=== PATIENT | male | born 1950 | race Caucasian/White ===

== ENCOUNTER → 2017-05-30 | Outpatient (CLI) | payer MEDICARE, BC ==
--- NOTE | 2017-05-30 16:09 | CT ---
EXAMINATION TYPE: High resolution CT chest DATE OF EXAM: 05/30/2017 COMPARISON: Radiograph 05/23/2017 HISTORY: 66-year-old male with emphysema and years of exposure to silica dust. TECHNIQUE: Contiguous axial scanning of the chest without IV contrast. HRCT technique was utilized wi th 1 mm slice thickness and 1 cm gap. Both supine and prone imaging was utilized. CT DLP: 268.00 mGycm Automated exposure control for dose reduction was used. FINDINGS: The heart is normal size without pericardial effusion. Coronary vessel calcifications are present in the ring marker for coronary artery disease. Aorta is normal caliber with mild prostatic calcifications and conventional arch vessel branching scott lilliam. Large caliber to the main right and left pulmonary arteries are 3.0 cm each, suggesting underlying pu lmonary arterial hypertension. Some calcified mediastinal lymph nodes are present particularly in the right paratracheal region jair uring up to 1.1 cm. Subcarinal lymph node shows punctate calcification and measures up to 1.2 cm. Evaluation of the lungs shows centrilobular and saphenous edema but additionally moderate bronchial w all thickening and mid lung predominate finding the median reticular densities. No areas of consolidation are seen. There is associated patchy groundglass in these areas as well whi ch extends superiorly to the mid and lower lung. No scarlet honeycombing though fine subpleural microcy stic changes noted. Visualized upper abdomen shows no gross abnormality. Bones: Partially visualized large lipoma deep to the left latissimus dorsi along the left posterior m id back. This measures up to 9.3 cm and can be followed clinically. Endplate spondylosis throughout. IMPRESSION: 1. INTERSTITIAL LUNG DISEASE WITH INTERSTITIAL FIBROSIS AND PATCHY AREAS OF GROUNDGLASS. THIS IS SUPE RIMPOSED ON EMPHYSEMA AND HAS A MID TO LOWER LUNG PREDOMINANCE. WHILE FINDINGS COULD RELATE TO SILICO SIS, THE LACK OF UPPER LUNG PREDOMINANCE MAKES THIS AN ATYPICAL CASE . CORRELATE FOR THE POSSIBILITY OF FIBROTIC NSIP. NO SCARLET HONEYCOMBING. 2. SOME CALCIFIED MEDIASTINAL LYMPH NODES COULD REFLECT PRIOR GRANULOMATOUS DISEASE OR A SEQUELA OF S ILICA INHALATION. 3. CAD AND PULMONARY ARTERIAL HYPERTENSION. 4. LARGE 9.3 CM LIPOMA DEEP TO THE LEFT LATISSIMUS DORSI ALONG THE MID BACK. THIS CAN BE FOLLOWED CLI NICALLY. IF ANY ENLARGEMENT IS NOTED, DEDICATED IMAGING CAN BE PERFORMED.
== END | disposition home or self-care (01) ==
LOC: RADCTMAIN 15:04
PROVIDERS: ATTEND Internal Medicine Critical Care Medicine
DX: J84.9 Interstitial pulmonary disease, unspecified (principal); J43.9 Emphysema, unspecified; I25.10 Atherosclerotic heart disease of native coronary artery without angina pectoris; I27.21 Secondary pulmonary arterial hypertension; D17.1 Benign lipomatous neoplasm of skin and subcutaneous tissue of trunk
CPT/HCPCS: 71250

== ENCOUNTER → 2017-08-24 | Outpatient (CLI) | payer MEDICARE, BC ==
[2017-08-24 13:12] LABS: HGB 15.4 gm/dL (13.0-17.5); Hypochromasia Marked; MCH 26.5 pg (25.0-35.0); MCHC 29.7 g/dL (31.0-37.0); MCV 89.2 fL (80.0-100.0); Mean Platelet Volume 7.6; Platelet Count 291 k/uL (150-450); RBC 5.84 m/uL (4.30-5.90); RDW 14.4 % (11.5-15.5); WBC 9.6 k/uL (3.8-10.6)
[2017-08-24 13:24] LABS: Anion Gap 14 mmol/L; Blood Urea Nitrogen 15 mg/dL (9-20); Carbon Dioxide 30 mmol/L (22-30); Chloride 99 mmol/L (98-107); Potassium 5.7 mmol/L (3.5-5.1); Sodium 143 mmol/L (137-145)
== END | disposition home or self-care (01) ==
LOC: LABPAT 12:27
PROVIDERS: ATTEND Internal Medicine Interventional Cardiology
DX: Z01.812 Encounter for preprocedural laboratory examination (principal); I73.9 Peripheral vascular disease, unspecified
CPT/HCPCS: 36415; 80051; 82565; 84520; 85027

== ENCOUNTER 2017-08-29 06:22 | Day surgery (SDC) | payer MEDICARE, BC ==
[2017-08-18 16:03] VITALS: BMI 35.7
[~2017-08-29 06:22] MED LIST: ALPRAZolam 0.25 MG TAB PO PRN; ASPIRIN 325 MG TAB PO STA; SODIUM CHLORIDE 0.9% 1,000 ML in EMPTY BAG 1 BAG IV ONE
[2017-08-29 07:12] VITALS: TEMP 98
[2017-08-29] MEDS ORDERED: SODIUM CHLORIDE 0.9% 1,000 ML IV ONE (07:31)
[2017-08-29] MEDS ORDERED: MIDAZOLAM 2 MG/2 ML VIAL IV ONE (08:11)
[2017-08-29] MEDS: LIDOCAINE 2% INJ 20 MG/ML SQ ONE ×2 (08:15→08:33)
[2017-08-29] MEDS ORDERED: METOPROLOL TARTRATE 5 MG/5 ML VIAL IVP ONE (08:23)
[2017-08-29] MEDS ORDERED: hydrALAZINE HCL 20 MG/ML 1 ML VIAL IV ONE (08:23)
[2017-08-29] MEDS: VERAPAMIL SYRINGE (5 MG/10 ML) INTRAARTER ONE ×2 (08:34→08:54)
[2017-08-29] MEDS ORDERED: HEPARIN SODIUM 1,000 UN/ML (10ML VL) IV ONE (08:37)
[2017-08-29] MEDS ORDERED: IODIXANOL 320 MG/ML 100 ML INTRAARTER ONE (08:54)
[2017-08-29] MEDS ORDERED: SODIUM CHLORIDE 0.9% 1,000 ML IV SCH (09:15)
--- NOTE | 2017-08-29 10:25 | AN ---
ANGIOGRAPHY REPORT PERIPHERAL ANGIOGRAM DATE OF SERVICE: 08/29/2017 PERFORMING PHYSICIAN: Gagandeep Montoya MD, fresh work wrapper layer. PROCEDURE PERFORMED: 1. An abdominal aortogram. 2. Bilateral lower extremities runoff. 3. Selective left common femoral artery angiogram. INDICATION: This is a pleasant 66-year-old gentleman who sees Dr. Ibanez in the office as an outpatient who is known to have peripheral arterial disease, who was experiencing bilateral lower extremity intermittent claudication. He was brought today to undergo an abdominal aortogram and bilateral lower extremity runoff. APPROACH: Right radial artery. COMPLICATION: None. LEVEL OF SEDATION: Moderate with sedation length of 44 minutes. PROCEDURE DESCRIPTION: After obtaining an informed consent, the patient was brought to the cardiac medical laboratory scientist. Initially I attempted accessing the left common femoral artery, but I was unable. At that point, the right radial artery was cannulated using micropuncture technique and the micropuncture wire passed easily then I placed a 5-Turkmen sheath in the right radial artery. After that, I did give the patient 2 mg of verapamil IA and 10,000 units of heparin IV. After that, I did an abdominal aortogram and bilateral lower extremities runoff using 5-Turkmen pigtail catheter, which was initially placed at the level of the renal arteries then it was pulled into above the bifurcation of the aorta into right and left common iliac arteries. After that I did select the left external iliac artery to do selective left common femoral artery angiogram. The procedure was completed without any complication. SELECTIVE PERIPHERAL ANGIOGRAM: 1. The abdominal aorta is calcified with mild to moderate disease only. 2. Common iliac arteries: The right common iliac artery is angiographically normal. The left common iliac artery has a lesion appeared to be in the range of 70% to 80%. 3. Internal iliac arteries: The right and left internal iliac arteries are patent. 4. External iliac arteries: The right and left external iliac arteries are patent. 5. The common femoral arteries: The right and left common femoral arteries appear to have mild disease only. 6. Profunda: The right and left profunda are patent. 7. The SFA: Both SFAs are occluded on a long segment extends from the ostium all the way to the popliteal. The right SFA has a stump. The SFA has possible stump seen. 8. Popliteal: The right and left popliteal are occluded at the P1 segment. 9. Below the knee: There are one-vessel runoff below the knee on the right side with AT and 2 vessel runoff below the knee on the left side with AT and peroneal. CONCLUSION: 1. Severe disease involving the left common iliac artery. 2. Occluded bilateral SFA as described above. 3. One vessel runoff below the knee on the right side and two-vessel runoff below the knee on the left side. POSTPROCEDURE MANAGEMENT: The patient was scheduled to undergo a POST HOLE DIGGER of the left common iliac artery as well as POST HOLE DIGGER of the bilateral SFA. MMODL / IJN: [id number] /
[2017-08-29 12:52] VITALS: RESP 18
[2017-08-29 13:41] VITALS: BP 165/79; PULSE 78
--- NOTE | 2017-09-04 14:30 | IR ---
EXAMINATION TYPE: IR angio abdominal w runoff DATE OF EXAM: 08/29/2017 COMPARISON: NONE HISTORY: Peripheral vascular occlusive disease. Fluoroscopy was provided to the referring clinician. See dictated report from cardiology. 7.4 minut es of fluoroscopy provided.
== END 2017-08-29 13:51 | disposition home or self-care (01) ==
LOC: CATHCVL 06:22
PROVIDERS: ATTEND Internal Medicine Interventional Cardiology
DX: I70.213 Atherosclerosis of native arteries of extremities with intermittent claudication, bilateral legs (principal); I70.0 Atherosclerosis of aorta; I25.10 Atherosclerotic heart disease of native coronary artery without angina pectoris; I10 Essential (primary) hypertension; Z86.73 Personal history of transient ischemic attack (TIA), and cerebral infarction without residual deficits; I25.2 Old myocardial infarction; Z95.5 Presence of coronary angioplasty implant and graft; E78.2 Mixed hyperlipidemia; I25.5 Ischemic cardiomyopathy; Z79.02 Long term (current) use of antithrombotics/antiplatelets; Z79.899 Other long term (current) drug therapy
CPT/HCPCS: 36246; 75625; 75716; 84132; C1894 ×2; C1769 ×3; J2001; J2250; J0360; Q9967; J1644

== ENCOUNTER → 2017-09-20 | Outpatient (CLI) | payer MEDICARE, BC ==
[2017-09-20 13:53] LABS: HGB 14.9 gm/dL (13.0-17.5); Hypochromasia Slight; MCH 26.4 pg (25.0-35.0); MCHC 30.4 g/dL (31.0-37.0); MCV 86.8 fL (80.0-100.0); Mean Platelet Volume 7.7; Platelet Count 253 k/uL (150-450); RBC 5.64 m/uL (4.30-5.90); RDW 14.8 % (11.5-15.5); WBC 10.3 k/uL (3.8-10.6)
[2017-09-20 14:11] LABS: Anion Gap 11 mmol/L; Blood Urea Nitrogen 15 mg/dL (9-20); Carbon Dioxide 28 mmol/L (22-30); Chloride 99 mmol/L (98-107); Potassium 4.9 mmol/L (3.5-5.1); Sodium 138 mmol/L (137-145)
== END | disposition home or self-care (01) ==
LOC: LABPAT 13:22
PROVIDERS: ATTEND Internal Medicine Interventional Cardiology
DX: Z01.812 Encounter for preprocedural laboratory examination (principal); I73.9 Peripheral vascular disease, unspecified
CPT/HCPCS: 36415; 80051; 82565; 84520; 85027

== ENCOUNTER 2017-09-27 10:04 | Day surgery (SDC) | payer MEDICARE, BC ==
[2017-09-27] MEDS ORDERED: ISOSORBIDE MONONITRATE ER 30 MG TAB.ER.24H PO STA (10:21)
[2017-09-27] MEDS ORDERED: LISINOPRIL 5 MG TAB PO STA (10:21)
[2017-09-27] MEDS ORDERED: ATENOLOL 25 MG TAB PO STA (10:21)
[2017-09-27] MEDS ORDERED: SODIUM CHLORIDE 0.9% 1,000 ML IV ONE ×2 (11:00→18:06)
[2017-09-27] MEDS ORDERED: MIDAZOLAM 2 MG/2 ML VIAL IVP ONE (13:05)
[2017-09-27] MEDS ORDERED: LIDOCAINE 2% INJ 20 MG/ML SQ ONE (13:11)
[2017-09-27] MEDS: fentaNYL (PF) 50 MCG/ML 2 ML AMP IVP ONE ×3 (13:18→14:13)
[2017-09-27] MEDS: HEPARIN SODIUM 1,000 UN/ML (10ML VL) IV ONE ×2 (13:21→15:00)
[2017-09-27] MEDS: MORPHINE SULFATE 4 MG/ML SYRINGE IVP ONE ×4 (14:28→18:08)
[2017-09-27] MEDS: MIDAZOLAM 2 MG/2 ML VIAL IVP ONE ×4 (14:34→15:56)
[2017-09-27] MEDS ORDERED: SODIUM CHLORIDE 0.9% 500 ML with niCARdipine 6.25 MG, NITROGLYCERIN-D5W PMX 0.05 MG, HE... IV ONE ×4 (15:01)
[2017-09-27] MEDS ORDERED: KETAMINE 10 MG/ML 20 ML VIAL ONE (16:40)
[2017-09-27] MEDS ORDERED: ePHEDrine SULFATE/0.9% NACL/PF 50 MG/5 ML SYRINGE IV ONE (16:40)
[2017-09-27] MEDS ORDERED: PROPOFOL 10 MG/ML 20 ML VIAL IV ONE (16:40)
[2017-09-27] MEDS ORDERED: HYDROmorphone (PF) 1 MG/ML ONE (16:40)
[2017-09-27] MEDS ORDERED: NITROGLYCERIN 1000MCG/10ML SYRINGE INTRAARTER ONE (17:38)
[2017-09-27] MEDS: niCARdipine Syringe (1,000 mcg/10 mL) INTRAARTER ONE ×2 (17:39→17:58)
[2017-09-27] MEDS ORDERED: IODIXANOL 320 MG/ML 100 ML INTRAARTER ONE (18:05)
[2017-09-27] MEDS ORDERED: CLOPIDOGREL 75 MG TAB PO ONE (18:24)
[2017-09-27] MEDS ORDERED: NITROGLYCERIN SL TABS 0.4 MG TAB SUBLINGUAL PRN (18:34)
[2017-09-27] MEDS ORDERED: ALBUTEROL NEBULIZED 2.5 MG/3 ML INHALATION PRN (18:34)
[2017-09-27] MEDS ORDERED: SODIUM CHLORIDE 0.9% 1,000 ML IV SCH (18:45)
[2017-09-27] MEDS ORDERED: ATROPINE SULFATE 0.1 MG/ML 10ML SYRINGE ONE (21:07)
[2017-09-27] MEDS: SYMBICORT 160-4.5 MCG INHALER INHALATION SCH (21:43)
[2017-09-27] MEDS ORDERED: MORPHINE SULFATE 4 MG/ML SYRINGE IVP PRN (22:06)
[2017-09-27 22:35] VITALS: BMI 36.1
--- NOTE | 2017-09-27 22:56 | AN ---
ANGIOGRAPHY REPORT . DATE OF SERVICE: September 27, 2017 PERFORMING PHYSICIAN: Gagandeep Montoya MD, dairy hand. PROCEDURE PERFORMED: 1. Selective right superficial femoral artery angiogram. 2. Selective right evtzz-bnj-gytn angiogram. 3. Selective left common femoral artery angiogram. 4. Successful stenting of the distal, mid, and proximal right superficial femoral artery using self expandable stents as it will be described later in this report with good angiographic results. INDICATION: This is a pleasant 66-year-old gentleman who was experiencing bilateral lower extremities intermittent claudication and underwent a peripheral angiogram a few weeks ago and that revealed occluded bilateral superficial femoral artery. He was brought today to undergo a DIRECTOR OF TRANSPORTATION of the right SFA. APPROACH: 1. Left common femoral artery. 2. Right anterior tibial artery. COMPLICATION: None. LEVEL OF SEDATION: Moderate with sedation length of 67 minutes. PROCEDURE DESCRIPTION: After obtaining an informed consent, the patient was brought to the cardiac prosthetic lab technician. The left common femoral artery was cannulated using micropuncture technique under ultrasound guidance, the micropuncture wire passed easily, then I placed a 6-Danish sheath in the left common femoral artery. It was 11 cm 6-Danish sheath. Subsequently I did select the right profunda using an 035 advantage wire with a 5-Danish rim catheter. After that, I did exchange my 11 cm 6-Danish sheath into 70 cm 6-Danish sheath using 035 advantage wire. The tip of the sheath was positioned in the right common femoral artery. At that point, anticoagulation was initiated using heparin and the patient was given a weight-based heparin with continuous ACT monitoring throughout the procedure. I did try crossing the chronic total occlusion of the right superficial femoral artery, but I was unable in antegrade technique, where the wire was just going behind 2 previous stents in the right SFA. The wire was going behind the stent struts. After I attempted crossing using an 014 wire, 018 as well as 035 wire. After that, I decided to go ahead and access the right anterior tibial artery and cross the ASSISTANT MANAGER QUALITY MANAGEMENT using retrograde technique. I did access the right anterior tibial artery using micropuncture technique with ultrasound guidance and I placed 4-Danish sheath over the right anterior tibial artery. After that, I was able to cross the chronic total occlusion of the right SFA using an 035 stiff Glidewire with the backup support of 035 CXI catheter. After that, I was able to snare the wire in the right common femoral artery to the sheath in the left common femoral artery. Then I did exchange my 035 Glidewire into 035 stiff wire using 035 CXI catheter. Subsequently I did multiple balloon angioplasty of the right SFA using initially 4.0 balloon then 5.0 balloon. After that, I did deploy distally 7.0 x 120 and Zilver PTX drug coated stent. In the midportion, I deployed 7 0 x 120 another Zilver PTX drug coated stent as well. In the very proximal portion, I deployed 70 x 150 another self expandable stent. There was overlap about 2 mm between the 3 stents. After that, I did post dilate everything using 6 mm balloon. The following angiogram showed haziness in the very proximal right SFA and seems to be there was a flow- limiting dissection which I decided to cover, so I did deploy 7 0 x 60 mm another Zilver PTX drug coated stent. The final angiogram showed good angiographic results without perforation and without dissection with good flow. The procedure was completed without any complication. After that I did exchange my 70 cm 6-Danish sheath into 11 cm 6-Danish sheath using a 035 Glidewire and the procedure was completed without any complication. POSTPROCEDURE MANAGEMENT: 1. Dual anti-platelet therapy. 2. Risk factors modifications. 3. DIRECTOR OF TRANSPORTATION of the left common iliac artery down the line. MMODL / IJN: [id number] /
[2017-09-28 06:30] LABS: Basophils % (A) 0 %; Eosinophils # (A) 0.2 k/uL (0-0.7); Eosinophils % (A) 2 %; HCT 41.9 % (39.0-53.0); HGB 12.9 gm/dL (13.0-17.5); Hypochromasia Moderate; Lymphocytes # (A) 1.4 k/uL (1.0-4.8); Lymphocytes % (A) 13 %; MCH 27.2 pg (25.0-35.0); MCHC 30.8 g/dL (31.0-37.0); MCV 88.5 fL (80.0-100.0); Mean Platelet Volume 7.3; Monocytes # (A) 0.4 k/uL (0-1.0); Monocytes % (A) 4 %; Neutrophils # (A) 8.5 k/uL (1.3-7.7); Neutrophils % (A) 80 %; Platelet Count 223 k/uL (150-450); RBC 4.73 m/uL (4.30-5.90); RDW 14.4 % (11.5-15.5); WBC 10.6 k/uL (3.8-10.6)
[2017-09-28 06:44] LABS: Anion Gap 11 mmol/L; Blood Urea Nitrogen 13 mg/dL (9-20); Calcium 8.9 mg/dL (8.4-10.2); Carbon Dioxide 29 mmol/L (22-30); Chloride 100 mmol/L (98-107); Glucose 122 mg/dL (74-99); Potassium 4.3 mmol/L (3.5-5.1); Sodium 140 mmol/L (137-145)
[2017-09-28] MEDS: SYMBICORT 160-4.5 MCG INHALER INHALATION SCH (08:25)
[2017-09-28] MEDS ORDERED: SPIRONOLACTONE 25 MG TAB PO SCH (09:00)
[2017-09-28] MEDS ORDERED: ATORVASTATIN 40 MG TAB PO SCH (09:00)
[2017-09-28] MEDS ORDERED: CLOPIDOGREL 75 MG TAB PO SCH (09:00)
[2017-09-28] MEDS ORDERED: predniSONE 10 MG TAB PO SCH (09:00)
[2017-09-28] MEDS ORDERED: ASPIRIN 325 MG TAB PO SCH (09:00)
[2017-09-28] MEDS ORDERED: ATENOLOL 25 MG TAB PO SCH (09:00)
[2017-09-28] MEDS ORDERED: FUROSEMIDE 40 MG TAB PO SCH (09:00)
[2017-09-28] MEDS ORDERED: ISOSORBIDE MONONITRATE ER 30 MG TAB.ER.24H PO SCH (09:00)
[2017-09-28 09:35] VITALS: BP 142/89; PULSE 82; RESP 18; TEMP 97.9
--- NOTE | 2017-09-28 09:38 | IR ---
EXAMINATION TYPE: IR waitstaff captain femoral popliteal DATE OF EXAM: 09/27/2017 COMPARISON: NONE HISTORY: Peripheral vascular occlusive disease. Fluoroscopy was provided to the referring clinician. See dictated report from cardiology.
--- NOTE | 2017-09-28 09:45 | DS ---
DISCHARGE SUMMARY BRIEF HISTORY: This is a pleasant 66-year-old gentleman who was admitted to the hospital yesterday and underwent successful percutaneous peripheral intervention of the right SFA with good angiographic results and without any complication. On followup with him today, he does have soft and nontender left groin. He is going to be discharged home on dual anti-platelet therapy and I will follow up with the patient in a week in the office. MMNELDA / JUAN CN: [id number] /
--- NOTE | 2017-09-28 09:46 | US ---
EXAMINATION TYPE: US guide vascular access DATE OF EXAM: 09/27/2017 COMPARISON: NONE HISTORY: Peripheral vascular occlusive disease. Ultrasound guidance was provided to the referring clinician. See dictated report from cardiology.
== END 2017-09-28 09:11 | disposition home or self-care (01) ==
LOC: CATHCVL 10:04 → 6SEL 19:28 → CATHCVL 09-28 09:11
PROVIDERS: ATTEND Internal Medicine Interventional Cardiology
DX: I70.211 Atherosclerosis of native arteries of extremities with intermittent claudication, right leg (principal); I10 Essential (primary) hypertension; I25.10 Atherosclerotic heart disease of native coronary artery without angina pectoris; E78.2 Mixed hyperlipidemia; I25.5 Ischemic cardiomyopathy; I71.9 Aortic aneurysm of unspecified site, without rupture; J44.9 Chronic obstructive pulmonary disease, unspecified; G47.33 Obstructive sleep apnea (adult) (pediatric); J18.9 Pneumonia, unspecified organism; N20.0 Calculus of kidney; Z99.89 Dependence on other enabling machines and devices; Z95.5 Presence of coronary angioplasty implant and graft; I25.2 Old myocardial infarction; Z86.73 Personal history of transient ischemic attack (TIA), and cerebral infarction without residual deficits; F17.210 Nicotine dependence, cigarettes, uncomplicated; Z79.899 Other long term (current) drug therapy; Z79.51 Long term (current) use of inhaled steroids; Z79.52 Long term (current) use of systemic steroids
CPT/HCPCS: 94640; 37226; 85347; 80048; 85025; 76937; C1894 ×3; C1773; C1769 ×9; C1725 ×2; C1887; C1876; C1874 ×2; J2001; J2250; J2270 ×2; J1644 ×3; Q9967; J3010; J7512

== ENCOUNTER → 2017-10-23 | Outpatient (CLI) | payer MEDICARE, BC ==
[2017-10-23 14:17] LABS: Anion Gap 12 mmol/L; Blood Urea Nitrogen 15 mg/dL (9-20); Carbon Dioxide 28 mmol/L (22-30); Chloride 100 mmol/L (98-107); Sodium 140 mmol/L (137-145)
[2017-10-23 14:25] LABS: HCT 42.4 % (39.0-53.0); HGB 12.8 gm/dL (13.0-17.5); Hypochromasia Marked; MCH 26.6 pg (25.0-35.0); MCHC 30.3 g/dL (31.0-37.0); MCV 87.8 fL (80.0-100.0); Mean Platelet Volume 7.4; Platelet Count 356 k/uL (150-450); RBC 4.82 m/uL (4.30-5.90); RDW 14.7 % (11.5-15.5); WBC 11.5 k/uL (3.8-10.6)
== END | disposition home or self-care (01) ==
LOC: LABPAT 13:18
PROVIDERS: ATTEND Internal Medicine Interventional Cardiology
DX: Z01.812 Encounter for preprocedural laboratory examination (principal); I73.9 Peripheral vascular disease, unspecified
CPT/HCPCS: 36415; 80051; 82565; 84520; 85027

== ENCOUNTER 2017-11-01 07:27 | Inpatient (IN) | payer MEDICARE, BC ==
[2017-10-26 17:37] VITALS: BMI 34.9
[2017-11-01] MEDS ORDERED: ISOSORBIDE MONONITRATE ER 30 MG TAB.ER.24H PO STA (08:06)
[2017-11-01] MEDS ORDERED: LISINOPRIL 5 MG TAB PO STA (08:06)
[2017-11-01] MEDS ORDERED: ATENOLOL 25 MG TAB PO STA (08:06)
[2017-11-01 08:08] LABS: Basophils % (A) 0 %; Eosinophils # (A) 0.2 k/uL (0-0.7); Eosinophils % (A) 2 %; HCT 40.9 % (39.0-53.0); HGB 12.7 gm/dL (13.0-17.5); Hypochromasia Moderate; Lymphocytes # (A) 1.9 k/uL (1.0-4.8); Lymphocytes % (A) 18 %; MCH 26.7 pg (25.0-35.0); Mean Platelet Volume 7.2; Monocytes # (A) 0.5 k/uL (0-1.0); Monocytes % (A) 5 %; Neutrophils # (A) 7.8 k/uL (1.3-7.7); Neutrophils % (A) 74 %; Platelet Count 318 k/uL (150-450); RBC 4.76 m/uL (4.30-5.90); RDW 15.2 % (11.5-15.5); WBC 10.6 k/uL (3.8-10.6)
[2017-11-01] MEDS ORDERED: PHENYLEPHRINE-0.9% NACL SYG 1 MG/10 ML SYRINGE ONE (09:20)
[2017-11-01] MEDS ORDERED: fentaNYL (PF) 50 MCG/ML 2 ML AMP ONE (09:20)
[2017-11-01] MEDS ORDERED: PROPOFOL 10 MG/ML 20 ML VIAL IV ONE (09:20)
[2017-11-01] MEDS ORDERED: ePHEDrine SULFATE/0.9% NACL/PF 50 MG/5 ML SYRINGE IV ONE (09:20)
[2017-11-01] MEDS ORDERED: MIDAZOLAM 2 MG/2 ML VIAL ONE (09:20)
[2017-11-01] MEDS ORDERED: HEPARIN SODIUM,PORCINE 10,000 UNIT/ML 1 ML VIAL ONE (09:20)
[2017-11-01] MEDS ORDERED: LIDOCAINE 2% INJ 20 MG/ML SQ ONE (09:47)
[2017-11-01] MEDS ORDERED: IV FLUID CONTINUATION 1,000 ML IV ONE (11:30)
[2017-11-01] MEDS ORDERED: IODIXANOL 320 MG/ML 100 ML INTRAARTER ONE ×3 (12:25→13:01)
[2017-11-01] MEDS ORDERED: NITROGLYCERIN 1000MCG/10ML SYRINGE INTRAARTER ONE ×2 (12:58→13:00)
[2017-11-01] MEDS ORDERED: niCARdipine Syringe (1,000 mcg/10 mL) INTRAARTER ONE (12:58)
[2017-11-01] MEDS ORDERED: niCARdipine Syringe (1,000 mcg/10 mL) INTRACORON ONE (12:58)
[2017-11-01] MEDS: fentaNYL (PF) 50 MCG/ML 2 ML AMP IV ONE ×3 (13:00→16:55)
[2017-11-01] MEDS ORDERED: MIDAZOLAM 2 MG/2 ML VIAL IV ONE (13:00)
[2017-11-01] MEDS ORDERED: IODIXANOL 270 MG/ML 50 ML ML INTRAARTER ONE (13:01)
[2017-11-01] MEDS ORDERED: SYMBICORT 160-4.5 MCG INHALER INHALATION PRN (14:21)
[2017-11-01] MEDS ORDERED: NITROGLYCERIN SL TABS 0.4 MG TAB SUBLINGUAL PRN (14:21)
[2017-11-01] MEDS ORDERED: SODIUM CHLORIDE 0.9% 1,000 ML IV SCH (14:30)
[2017-11-01] MEDS: ePHEDrine 50 MG/ML 1 ML AMP IVP ONE ×4 (14:40→15:41)
--- NOTE | 2017-11-01 15:00 | IR ---
Fluoroscopy HISTORY: Peripheral vascular occlusive disease 82 minutes fluoroscopy time supplied to the referring clinician. 1040 intraoperative C-arm images do cument the procedure. See dictated report from cardiology.
--- NOTE | 2017-11-01 15:27 | PTCA ---
PERCUTANEOUSTRANS CORORONARY ANGIOGRAPHY PERCUTANEOUS PERIPHERAL INTERVENTION: DATE OF SERVICE: 11/01/2017. PERFORMING PHYSICIAN: Gagandeep Montoya MD, Steel Box Toe Inserter. PROCEDURE PERFORMED: 1. Selective left cgdjp-qoq-gppn angiogram. 2. Selective left SFA angiogram. 3. Selective left common femoral artery angiogram. 4. Selective left common iliac artery angiogram. 5. Successful crossing chronic total occlusion of the left SFA on the long segment. 6. An atherectomy of the left SFA using the TurboHawk device. 7. Balloon angioplasty of the left SFA. 8. Intravascular ultrasound IVUS of the left popliteal and left SFA. 9. Intravascular ultrasound IVUS of the left SFA and left common iliac artery. 10.Successful stenting of the left SFA. 11.Successful stenting of the left popliteal. 12.Successful stenting of the left common iliac artery. INDICATION: This is a pleasant 67-year-old gentleman who was experiencing bilateral lower extremities intermittent claudication and he underwent a peripheral angiogram a few weeks ago and that showed the occlusion of bilateral SFA. He underwent successful percutaneous coronary intervention of the right SFA and was brought today to undergo percutaneous peripheral intervention of the left SFA. APPROACH: Right common femoral artery. COMPLICATION: None. LEVEL OF SEDATION: Deep sedation was performed with the anesthesiologist in the room. The procedure was performed under general anesthesia and the patient was intubated. None. PROCEDURE DESCRIPTION: After obtaining an informed consent, the patient was brought to the Cardiac Final Inspector Balance Wheel. The right common femoral artery was cannulated using micropuncture technique. The micropuncture wire passed easily, then I placed a 6-Liberian sheath 11 cm in the right common femoral artery. At that point, anticoagulation was initiated using heparin and the patient was given a weight-based heparin. I gave the patient 10,000 units of heparin IV and I did monitor the ACT throughout the procedure. After that, I did select the left profunda using 5-Liberian Rim catheter, after that I did select left profunda using a 5-Liberian Rim catheter with 0.35 advantage wire. After that, I did exchange my 11 cm sheath into 55 cm 6-Liberian Raabe sheath using an 0,35 advantage wire. The tip of the sheath was positioned in the left common femoral artery. Subsequently, I was able to find the stump of the left SFA and cross the chronic total occlusion of the left SFA using a 0.18 paredes Glidewire and subsequently, a 0.35 stiff Glidewire. After that, I did that with the backup support of 0.35 CXI catheter. After that, I did advance the CXI catheter, which was 0.18 CXI catheter into the left popliteal to prove that I was in the true lumen. Because of the difficulties advancing the CXI catheter, I did not attempted doing atherectomy right away, but I did balloon angioplasty using initially 3 mm coronary balloon and after that 4 mm peripheral balloon. After that, I did intravascular ultrasound IVUS of the left SFA which showed that I was in subintimal space in the mid and distal SFA and in the true lumen in the proximal left SFA. Because of that, I did atherectomy using the TurboHawk device only on the proximal part of the left SFA. Subsequently, I did balloon angioplasty using 6 mm balloon by 250 mm balloon. After that, I reassessed the angiogram of the left SFA and I decided to do a drug-coated balloon on the proximal and distal portion including the popliteal and stenting of the midportion. For the midportion, I did deploy 7.0 x 140 mm Zilver PTX drug-coated stent where the stent was positioned under fluoroscopy guidance and deployed under fluoroscopy guidance as well. I did post dilate the stent using 6 mm balloon. For the proximal SFA and for the distal left SFA, I did balloon angioplasty using a drug-coated balloon. Distally, I did use coated balloon and proximally I did use in back to drug-coated balloon. Both balloons were 6 mm balloon. The following angiogram showed haziness in the left SFA with sluggish flow. I decided to stent that area, so I did deploy the Supera stent, which was the Supera was 6 x 150 mm stent where again the stent was positioned under fluoroscopy guidance and deployed under fluoroscopy guidance. I did overlap between the 2 stents between the Supera as well as Zilver PTX in the mid SFA. For the proximal left SFA, I did deploy another Zilver PTX which was 7 x 80 mm Zilver PTX in the proximal left SFA with again overlap between this stent and the stent in the mid left SFA. After that, I did balloon angioplasty of over the overlap area between the Zilver PTX in the mid SFA and the other Zilver in the proximal left SFA and superior in the distal left SFA. I did balloon that area using 6 mm balloon. The following angiogram showed good angiographic results. After that, I did selective left common iliac artery angiogram. I did direct stenting of the of the lesion in the left common iliac artery using 8 x 39 mm Omnilink stent where the stent was positioned under fluoroscopy guidance and deployed again under 12 atmospheres for about 1 minute. The following angiogram showed good angiographic results and the procedure was completed without any complication. After that, I did exchange my 55 cm 6-Liberian sheath into 11 cm 6-Liberian sheath using 0.35 advantage wire. The procedure was completed without any complication. POSTPROCEDURE MANAGEMENT: 1. Dual anti-platelet therapy. 2. Risk factors modifications. 3. Follow up with the patient. MMODL / IJN: [id number] /
[2017-11-01] MEDS ORDERED: LACTATED RINGERS 1,000 ML IV ONE ×4 (15:34→16:28)
[2017-11-01 16:24] LABS: HCT 33.4 % (39.0-53.0); HGB 10.2 gm/dL (13.0-17.5); Hypochromasia Marked; MCH 27.2 pg (25.0-35.0); MCHC 30.4 g/dL (31.0-37.0); MCV 89.4 fL (80.0-100.0); Mean Platelet Volume 7.6; Platelet Count 278 k/uL (150-450); RBC 3.74 m/uL (4.30-5.90); RDW 15.1 % (11.5-15.5); WBC 14.2 k/uL (3.8-10.6)
[2017-11-01 17:28] LABS: Glucose,Whole Blood 100 mg/dL (75-99)
[2017-11-01] MEDS ORDERED: SODIUM CHLORIDE 0.9% 250 ML IV ONE (18:03)
[2017-11-01] MEDS ORDERED: NOREPINEPHRIN 4 MG-0.9% NS PMX 4 MG/250 ML ML IV SCH (18:15)
[2017-11-01] MEDS ORDERED: MORPHINE SULFATE 4MG/4ML SYRG IVP PRN (19:13)
[2017-11-01] MEDS ORDERED: OXYMETAZOLINE 0.05% NASL SPRAY 1 SPRAY BOTTLE NASAL STA (19:29)
[2017-11-01 21:29] LABS: Basophils % (A) 0 %; Eosinophils % (A) 0 %; HCT 32.7 % (39.0-53.0); HGB 9.9 gm/dL (13.0-17.5); Hypochromasia Moderate; Lymphocytes # (A) 1.6 k/uL (1.0-4.8); Lymphocytes % (A) 11 %; MCH 26.5 pg (25.0-35.0); MCHC 30.2 g/dL (31.0-37.0); Mean Platelet Volume 6.9; Monocytes # (A) 0.5 k/uL (0-1.0); Monocytes % (A) 3 %; Neutrophils # (A) 11.8 k/uL (1.3-7.7); Neutrophils % (A) 83 %; Platelet Count 277 k/uL (150-450); RBC 3.72 m/uL (4.30-5.90); RDW 14.8 % (11.5-15.5); WBC 14.2 k/uL (3.8-10.6)
[2017-11-02 05:14] LABS: Basophils % (A) 0 %; Eosinophils # (A) 0.1 k/uL (0-0.7); Eosinophils % (A) 1 %; HCT 33.1 % (39.0-53.0); HGB 10.2 gm/dL (13.0-17.5); Hypochromasia Moderate; Lymphocytes # (A) 1.8 k/uL (1.0-4.8); Lymphocytes % (A) 15 %; MCH 27.2 pg (25.0-35.0); MCHC 30.8 g/dL (31.0-37.0); MCV 88.2 fL (80.0-100.0); Monocytes # (A) 0.5 k/uL (0-1.0); Monocytes % (A) 4 %; Neutrophils % (A) 78 %; Platelet Count 278 k/uL (150-450); RBC 3.75 m/uL (4.30-5.90); RDW 14.7 % (11.5-15.5); WBC 11.6 k/uL (3.8-10.6)
[2017-11-02] MEDS: ALBUTEROL NEBULIZED 2.5 MG/3 ML INHALATION PRN ×2 (06:51→13:20)
[2017-11-02] MEDS ORDERED: ISOSORBIDE MONONITRATE ER 30 MG TAB.ER.24H PO SCH (09:00)
[2017-11-02] MEDS ORDERED: CLOPIDOGREL 75 MG TAB PO SCH (09:00)
[2017-11-02] MEDS ORDERED: LISINOPRIL 5 MG TAB PO SCH (09:00)
[2017-11-02] MEDS ORDERED: ATORVASTATIN 40 MG TAB PO SCH (09:00)
[2017-11-02] MEDS ORDERED: SPIRONOLACTONE 25 MG TAB PO SCH (09:00)
[2017-11-02] MEDS ORDERED: predniSONE 20 MG TAB PO SCH (09:00)
[2017-11-02] MEDS ORDERED: ATENOLOL 25 MG TAB PO SCH (09:00)
[2017-11-02] MEDS ORDERED: FUROSEMIDE 40 MG TAB PO SCH (09:00)
[2017-11-02] MEDS ORDERED: ASPIRIN 325 MG TAB PO SCH (09:00)
[2017-11-02 12:02] VITALS: TEMP 98.1
[2017-11-02] MEDS ORDERED: MORPHINE ORAL SOLN 10 MG/5 ML CUP PO PRN (13:35)
[2017-11-02 13:39] VITALS: PULSE 66
[2017-11-02 13:45] VITALS: BP 94/47
[2017-11-02 13:46] VITALS: RESP 20
--- NOTE | 2017-11-02 20:34 | DS ---
DISCHARGE SUMMARY ADMISSION DATE: November 01, 2017. DISCHARGE DATE: November 02, 2017. BRIEF HISTORY: This is a pleasant 66-year-old gentleman with known history of severe peripheral arterial disease who had symptoms of intermittent claudication, was admitted to the hospital yesterday and underwent successful recanalized the left superficial femoral artery from the right groin approach. The procedure was performed under general anesthesia. The procedure was a long extended procedure that lasted about 5 hours with good angiographic results and successful opening of the left superficial femoral artery. On follow up with the patient today, he is doing good. The right groin which was the access site is soft nontender and without any bruises. The patient is going to be discharged home on dual anti-platelet therapy as well as on statin. I will follow up with the patient next week in the office. MELISSA / CHIKIS: [id number] /
--- NOTE | 2017-11-03 12:48 | CDI ---
Last Revision, June 2017 Documentation Clarification Form Date: 11/03/17 From: Nkechi Lozano Phone: If you have a question regarding this query, please contact Parul Cho at [phone] between 8am and 5pm. Admit Date: 11/01/2017 4:30:00 PM Patient Name: Flaquito Lopez Visit Number: [id number] Discharge Date: 11/02/17 ATTENTION: The Clinical Documentation Specialists (CDI) and [facility] Coding Staff appreciate your assistance in clarifying documentation. Please respond to the clarification below the line at the bottom and electronically sign. The CDI & [facility] Coding staff will review the response and follow-up if needed. Please note: Queries are made part of the Legal Health Record. If you have any questions, please contact the author of this message via ITS. Dr. Gagandeep Montoya The patient had agnioplasty and stent insertion of the left SFA, left popliteal and left common iliac. Patient history/risk factorsThe patient has a history of atherosclerosi of the lower extremities with total occlusion of the left SFA. In your professional opinion, can you please clarify the types of stents that were implanted in the left SFA, popliteal and common iliac arteries? Drug eluting Non-drug eluting Other, please specify Unable to determine MTDD
--- NOTE | 2017-11-03 12:57 | CDI ---
Last Revision, June 2017 Documentation Clarification Form Date: 11/03/17 From: Nkechi Lozano Phone: If you have a question regarding this query, please contact Parul Cho at [phone] between 8am and 5pm. Admit Date: 11/01/2017 4:30:00 PM Patient Name: Flaquito Lopez Visit Number: [id number] Discharge Date: 11/02/17 ATTENTION: The Clinical Documentation Specialists (CDI) and [facility] Coding Staff appreciate your assistance in clarifying documentation. Please respond to the clarification below the line at the bottom and electronically sign. The CDI & [facility] Coding staff will review the response and follow-up if needed. Please note: Queries are made part of the Legal Health Record. If you have any questions, please contact the author of this message via ITS. Dr. Gagandeep Montoya, The patient had angioplasty and stent insertion of the left SFA, common iliac artery and popliteal artery on an outpatient basis. On 11/01/17, the patient was admitted as an inpatient. Patient history/risk factors: PVD due to atherosclerosis of the bilateraly lower extremities with intermittent claudication. Clinical Indicators: Per nursing documentation, the patient had a nose bleed and required intubation during the procedure. Vital Signs: On admission to inpatient: T. 98.1, P 64, R. 18, BP 119/61. Resp went up after admission to 27 - 30. In your professional opinion, can you please clarify the reason the patient was admitted as inpatient after surgery? Other, please specify Unable to determine . MTDD
--- NOTE | 2017-11-16 10:58 | AN ---
ANGIOGRAPHY REPORT ADDENDUM: The patient was admitted as inpatient because the procedure was performed under general anesthesia. MMNELDA / JUAN CN: [id number] /
== END 2017-11-02 14:15 | disposition home or self-care (01) | DRG 271 ==
LOC: CATHCVL 07:27 → 6SEL 14:11 → 6ICU 15:44 → CATHCVL 16:29 → 6ICU 16:30
PROVIDERS: ADMIT Internal Medicine Interventional Cardiology; ATTEND Internal Medicine Interventional Cardiology
PROC: B41GYZZ Fluoroscopy of Left Lower Extremity Arteries using Other Contrast (ICD-10-PCS; 2017-11-01)
PROC: B44GZZ3 Ultrasonography of Left Lower Extremity Arteries, Intravascular (ICD-10-PCS; 2017-11-01)
PROC: 047L36Z Dilation of Left Femoral Artery with Three Drug-eluting Intraluminal Devices, Percutaneous Approach (ICD-10-PCS; principal; 2017-11-01 08:30)
PROC: 04CL3ZZ Extirpation of Matter from Left Femoral Artery, Percutaneous Approach (ICD-10-PCS; 2017-11-01 08:30)
PROC: 047D34Z Dilation of Left Common Iliac Artery with Drug-eluting Intraluminal Device, Percutaneous Approach (ICD-10-PCS; 2017-11-01 08:30)
PROC: 047N34Z Dilation of Left Popliteal Artery with Drug-eluting Intraluminal Device, Percutaneous Approach (ICD-10-PCS; 2017-11-01 08:30)
DX: I70.213 Atherosclerosis of native arteries of extremities with intermittent claudication, bilateral legs (principal); I70.92 Chronic total occlusion of artery of the extremities; J44.9 Chronic obstructive pulmonary disease, unspecified; E78.2 Mixed hyperlipidemia; I10 Essential (primary) hypertension; I25.10 Atherosclerotic heart disease of native coronary artery without angina pectoris; I25.2 Old myocardial infarction; G47.33 Obstructive sleep apnea (adult) (pediatric); F17.210 Nicotine dependence, cigarettes, uncomplicated; I25.5 Ischemic cardiomyopathy; Z86.73 Personal history of transient ischemic attack (TIA), and cerebral infarction without residual deficits; Z79.52 Long term (current) use of systemic steroids; Z79.899 Other long term (current) drug therapy; Z95.5 Presence of coronary angioplasty implant and graft; Z71.6 Tobacco abuse counseling
CPT/HCPCS: 37221; 37227; 37252; 37253; 82565; 85025; 85027; 94640

== ENCOUNTER → 2018-05-17 | Outpatient (CLI) | payer MEDICARE, BC ==
--- NOTE | 2018-05-17 08:58 | CT ---
EXAMINATION TYPE: CT chest wo con DATE OF EXAM: 05/17/2018 COMPARISON: 05/30/2017 HISTORY: Interstitial lung disease CT DLP: 916.30 mGycm, Automated exposure control for dose reduction was used. CONTRAST: None TECHNIQUE: Axial images were obtained at 1 mm thick sections at 10 mm intervals. This will limit po rtions of the examination which may not be visualized within the [id number]. Images were obtained in the prone and supine views. FINDINGS: Portion of the thyroid visualized is normal. There is a focal area of increased density and calcification along the right midlung. Series 8 image 15. This area is a change from comparison. Some calcification is within the major fissure just inferi or to this region. There is some calcification and architectural distortion within the lateral right lung with tenting of the pleural margin. Series 8 image 19. This is an interval change from compariso n. Groundglass opacity increased linear markings are present through the mid and lower lung ryan sugge stive for pulmonary fibrosis. This may be progressive from comparison. No enlarged mediastinal or hilar adenopathy is evident. The ascending aorta diameter at the level o f the main pulmonary artery is 3.2 cm. The main pulmonary artery diameter at the bifurcation is 3.7 cm. Correlate for pulmonary hypertension. Limited CT sections are obtained through the upper abdomen. Abdomen is essentially unremarkable. Fat posterior to the left kidney level into the subcutaneous tissues again evident. This is not appear en larged. IMPRESSIONS: 1. Increasing changes throughout the bilateral lungs compatible with worsening pulmonary fibrosis. 2. Some scarring calcification may be developing in the right mid to lower lung field periphery. This is an interval change from last year.
== END | disposition home or self-care (01) ==
LOC: RADCTMAIN 07:58
PROVIDERS: ATTEND Internal Medicine Critical Care Medicine
DX: J84.10 Pulmonary fibrosis, unspecified (principal)
CPT/HCPCS: 71250

== ENCOUNTER 2018-12-17 09:57 | Emergency (ER) | payer MEDICARE, BC ==
[2018-12-17 10:07] VITALS: RESP 18
[2018-12-17] MEDS ORDERED: ASPIRIN 325 MG TAB PO STA (10:22)
[2018-12-17] MEDS ORDERED: SODIUM CHLORIDE 0.9% 1,000 ML IV STA (10:22)
--- NOTE | 2018-12-17 10:25 | ED ---
General Adult HPI - General Chief complaint: Neuro Symptoms/Deficit Stated complaint: poss stroke Time Seen by Provider: 12/17/18 10:10 Source: patient, RN notes reviewed, old records reviewed Mode of arrival: wheelchair Limitations: no limitations - History of Present Illness Initial comments: Patient is a 68-year-old male presents emergency department today for evaluation for intermittent facial tingling and numbness for the past 2 weeks. Patient r eports he's had 2 significant episodes where it lasted for quite a few hours and then slowly diminishes. Patient states that he noticed a few days ago of worsening facial numbness, and minor left-sided facial droop. Patient states this had no headache or other symptoms associated with this. Patient denies any nausea or vomiting, fevers or chills,. He's had a history of TIAs in the past. Patient states that he has taken his Plavix today, but is typically better is poor at remembering to take his medications. Patient states that he has had no other significant symptoms at this time. Denies any upper or lower extremity weakness. 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 - Related Data Home Medications Medication Instructions Recorded Confirmed Atenolol [Tenormin] 25 mg PO DAILY 03/24/15 12/17/18 Isosorbide Mononitrate [Isosorbide 30 mg PO DAILY 03/24/15 12/17/18 Mononitrate ER] Lisinopril [Zestril] 5 mg PO DAILY 03/24/15 12/17/18 Spironolactone [Aldactone] 25 mg PO DAILY 03/24/15 12/17/18 Budesonide/Formoterol Fumarate 2 puff INHALATION RT-BID PRN 05/10/17 12/17/18 [Symbicort 160-4.5 Mcg Inhaler] Furosemide [Lasix] 40 mg PO DAILY 05/10/17 12/17/18 Nitroglycerin Sl Tabs [Nitrostat] 0.4 mg SUBLINGUAL Q5M PRN 05/10/17 12/17/18 Previous Rx's Medication Instructions Recorded Clopidogrel [Plavix] 75 mg PO DAILY #90 tab 09/28/17 Allergies Allergy/AdvReac Type Severity Reaction Status Date / Time No Known Allergies Allergy Verified 12/17/18 10:29 Review of Systems ROS Statement: Those systems with pertinent positive or pertinent negative responses have been documented in the HPI. ROS Other: All systems not noted in ROS Statement are negative. Past Medical History Past Medical History: Coronary Artery Disease (CAD), Cancer, Chest Pain / Angina, COPD, CVA/TIA, Hyperlipidemia, Hypertension, Myocardial Infarction (MO), Sleep Apnea/CPAP/BIPAP Additional Past Medical History / Comment(s): sutures-lt side of scalp for recent skin CA removal,pt is rt side dominant. hx of :basal skin cancer, tia, kidney stones, 02 1 L with cpap at nighttime (rarely uses) "i have an AAA-not sure of size",vertigo. HAD A SHINGLE VACCINE in 2013; 11/01/17 left fem popliteal artherecotmy with Dr. Montoya Last Myocardial Infarction Date:: 2010 History of Any Multi-Drug Resistant Organisms: None Reported Past Surgical History: Back Surgery, Heart Catheterization With Stent, Hernia Repair Additional Past Surgical History / Comment(s): Lt carotid endarectomy, removal of cancer on face (basal cell) lithotripsy,colonoscopy, rt inguinal hernia, not sure how many cardiac stents he has, cataracts. right lung biopsy. Past Anesthesia/Blood Transfusion Reactions: No Reported Reaction Additional Past Anesthesia/Blood Transfusion Reaction / Comment(s): no hx blood transfusion Date of Last Stent Placement:: 2010 Past Psychological History: Depression Smoking Status: Current some day smoker Past Alcohol Use History: None Reported Past Drug Use History: None Reported - Past Family History Sister(s) Family Medical History: Fibromyalgia Father Family Medical History: Cancer Additional Family Medical History / Comment(s): rectal CA, ddd. "i think he had a hole in his heart" Mother Family Medical History: CVA/TIA, Hyperlipidemia Additional Family Medical History / Comment(s): CVA at age 40 General Exam - General Exam Comments Initial Comments: 68-year-old male. Alert and oriented. No distress. Limitations: no limitations General appearance: alert, in no apparent distress Head exam: Present: atraumatic, normocephalic, normal inspection Eye exam: Present: normal appearance, PERRL, EOMI. Absent: scleral icterus, conjunctival injection, periorbital swelling ENT exam: Present: normal exam, mucous membranes moist Neck exam: Present: normal inspection. Absent: tenderness, meningismus, lymphadenopathy Respiratory exam: Present: normal lung sounds bilaterally. Absent: respiratory distress, wheezes, rales, rhonchi, stridor Cardiovascular Exam: Present: regular rate, normal rhythm, normal heart sounds. Absent: systolic murmur, diastolic murmur, rubs, gallop, clicks GI/Abdominal exam: Present: soft, normal bowel sounds. Absent: distended, tenderness, guarding, rebound, rigid Extremities exam: Present: normal inspection, full ROM, normal capillary refill. Absent: tenderness, pedal edema, joint swelling, calf tenderness Back exam: Present: normal inspection Neurological exam: Present: alert, oriented X3, CN II-XII intact Expanded Patient oriented to: Present: person, place, time Speech: Present: fluid speech Cranial nerves: EOM's Intact: Normal, Facial Sensation: Abnormal Left (Sofía reports abnormal sensation over left side of face. No significant paralysis noted ), Facial Palsy with Forehead Movement: Normal Cerebellar function: Finger to Nose: Normal Upper motor neuron: Pronator Drift: Normal Sensory exam: Upper Extremity Light Touch: Normal, Lower Extremity Light Touch: Normal Motor strength exam: RUE: 5, LUE: 5, RLE: 5, LLE: 5 Eye Response: (4) open spontaneously Motor Response: (6) obeys commands Verbal Response: (5) oriented [place] Total: 15 Psychiatric exam: Present: normal affect, normal mood Skin exam: Present: warm, dry, intact, normal color. Absent: rash Course Vital Signs 12/17/18 12/17/18 12/17/18 10:04 11:30 11:45 Temperature 97.8 F Pulse Rate 72 66 64 Respiratory 18 18 18 Rate Blood Pressure 121/79 123/96 130/88 O2 Sat by Pulse 97 98 98 Oximetry 12/17/18 12/17/18 12/17/18 12:00 12:15 12:45 Temperature Pulse Rate 73 60 59 L Respiratory 18 18 18 Rate Blood Pressure 130/88 140/94 133/93 O2 Sat by Pulse 95 95 96 Oximetry - Reevaluation(s) Reevaluation #1: 12/17/18 13:12 Patient from there is no neurology coverage at this time, Patient requested transfer to [facility]. Medical Decision Making - Medical Decision Making Patient is a 68-year-old male with history of 2 weeks of intermittent left-sided facial tingling and numbness. He reports he's had a prolonged episode today, also concern few days ago for some left-sided facial weakness. He is a smoker, noncompliant with his medications. Patient vital signs are stable emergency department. On exam he does have an NIH scale of 1 at this time for diminished sensation over the left side of his face. No significant paralysis is noted. CT of the brain shows evidence of chronic migraine angiopathy, recommended possible MRI of benefit. Patient will be transferred to [facility] for neurology evaluation. Patient's case discussed with Dr. Salazar who agrees to accept the transfer. - Lab Data Result diagrams: 12/17/18 10:54 12/17/18 10:54 Lab Results 12/17/18 12/17/18 12/17/18 Range/Units 10:54 10:54 10:54 WBC 7.0 (3.8-10.6) k/uL RBC 5.65 (4.30-5.90) m/uL Hgb 14.7 (13.0-17.5) gm/dL Hct 47.3 (39.0-53.0) % MCV 83.8 (80.0-100.0) fL MCH 26.0 (25.0-35.0) pg MCHC 31.1 (31.0-37.0) g/dL RDW 15.0 (11.5-15.5) % Plt Count 269 (150-450) k/uL Neutrophils % 65 % Lymphocytes % 24 % Monocytes % 6 % Eosinophils % 2 % Basophils % 1 % Neutrophils # 4.5 (1.3-7.7) k/uL Lymphocytes # 1.7 (1.0-4.8) k/uL Monocytes # 0.4 (0-1.0) k/uL Eosinophils # 0.2 (0-0.7) k/uL Basophils # 0.0 (0-0.2) k/uL Hypochromasia Slight PT 11.0 (9.0-12.0) sec INR 1.0 (<1.2) APTT 26.7 (22.0-30.0) sec Sodium 140 (137-145) mmol/L Potassium 4.7 (3.5-5.1) mmol/L Chloride 105 (98-107) mmol/L Carbon Dioxide 27 (22-30) mmol/L Anion Gap 8 mmol/L BUN 12 (9-20) mg/dL Creatinine 0.82 (0.66-1.25) mg/dL Est GFR (CKD-EPI)AfAm >90 (>60 ml/min/1.73 sqM) Est GFR (CKD-EPI)NonAf >90 (>60 ml/min/1.73 sqM) Glucose 88 (74-99) mg/dL Calcium 9.4 (8.4-10.2) mg/dL Total Bilirubin 0.8 (0.2-1.3) mg/dL AST 43 (17-59) U/L ALT 30 (21-72) U/L Alkaline Phosphatase 75 (38-126) U/L Troponin I (0.000-0.034) ng/mL Total Protein 8.7 H (6.3-8.2) g/dL Albumin 4.2 (3.5-5.0) g/dL 12/17/18 Range/Units 10:54 WBC (3.8-10.6) k/uL RBC (4.30-5.90) m/uL Hgb (13.0-17.5) gm/dL Hct (39.0-53.0) % MCV (80.0-100.0) fL MCH (25.0-35.0) pg MCHC (31.0-37.0) g/dL RDW (11.5-15.5) % Plt Count (150-450) k/uL Neutrophils % % Lymphocytes % % Monocytes % % Eosinophils % % Basophils % % Neutrophils # (1.3-7.7) k/uL Lymphocytes # (1.0-4.8) k/uL Monocytes # (0-1.0) k/uL Eosinophils # (0-0.7) k/uL Basophils # (0-0.2) k/uL Hypochromasia PT (9.0-12.0) sec INR (<1.2) APTT (22.0-30.0) sec Sodium (137-145) mmol/L Potassium (3.5-5.1) mmol/L Chloride (98-107) mmol/L Carbon Dioxide (22-30) mmol/L Anion Gap mmol/L BUN (9-20) mg/dL Creatinine (0.66-1.25) mg/dL Est GFR (CKD-EPI)AfAm (>60 ml/min/1.73 sqM) Est GFR (CKD-EPI)NonAf (>60 ml/min/1.73 sqM) Glucose (74-99) mg/dL Calcium (8.4-10.2) mg/dL Total Bilirubin (0.2-1.3) mg/dL AST (17-59) U/L ALT (21-72) U/L Alkaline Phosphatase (38-126) U/L Troponin I <0.012 (0.000-0.034) ng/mL Total Protein (6.3-8.2) g/dL Albumin (3.5-5.0) g/dL 12/17/18 11:31 EKG performed at 1102 shows normal sinus rhythm septal infarct age undetermined. Abnormal EKG. Ventricular rate 65 beats were minute. Intervals 164 ms. Episcopal 90 ms. QTC 394/49 ms. No evidence of ST elevation. - Radiology Data Radiology results: report reviewed Chest x-ray shows chronic pulmonary fibrosis, interstitial lung disease and COPD. No acute cardio pulmonic process. No acute intracranial hemorrhage, or midline shift noted. There is diffuse age-related cerebral atrophy and few patchy areas of nonspecific white matter, most calmly on the basis of chronic microangiopathic. Given neuro deficits MRI could be considered. This was read by Dr. Jules. Disposition Clinical Impression: Numbness and tingling of left side of face, History of TIAs, Non-compliant patient, Smoker Disposition: DC/TRNS INTERMEDIATE CARE FAC Condition: Good Is patient prescribed a controlled substance at d/c from ED?: No Referrals: Elaine Ghosh DO [Primary Care Provider] - 1-2 days Time of Disposition: 13:19 - Out of Hospital Transfer - Req. Specs Out of Hospital Transfer - Requested Specifics: Other Emergency Center ([facility])
[2018-12-17 11:14] LABS: Basophils % (A) 1 %; Eosinophils # (A) 0.2 k/uL (0-0.7); Eosinophils % (A) 2 %; HCT 47.3 % (39.0-53.0); HGB 14.7 gm/dL (13.0-17.5); Hypochromasia Slight; Lymphocytes # (A) 1.7 k/uL (1.0-4.8); Lymphocytes % (A) 24 %; MCHC 31.1 g/dL (31.0-37.0); MCV 83.8 fL (80.0-100.0); Mean Platelet Volume 7.7; Monocytes # (A) 0.4 k/uL (0-1.0); Monocytes % (A) 6 %; Neutrophils # (A) 4.5 k/uL (1.3-7.7); Neutrophils % (A) 65 %; Platelet Count 269 k/uL (150-450); RBC 5.65 m/uL (4.30-5.90)
[2018-12-17 11:22] LABS: Partial Thromboplastin Time 26.7 sec (22.0-30.0)
[2018-12-17 11:27] LABS: ALT 30 U/L (21-72); AST 43 U/L (17-59); Albumin 4.2 g/dL (3.5-5.0); Alkaline Phosphatase 75 U/L (38-126); Anion Gap 8 mmol/L; Blood Urea Nitrogen 12 mg/dL (9-20); Calcium 9.4 mg/dL (8.4-10.2); Carbon Dioxide 27 mmol/L (22-30); Chloride 105 mmol/L (98-107); Glucose 88 mg/dL (74-99); Potassium 4.7 mmol/L (3.5-5.1); Sodium 140 mmol/L (137-145); Total Bilirubin 0.8 mg/dL (0.2-1.3); Total Protein 8.7 g/dL (6.3-8.2)
--- NOTE | 2018-12-17 11:33 | CT ---
EXAMINATION TYPE: CT brain wo con DATE OF EXAM: 12/17/2018 COMPARISON: 03/24/2015 HISTORY: Rt facial numbness CT DLP: 1099.4 mGycm Automated exposure control for dose reduction was used. TECHNIQUE: CT scan of the head is performed without contrast. FINDINGS: There is no acute intracranial hemorrhage or midline shift identified. There is diffuse v entricular and sulcal prominence consistent with diffuse age-related cerebral atrophy. There a few a reas of low-attenuation in the periventricular white matter most commonly related to chronic small ve ssel ischemic change. No suspicious extra axial fluid collection is seen. Scant mucosal thickening is seen within the ethmoid and sphenoid sinuses. The globes are intact and the remaining visualized sin uses are clear. IMPRESSION: No acute intracranial hemorrhage or midline shift. There is diffuse age-related cerebra l atrophy and few patchy areas of nonspecific white matter, most commonly on the basis of chronic eden roangiopathy. Given the neuro deficits MRI could be considered.
--- NOTE | 2018-12-17 11:37 | XR ---
EXAMINATION TYPE: XR chest 2V DATE OF EXAM: 12/17/2018 COMPARISON: 06/24/2017 HISTORY: Left-sided facial numbness. Altered mental status. Vertigo. TECHNIQUE: Frontal and lateral views of the chest are obtained. FINDINGS: There is chronic interstitial prominence with a lower lobe predominance suggesting backgro und pulmonary fibrosis. Underlying emphysema is also seen with biapical lucency and flattening of the diaphragms on the lateral view. Cardia mediastinal silhouette is upper limits of normal. Osseous dem ineralization is seen throughout. No pneumothorax or sizable pleural effusion. No new focal consolida tion. Mild multilevel degenerative changes of the spine. IMPRESSION: Chronic changes of pulmonary fibrosis/interstitial lung disease and COPD. No acute cardi opulmonary process.
[2018-12-17 12:51] VITALS: BP 133/93
[2018-12-17 13:46] VITALS: PULSE 67; TEMP 97.6
== END 2018-12-17 14:05 ==
LOC: EC 09:57
DX: R20.0 Anesthesia of skin (principal); R20.2 Paresthesia of skin; I99.9 Unspecified disorder of circulatory system; G43.909 Migraine, unspecified, not intractable, without status migrainosus; I25.10 Atherosclerotic heart disease of native coronary artery without angina pectoris; J44.9 Chronic obstructive pulmonary disease, unspecified; I10 Essential (primary) hypertension; I25.2 Old myocardial infarction; F17.200 Nicotine dependence, unspecified, uncomplicated; G47.30 Sleep apnea, unspecified; Z99.89 Dependence on other enabling machines and devices; Z91.19 Patient's noncompliance with other medical treatment and regimen; Z86.73 Personal history of transient ischemic attack (TIA), and cerebral infarction without residual deficits; Z85.828 Personal history of other malignant neoplasm of skin; Z95.5 Presence of coronary angioplasty implant and graft; Z98.890 Other specified postprocedural states; Z79.899 Other long term (current) drug therapy
CPT/HCPCS: 36415; 70450; 71046; 80053; 84484; 85025; 85610; 85730; 93005; 96360; 99285

== ENCOUNTER 2020-05-12 13:38 | Emergency (ER) | payer MEDICARE, BC ==
[2020-05-12 13:43] VITALS: PULSE 88; RESP 18; TEMP 97.6
[2020-05-12] MEDS ORDERED: KETOROLAC 15 MG/ML 1 ML VIAL IVP STA (13:57)
--- NOTE | 2020-05-12 14:18 | ED ---
Extremity Problem HPI - General Chief complaint: Extremity Problem,Nontraumatic Stated complaint: rt arm pain Time Seen by Provider: 05/12/20 13:45 Source: patient, RN notes reviewed Mode of arrival: ambulatory Limitations: no limitations - History of Present Illness Initial comments: This a 69-year-old male presents emergency Department with chief complaint right shoulder pain. Patient states has been bothersome for last few days states is just a constant ache type pain. He has no exact chest pain or any increasing shortness breath from his normal baseline secondary to emphysema. Patient states that he is just concerned has he is had multiple heart attacks and states that he was thinking it may be related to something to his heart. He has some discomfort with range of motion states is just a constant pain no paresthesias denies any nausea and diarrhea constipation. No fevers or chills. - Related Data Home Medications Medication Instructions Recorded Confirmed Isosorbide Mononitrate [Isosorbide 30 mg PO DAILY 03/24/15 12/17/18 Mononitrate ER] Spironolactone [Aldactone] 25 mg PO DAILY 03/24/15 12/17/18 atenoloL [Tenormin] 25 mg PO DAILY 03/24/15 12/17/18 lisinopriL [Zestril] 5 mg PO DAILY 03/24/15 12/17/18 Budesonide/Formoterol Fumarate 2 puff INHALATION RT-BID PRN 05/10/17 12/17/18 [Symbicort 160-4.5 Mcg Inhaler] Furosemide [Lasix] 40 mg PO DAILY 05/10/17 12/17/18 Nitroglycerin Sl Tabs [Nitrostat] 0.4 mg SUBLINGUAL Q5M PRN 05/10/17 12/17/18 Previous Rx's Medication Instructions Recorded Clopidogrel [Plavix] 75 mg PO DAILY #90 tab 09/28/17 predniSONE 50 mg PO DAILY #5 tab 05/12/20 Allergies Allergy/AdvReac Type Severity Reaction Status Date / Time No Known Allergies Allergy Verified 05/12/20 13:43 Review of Systems ROS Statement: Those systems with pertinent positive or pertinent negative responses have been documented in the HPI. ROS Other: All systems not noted in ROS Statement are negative. Past Medical History Past Medical History: Coronary Artery Disease (CAD), Cancer, Chest Pain / Angina, COPD, CVA/TIA, Hyperlipidemia, Hypertension, Myocardial Infarction (SD), Sleep Apnea/CPAP/BIPAP Additional Past Medical History / Comment(s): sutures-lt side of scalp for recent skin CA removal,pt is rt side dominant. hx of :basal skin cancer, tia, kidney stones, 02 1 L with cpap at nighttime (rarely uses) "i have an AAA-not sure of size",vertigo. HAD A SHINGLE VACCINE in 2013; 11/01/17 left fem popliteal artherecotmy with Dr. Montoya Last Myocardial Infarction Date:: 2010 History of Any Multi-Drug Resistant Organisms: None Reported Past Surgical History: Back Surgery, Heart Catheterization With Stent, Hernia Repair Additional Past Surgical History / Comment(s): Lt carotid endarectomy, removal of cancer on face (basal cell) lithotripsy,colonoscopy, rt inguinal hernia, not sure how many cardiac stents he has, cataracts. right lung biopsy. Past Anesthesia/Blood Transfusion Reactions: No Reported Reaction Additional Past Anesthesia/Blood Transfusion Reaction / Comment(s): no hx blood transfusion Date of Last Stent Placement:: 2010 Past Psychological History: Depression Past Alcohol Use History: None Reported Past Drug Use History: None Reported - Past Family History Sister(s) Family Medical History: Fibromyalgia Father Family Medical History: Cancer Additional Family Medical History / Comment(s): rectal CA, ddd. "i think he had a hole in his heart" Mother Family Medical History: CVA/TIA, Hyperlipidemia Additional Family Medical History / Comment(s): CVA at age 40 General Exam Limitations: no limitations Course Vital Signs 05/12/20 05/12/20 13:39 15:29 Temperature 97.6 F Pulse Rate 88 Respiratory 18 Rate Blood Pressure 194/107 177/99 O2 Sat by Pulse 97 Oximetry Medical Decision Making - Medical Decision Making 69-year-old male present emergency from for right shoulder pain. This is present for last few days worse with movement. Patient is concerned about possible cardiac issues patient was evaluated, EKG and labs unremarkable x-ray shows degenerative changes. Patient will be discharged in stable condition return parameters discussed patient will follow-up with orthopedics. - Lab Data Result diagrams: 05/12/20 14:17 05/12/20 14:17 Lab Results 05/12/20 05/12/20 05/12/20 Range/Units 14:17 14:17 14:17 WBC 7.6 (3.8-10.6) k/uL RBC 5.92 H (4.30-5.90) m/uL Hgb 15.9 (13.0-17.5) gm/dL Hct 50.1 (39.0-53.0) % MCV 84.7 (80.0-100.0) fL MCH 26.9 (25.0-35.0) pg MCHC 31.8 (31.0-37.0) g/dL RDW 14.3 (11.5-15.5) % Plt Count 255 (150-450) k/uL Neutrophils % 67 % Lymphocytes % 23 % Monocytes % 5 % Eosinophils % 2 % Basophils % 1 % Neutrophils # 5.1 (1.3-7.7) k/uL Lymphocytes # 1.7 (1.0-4.8) k/uL Monocytes # 0.4 (0-1.0) k/uL Eosinophils # 0.2 (0-0.7) k/uL Basophils # 0.1 (0-0.2) k/uL Hypochromasia Slight PT 11.0 (9.0-12.0) sec INR 1.1 (<1.2) APTT 25.7 (22.0-30.0) sec Sodium 136 L (137-145) mmol/L Potassium 4.2 (3.5-5.1) mmol/L Chloride 102 (98-107) mmol/L Carbon Dioxide 25 (22-30) mmol/L Anion Gap 9 mmol/L BUN 15 (9-20) mg/dL Creatinine 1.02 (0.66-1.25) mg/dL Est GFR (CKD-EPI)AfAm 86 (>60 ml/min/1.73 sqM) Est GFR (CKD-EPI)NonAf 74 (>60 ml/min/1.73 sqM) Glucose 121 H (74-99) mg/dL Calcium 9.5 (8.4-10.2) mg/dL Magnesium 2.0 (1.6-2.3) mg/dL Total Bilirubin 0.5 (0.2-1.3) mg/dL AST 38 (17-59) U/L ALT 27 (4-49) U/L Alkaline Phosphatase 84 (38-126) U/L Troponin I (0.000-0.034) ng/mL Total Protein 8.5 H (6.3-8.2) g/dL Albumin 4.0 (3.5-5.0) g/dL Lipase 236 (23-300) U/L 05/12/20 Range/Units 14:17 WBC (3.8-10.6) k/uL RBC (4.30-5.90) m/uL Hgb (13.0-17.5) gm/dL Hct (39.0-53.0) % MCV (80.0-100.0) fL MCH (25.0-35.0) pg MCHC (31.0-37.0) g/dL RDW (11.5-15.5) % Plt Count (150-450) k/uL Neutrophils % % Lymphocytes % % Monocytes % % Eosinophils % % Basophils % % Neutrophils # (1.3-7.7) k/uL Lymphocytes # (1.0-4.8) k/uL Monocytes # (0-1.0) k/uL Eosinophils # (0-0.7) k/uL Basophils # (0-0.2) k/uL Hypochromasia PT (9.0-12.0) sec INR (<1.2) APTT (22.0-30.0) sec Sodium (137-145) mmol/L Potassium (3.5-5.1) mmol/L Chloride (98-107) mmol/L Carbon Dioxide (22-30) mmol/L Anion Gap mmol/L BUN (9-20) mg/dL Creatinine (0.66-1.25) mg/dL Est GFR (CKD-EPI)AfAm (>60 ml/min/1.73 sqM) Est GFR (CKD-EPI)NonAf (>60 ml/min/1.73 sqM) Glucose (74-99) mg/dL Calcium (8.4-10.2) mg/dL Magnesium (1.6-2.3) mg/dL Total Bilirubin (0.2-1.3) mg/dL AST (17-59) U/L ALT (4-49) U/L Alkaline Phosphatase (38-126) U/L Troponin I <0.012 (0.000-0.034) ng/mL Total Protein (6.3-8.2) g/dL Albumin (3.5-5.0) g/dL Lipase (23-300) U/L Disposition Clinical Impression: Right shoulder pain, Right shoulder tendinitis Disposition: HOME SELF-CARE Condition: Stable Instructions (If sedation given, give patient instructions): Shoulder Pain (ED) Additional Instructions: Please return to the Emergency Department if symptoms worsen or any other concerns. Prescriptions: predniSONE 50 mg PO DAILY #5 tab Is patient prescribed a controlled substance at d/c from ED?: No Referrals: Elaine Ghosh DO [Primary Care Provider] - 1-2 days Moustapha Hernandez MD [STAFF PHYSICIAN] - 1-2 days Time of Disposition: 15:36
[2020-05-12 14:31] LABS: Basophils # (A) 0.1 k/uL (0-0.2); Basophils % (A) 1 %; Eosinophils # (A) 0.2 k/uL (0-0.7); Eosinophils % (A) 2 %; HCT 50.1 % (39.0-53.0); HGB 15.9 gm/dL (13.0-17.5); Hypochromasia Slight; Lymphocytes # (A) 1.7 k/uL (1.0-4.8); Lymphocytes % (A) 23 %; MCH 26.9 pg (25.0-35.0); MCHC 31.8 g/dL (31.0-37.0); MCV 84.7 fL (80.0-100.0); Mean Platelet Volume 7.7; Monocytes # (A) 0.4 k/uL (0-1.0); Monocytes % (A) 5 %; Neutrophils # (A) 5.1 k/uL (1.3-7.7); Neutrophils % (A) 67 %; Platelet Count 255 k/uL (150-450); RBC 5.92 m/uL (4.30-5.90); RDW 14.3 % (11.5-15.5); WBC 7.6 k/uL (3.8-10.6)
[2020-05-12 14:40] LABS: INR 1.1 (<1.2); Partial Thromboplastin Time 25.7 sec (22.0-30.0)
[2020-05-12 14:46] LABS: Calcium 9.5 mg/dL (8.4-10.2); Potassium 4.2 mmol/L (3.5-5.1); Total Bilirubin 0.5 mg/dL (0.2-1.3); Total Protein 8.5 g/dL (6.3-8.2)
--- NOTE | 2020-05-12 14:52 | XR ---
EXAMINATION TYPE: XR shoulder complete RT DATE OF EXAM: 05/12/2020 CLINICAL HISTORY: Shoulder and arm pain for 3 days. TECHNIQUE: Three views of the right shoulder are obtained. COMPARISON: None. FINDINGS: There is no acute fracture/dislocation evident in the right shoulder. Mild to moderate arlette rowing of the acromioclavicular joint. Prominent spur from the distal acromion extending inferiorly. Finding consistent with type III acromion. Mild to moderate narrowing glenohumeral joint. The visuali zed ribs are intact and unremarkable. IMPRESSION: As above.
--- NOTE | 2020-05-12 14:56 | XR ---
EXAMINATION TYPE: XR chest 2V DATE OF EXAM: 05/12/2020 COMPARISON: Chest x-ray December 17, 2018. CT chest May 17, 2018 HISTORY: Chest pain into right shoulder and arm. TECHNIQUE: Frontal and lateral views of the chest are obtained. FINDINGS: There is chronic reticular interstitial changes bilaterally greatest in the lower lungs re demonstrated. The cardiac silhouette size is stable and within normal limits. Multilevel spurring in the thoracic spine is present. IMPRESSION: Moderate to advanced pulmonary fibrotic changes bilaterally demonstrated. No definitive new acute infiltrate.
[2020-05-12 15:30] VITALS: BP 177/99
[2020-05-12] MEDS ORDERED: ACET/COD 300 MG/30 MG STARTER PACK 6 TAB BTL PO STA (15:36)
== END 2020-05-12 15:47 | disposition home or self-care (01) ==
LOC: EC 13:38
DX: M75.91 Shoulder lesion, unspecified, right shoulder (principal); I25.2 Old myocardial infarction; I25.119 Atherosclerotic heart disease of native coronary artery with unspecified angina pectoris; J44.9 Chronic obstructive pulmonary disease, unspecified; I10 Essential (primary) hypertension; G47.30 Sleep apnea, unspecified; Z79.51 Long term (current) use of inhaled steroids; Z79.899 Other long term (current) drug therapy; Z99.89 Dependence on other enabling machines and devices; Z99.81 Dependence on supplemental oxygen; Z85.828 Personal history of other malignant neoplasm of skin; Z95.5 Presence of coronary angioplasty implant and graft
CPT/HCPCS: 96374; 99284; 36415; 93005; 80053; 83690; 83735; 84484; 85025; 85610; 85730; 73030; 71046; J1885

== ENCOUNTER 2020-07-27 09:21 | Day surgery (SDC) | payer MEDICARE, BC ==
[2020-07-21 10:26] VITALS: BMI 31.9
[~2020-07-27 09:21] MED LIST changes: +ALPRAZolam 0.5 MG TAB PO PRN; +ATORVASTATIN 80 MG TAB PO STA; +NITROGLYCERIN SL TABS 0.4 MG TAB SUBLINGUAL PRN
[2020-07-27] MEDS ORDERED: SODIUM CHLORIDE 0.9% 1,000 ML IV ONE (10:07)
[2020-07-27] MEDS ORDERED: MIDAZOLAM 2 MG/2 ML VIAL IV ONE (10:51)
[2020-07-27 10:54] LABS: Basophils # (A) 0.1 k/uL (0-0.2); Basophils % (A) 1 %; Eosinophils # (A) 0.2 k/uL (0-0.7); Eosinophils % (A) 2 %; HCT 46.3 % (39.0-53.0); Lymphocytes # (A) 2.3 k/uL (1.0-4.8); Lymphocytes % (A) 23 %; MCH 27.4 pg (25.0-35.0); MCHC 32.3 g/dL (31.0-37.0); MCV 84.8 fL (80.0-100.0); Mean Platelet Volume 7.5; Monocytes # (A) 0.9 k/uL (0-1.0); Monocytes % (A) 8 %; Neutrophils # (A) 6.4 k/uL (1.3-7.7); Neutrophils % (A) 64 %; Platelet Count 312 k/uL (150-450); RBC 5.46 m/uL (4.30-5.90); RDW 14.2 % (11.5-15.5); WBC 10.1 k/uL (3.8-10.6)
[2020-07-27] MEDS ORDERED: LIDOCAINE 1% INJ 10MG/ML (20 ML MDV) SQ ONE (10:54)
[2020-07-27] MEDS ORDERED: HYDROmorphone 1 MG/ML 1 ML SYRINGE IVP ONE (10:57)
[2020-07-27] MEDS ORDERED: BIVALIRUDIN 250 MG in SODIUM CHLORIDE 0.9% 50 ML IV ONE (11:15)
[2020-07-27] MEDS ORDERED: BIVALIRUDIN BOLUS 250 MG/50 ML IV ONE (11:15)
[2020-07-27 11:19] LABS: Potassium 4.6 mmol/L (3.5-5.1)
[2020-07-27] MEDS ORDERED: IOPAMIDOL-370 125ML BTL INJ ONE ×2 (11:28)
[2020-07-27] MEDS ORDERED: RX INFO: IV CONTRAST WAS GIVEN 1 EACH MISC MISCELLANE PRN (11:37)
[2020-07-27] MEDS ORDERED: SODIUM CHLORIDE 0.9% 1,000 ML IV SCH (11:45)
[2020-07-27 12:05] VITALS: RESP 16
--- NOTE | 2020-07-27 13:17 | CC ---
CARDIAC CATHETERIZATION REPORT DATE OF SERVICE: July 27, 2020. PERFORMING PHYSICIAN: Gagandeep Montoya MD. PROCEDURE PERFORMED: 1. Selective right and left coronary angiogram. 2. Left heart catheterization. 3. Fractional flow reserve FFR of the LAD. 4. Selective bilateral common femoral arteries angiogram. INDICATION: This is a 69-year-old gentleman with coronary artery disease and prior stenting of the LAD who was seen in the office recently with increasing shortness of breath and was diagnosed with severe cardiomyopathy with EF around 35%. Because of that, a heart catheterization was advised. APPROACH: Right common femoral artery. COMPLICATION: None. LEVEL OF SEDATION: Moderate with sedation length of 40 minutes. PROCEDURE DESCRIPTION: After obtaining informed consent, the patient was brought to cardiac minilab operator. The right common femoral artery was cannulated using micropuncture technique under ultrasound guidance, the micropuncture wire passed easily then I placed a 6-[place] sheath at the right common femoral artery. Selective right and left coronary angiogram performed with JR4 and JL4 catheters. Left heart catheterization was performed using 6-[place] pigtail catheter. After that I did selective right common femoral artery angiogram using the sheath for injection and selective left common femoral artery angiogram after I did go up and over using Rim catheter and Glidewire. The procedure was completed without any complication. SELECTIVE CORONARY ANGIOGRAM: 1. The RCA is a moderate caliber vessel and nondominant vessel with mild to moderate diffuse disease only. 2. The left main is a large caliber vessel. It is angiographically normal. It bifurcates into LCX and LAD. 3. The LCX is a large caliber vessel. It is a dominant vessel. The proximal LCX appeared to have a tight lesion in the range of 70% to 80% involving the proximal portion right after takeoff from the left main and was seen mainly on the AUSTRIAN cranial view. The mid left circumflex and distal left circumflex appeared to have mild diffuse disease only. The left circumflex gives rise into multiple obtuse marginal branches. They appeared to have mild disease only. 4. The LAD: The proximal LAD is stented with severe in-stent restenosis. We did document severe in-stent restenosis using an iFR which came in to be at 0.86. 5. IFR OF THE LAD: After zeroing the Doppler wire and equalizing between the Doppler wire and the guiding catheter, we did an iFR that came into be at 0.86, which is below the ischemic threshold. HEMODYNAMICS: The LVEDP was about 10 to 12 mmHg without significant gradient across the aortic valve. CONCLUSION: Severe triple-vessel coronary artery disease. POSTPROCEDURE MANAGEMENT: PCI of the LAD and left circumflex to be performed with adjunctive use of Impella given the patient's low ejection fraction and dominant left coronary system. MMODL / IJN: [id number] /
[2020-07-27] MEDS ORDERED: HYDROmorphone 0.5 MG/0.5 ML SYRINGE IVP PRN (13:23)
[2020-07-27] MEDS ORDERED: ATROPINE SULFATE 0.1 MG/ML 10ML SYRINGE ONE (13:45)
[2020-07-27 17:16] VITALS: BP 118/56; PULSE 61
[2020-07-27 17:22] VITALS: TEMP 98
--- NOTE | 2020-07-28 13:40 | IR ---
EXAMINATION TYPE: IR angio lower extremity BI DATE OF EXAM: 07/27/2020 COMPARISON: NONE HISTORY: Peripheral vascular occlusive disease Fluoroscopy support supplied to the referring clinician. See dictated report from cardiology, 486 im ages, 9.4 minutes fluoroscopy time supplied
== END 2020-07-27 21:13 | disposition home or self-care (01) ==
LOC: CATHCVL 09:21 → 1SOBS 16:22 → CATHCVL 21:13
PROVIDERS: ATTEND Internal Medicine Interventional Cardiology
DX: I25.10 Atherosclerotic heart disease of native coronary artery without angina pectoris (principal); I42.9 Cardiomyopathy, unspecified; I10 Essential (primary) hypertension; I25.5 Ischemic cardiomyopathy; I25.2 Old myocardial infarction; F17.210 Nicotine dependence, cigarettes, uncomplicated; E78.2 Mixed hyperlipidemia; I70.213 Atherosclerosis of native arteries of extremities with intermittent claudication, bilateral legs; Z79.82 Long term (current) use of aspirin; Z79.02 Long term (current) use of antithrombotics/antiplatelets; Z79.899 Other long term (current) drug therapy; Z86.73 Personal history of transient ischemic attack (TIA), and cerebral infarction without residual deficits; E66.9 Obesity, unspecified; Z68.32 Body mass index [BMI] 32.0-32.9, adult
CPT/HCPCS: 93571; 36245; 93458; 75716; 80048; 85025; C1887; C1769 ×5; C1894; J2250; J2001; J1170 ×2; J0583; Q9967

== ENCOUNTER 2020-08-07 08:26 | Inpatient (IN) | payer MEDICARE, BC ==
[~2020-08-07 08:26] MED LIST changes: +ASPIRIN 325 MG TAB PO ONE; -ASPIRIN 325 MG TAB PO STA; +ATORVASTATIN 80 MG TAB PO ONE; -ATORVASTATIN 80 MG TAB PO STA; +HEPARIN SODIUM,PORCINE 10,000 UNIT in SODIUM CHLORIDE 0.9% 1,000 ML IRRIGATION PRN; +HEPARIN SODIUM,PORCINE 2,500 UNIT in SODIUM CHLORIDE 0.9% 250 ML IRRIGATION PRN; +SODIUM CHLORIDE 0.9% 1,000 ML IV SCH
[2020-08-07] MEDS ORDERED: SODIUM CHLORIDE 0.9% 1,000 ML IV ONE (08:51)
[2020-08-07] MEDS ORDERED: HEPARIN SODIUM 1,000 UN/ML (10ML VL) ONE (10:49)
[2020-08-07] MEDS ORDERED: fentaNYL (PF) 50 MCG/ML 2 ML AMP IV ONE ×3 (11:05→11:57)
[2020-08-07] MEDS ORDERED: MIDAZOLAM 2 MG/2 ML VIAL IV ONE ×2 (11:05→11:32)
[2020-08-07] MEDS ORDERED: LIDOCAINE 1% INJ 10MG/ML (20 ML MDV) SQ ONE (11:06)
[2020-08-07] MEDS ORDERED: fentaNYL (PF) 50 MCG/ML 2 ML AMP ONE (11:07)
[2020-08-07] MEDS ORDERED: HEPARIN SODIUM 1,000 UN/ML (10ML VL) IV ONE (11:23)
[2020-08-07] MEDS ORDERED: NITROGLYCERIN 1000MCG/10ML SYRINGE INTRACORON ONE (12:15)
[2020-08-07] MEDS ORDERED: niCARdipine Syringe (1,000 mcg/10 mL) INTRACORON ONE (12:15)
[2020-08-07] MEDS ORDERED: CLOPIDOGREL 75 MG TAB ONE (12:17)
[2020-08-07] MEDS ORDERED: CLOPIDOGREL 75 MG TAB PO ONE (12:19)
[2020-08-07] MEDS ORDERED: IOPAMIDOL-370 125ML BTL INJ ONE (12:20)
[2020-08-07] MEDS ORDERED: NITROGLYCERIN SL TABS 0.4 MG TAB SUBLINGUAL PRN ×2 (12:44→12:46)
[2020-08-07] MEDS ORDERED: SYMBICORT 160-4.5 MCG INHALER INHALATION PRN (12:44)
[2020-08-07] MEDS ORDERED: ALBUTEROL NEBULIZED 2.5 MG/3 ML INHALATION PRN (12:44)
[2020-08-07] MEDS ORDERED: RX INFO: IV CONTRAST WAS GIVEN 1 EACH MISC MISCELLANE PRN (12:46)
[2020-08-07] MEDS ORDERED: ZOLPIDEM 5 MG TAB PO PRN (12:46)
[2020-08-07] MEDS ORDERED: ATROPINE SULFATE 0.1 MG/ML 10ML SYRINGE IV PRN (12:46)
[2020-08-07] MEDS ORDERED: MAG HYDROX/AL HYDROX/SIMETH 30 ML CUP PO PRN (12:46)
[2020-08-07] MEDS ORDERED: SODIUM CHLORIDE 0.9% 1,000 ML IV SCH (13:00)
--- NOTE | 2020-08-07 13:16 | LTR ---
August 07, 2020 Re: Flaquito Lopez Dear Dr. Ghosh: Mr. Flauqito Lopez underwent successful atherectomy and stenting of the left anterior descending artery with good angiographic results and without any complication. I want to thank you for allowing us to participate in his care and please do not hesitate to call if you have any question or concern. Sincerely, MD MELISSA Gonzales / CHIKIS: [phone] /
[2020-08-07 13:18] LABS: Glucose,Whole Blood 78 mg/dL (75-99)
--- NOTE | 2020-08-07 13:27 | PTCA ---
PERCUTANEOUSTRANS CORORONARY ANGIOGRAPHY PERCUTANEOUS CORONARY INTERVENTION: DATE OF SERVICE: August 07, 2020. PERFORMING PHYSICIAN: Gagandeep Montoya MD. PROCEDURE PERFORMED: 1. Successful placement of Impella in the left ventricle. 2. Atherectomy of the left anterior descending artery using the orbital atherectomy device from [employer]. 3. Successful stenting of the proximal LAD using 3.5 x 28 mm Xience drug-eluting stent with an excellent angiographic result. 4. Selective right common femoral artery angiogram. INDICATION: This is a 69-year-old gentleman who was diagnosed recently with severe cardiomyopathy. He is known to have coronary artery disease and prior stenting of the LAD long time ago. He underwent a heart catheterization and that revealed severe disease involving the LAD, which was proven using FFR and also severe disease involving the left circumflex coronary artery. He was brought today to undergo an intervention on the LAD with adjunctive use of Impella. APPROACH: Right common femoral artery and left common femoral artery. COMPLICATION: None. LEVEL OF SEDATION: Moderate with sedation length of 80 minutes. PROCEDURE DESCRIPTION: After obtaining an informed consent, the patient was brought to the cardiac laborer [place]. The right and left common femoral arteries were cannulated using micropuncture technique under ultrasound guidance, the micropuncture wire passed easily then I placed two 6-Cypriot sheath in the right common femoral arteries. Anticoagulation was initiated using heparin and the patient was given a weight based heparin with continuous ACT monitoring throughout the procedure. After that, I did upgrade my right groin 6-Cypriot sheath into 13-Cypriot sheath using 8 and 10-Cypriot dilator, and using a 0.035 stiff Glidewire. I placed a 13-Cypriot sheath at the right common femoral artery over 0.035 stiff Glidewire. After that I crossed the left ventricle using a 5-Cypriot pigtail catheter over a 0.035 regular wire. Then I did exchange my 0.035 regular wire into 0.018 wire using the 5- Cypriot pigtail catheter. After that, I did advance the Impella over the 0.018 wire to the left ventricle where the Impella was turned on at that point. I did engage the left main using an XP35 guide. I did wire the LAD using the ViperWire. I did atherectomy of the LAD using the orbital atherectomy device with 2 low-speed and 1 high speed. After that balloon angioplasty was achieved using 3.5 x 15 mm balloon. After that I deployed a 3.5 x 28 mm stent where the stent was positioned under fluoroscopy guidance and deployed at 16 atmospheres for 20 seconds with a post dilated stent using initially 3.0 and then 3.5 balloon and both were noncompliant. The final angiogram showed good angiographic results and the procedure at that point was completed without any complication. After that I did place one Perclose in the right groin and I placed a 5-Cypriot sheath there. I did after that selective right common femoral artery angiogram. POSTPROCEDURE MANAGEMENT: 1. Dual anti-platelet therapy. 2. PCI of the left circumflex. 3. Follow up with the patient. MMODL / IJN: [id number] /
[2020-08-07 13:51] VITALS: BMI 31.8
[2020-08-07] MEDS: fentaNYL (PF) 50 MCG/ML 2 ML AMP IVP PRN ×3 (14:57→23:57)
[2020-08-08 04:52] LABS: Basophils % (A) 0 %; Eosinophils # (A) 0.2 k/uL (0-0.7); Eosinophils % (A) 3 %; HCT 44.9 % (39.0-53.0); HGB 13.9 gm/dL (13.0-17.5); Hypochromasia Slight; Lymphocytes # (A) 1.7 k/uL (1.0-4.8); Lymphocytes % (A) 21 %; MCH 26.7 pg (25.0-35.0); MCV 86.2 fL (80.0-100.0); Mean Platelet Volume 7.8; Monocytes # (A) 0.5 k/uL (0-1.0); Monocytes % (A) 6 %; Neutrophils # (A) 5.5 k/uL (1.3-7.7); Neutrophils % (A) 69 %; Platelet Count 308 k/uL (150-450); RBC 5.21 m/uL (4.30-5.90); RDW 13.7 % (11.5-15.5)
[2020-08-08 05:09] LABS: Calcium 9.2 mg/dL (8.4-10.2)
[2020-08-08 05:10] LABS: Potassium 4.6 mmol/L (3.5-5.1)
[2020-08-08] MEDS: SPIRONOLACTONE 25 MG TAB PO SCH (08:44)
[2020-08-08] MEDS: ASPIRIN 325 MG TAB PO SCH (08:44)
[2020-08-08] MEDS: ATORVASTATIN 80 MG TAB PO SCH (08:45)
[2020-08-08] MEDS: CLOPIDOGREL 75 MG TAB PO SCH (08:45)
[2020-08-08] MEDS ORDERED: lisinopriL 5 MG TAB PO SCH (09:00)
[2020-08-08] MEDS ORDERED: ISOSORBIDE MONONITRATE ER 30 MG TAB.ER.24H PO SCH (09:00)
[2020-08-08] MEDS ORDERED: atenoloL 25 MG TAB PO SCH (09:00)
[2020-08-08] MEDS ORDERED: FUROSEMIDE 40 MG TAB PO SCH (09:00)
[2020-08-08 17:57] LABS: HCT 39.1 % (39.0-53.0); HGB 12.7 gm/dL (13.0-17.5); MCH 27.4 pg (25.0-35.0); MCHC 32.5 g/dL (31.0-37.0); MCV 84.3 fL (80.0-100.0); Mean Platelet Volume 7.5; Platelet Count 296 k/uL (150-450); RBC 4.64 m/uL (4.30-5.90); RDW 13.6 % (11.5-15.5); WBC 9.9 k/uL (3.8-10.6)
[2020-08-09 04:00] LABS: HCT 43.2 % (39.0-53.0); HGB 13.2 gm/dL (13.0-17.5); Hypochromasia Slight; MCH 26.4 pg (25.0-35.0); MCHC 30.5 g/dL (31.0-37.0); MCV 86.7 fL (80.0-100.0); Platelet Count 314 k/uL (150-450); RBC 4.99 m/uL (4.30-5.90); RDW 13.8 % (11.5-15.5); WBC 9.8 k/uL (3.8-10.6)
[2020-08-09 04:11] LABS: Calcium 9.2 mg/dL (8.4-10.2); Potassium 4.2 mmol/L (3.5-5.1)
[2020-08-09 05:16] VITALS: TEMP 97.9
[2020-08-09] MEDS: ATORVASTATIN 80 MG TAB PO SCH (08:12)
[2020-08-09] MEDS: SPIRONOLACTONE 25 MG TAB PO SCH (08:12)
[2020-08-09] MEDS: CLOPIDOGREL 75 MG TAB PO SCH (08:12)
[2020-08-09] MEDS: ASPIRIN 325 MG TAB PO SCH (08:12)
[2020-08-09 09:13] VITALS: BP 97/62
[2020-08-09 10:24] VITALS: PULSE 48; RESP 15
--- NOTE | 2020-08-09 11:59 | PN ---
PROGRESS NOTE DATE OF THE SERVICE: August 08, 2020. BRIEF HISTORY: This is a 69-year-old gentleman who is known to have coronary artery disease and prior stenting of the left anterior descending artery a long time ago, who was diagnosed recently with severe cardiomyopathy. A heart catheterization was performed and revealed severe in-stent restenosis involving the proximal LAD and also severe disease involving the left circumflex coronary artery. On August 07, he underwent successful atherectomy and stenting of the proximal left anterior descending artery using 3.5 x 28 mm Xience drug-eluting stent with adjunctive use of Impella. The patient was seen on August 08 as a followup. His pressure was marginal as well as his heart rate. He was feeling weak and tired. Because of that, I advise monitoring the patient for 1 more day for the next 24 hours. His blood work was reviewed and was within normal limits. His vitals as I mentioned earlier were marginal with marginally low blood pressure and marginally low heart rate. He is on dual anti-platelet therapy along with high intensity statin. I am going to hold the blood pressure medications and diuretics and continue dual anti- platelet therapy and high intensity statin and continue to monitor the kidney function and electrolytes and hemoglobin and follow up with the patient in the next 24 hours. If he continues to be stable, he is going to be discharged home. Please note that both groins are soft and nontender and without any bruises. MMODL / IJN: [id number] /
--- NOTE | 2020-08-09 13:29 | DS ---
DISCHARGE SUMMARY DATE OF DISCHARGE: August 08, 2020. DATE OF ADMISSION: August 06, 2020. BRIEF HISTORY: This is a pleasant 69-year-old gentleman who underwent 2 days ago successful stenting of the proximal left anterior descending artery with adjunctive use of Impella from the right and left groin. He was seen yesterday and because his vitals were marginal, he was kept overnight for additional 24 hours of monitoring in the intensive care unit. He was seen today. He is feeling better. He is sitting in the chair. He has been up and around. He is going to be discharged on dual anti-platelet therapy along with high intensity statin and we are going to hold the blood pressure medications on him right now and follow up with the patient in the office in a week. MMODL / IJN: [id number] /
== END 2020-08-09 10:26 | disposition home or self-care (01) | DRG 215 ==
LOC: CATHCVL 08:26 → 2SICU 12:23
PROVIDERS: ADMIT Internal Medicine Interventional Cardiology; ATTEND Internal Medicine Interventional Cardiology
PROC: X2C0361 Extirpation of Matter from Coronary Artery, One Artery using Orbital Atherectomy Technology, Percutaneous Approach, New Technology Group 1 (ICD-10-PCS; principal; 2020-08-07 10:30)
PROC: 02HA3RJ Insertion of Short-term External Heart Assist System into Heart, Intraoperative, Percutaneous Approach (ICD-10-PCS; principal; 2020-08-07 10:30)
PROC: 027034Z Dilation of Coronary Artery, One Artery with Drug-eluting Intraluminal Device, Percutaneous Approach (ICD-10-PCS; principal; 2020-08-07 10:30)
PROC: 5A0221D Assistance with Cardiac Output using Impeller Pump, Continuous (ICD-10-PCS; principal; 2020-08-07 10:30)
DX: T82.855A Stenosis of coronary artery stent, initial encounter (principal); I42.9 Cardiomyopathy, unspecified; I25.10 Atherosclerotic heart disease of native coronary artery without angina pectoris; Y83.1 Surgical operation with implant of artificial internal device as the cause of abnormal reaction of the patient, or of later complication, without mention of misadventure at the time of the procedure; Z91.19 Patient's noncompliance with other medical treatment and regimen
CPT/HCPCS: 80048; 85025; 85027

== ENCOUNTER 2020-09-02 08:53 | Day surgery (SDC) | payer MEDICARE, BC ==
[~2020-09-02 08:53] MED LIST changes: -ASPIRIN 325 MG TAB PO ONE; +ASPIRIN 325 MG TAB PO STA; -ATORVASTATIN 80 MG TAB PO ONE; +ATORVASTATIN 80 MG TAB PO STA; -SODIUM CHLORIDE 0.9% 1,000 ML IV SCH
[2020-09-02] MEDS ORDERED: SODIUM CHLORIDE 0.9% 1,000 ML IV ONE (09:52)
[2020-09-02 09:53] LABS: Basophils # (A) 0.1 k/uL (0-0.2); Basophils % (A) 1 %; Eosinophils # (A) 0.3 k/uL (0-0.7); Eosinophils % (A) 4 %; HCT 46.1 % (39.0-53.0); HGB 14.7 gm/dL (13.0-17.5); Lymphocytes # (A) 1.9 k/uL (1.0-4.8); Lymphocytes % (A) 25 %; MCH 27.5 pg (25.0-35.0); MCHC 31.9 g/dL (31.0-37.0); MCV 86.2 fL (80.0-100.0); Mean Platelet Volume 7.5; Monocytes # (A) 0.5 k/uL (0-1.0); Monocytes % (A) 6 %; Neutrophils # (A) 4.8 k/uL (1.3-7.7); Neutrophils % (A) 62 %; Platelet Count 264 k/uL (150-450); RBC 5.35 m/uL (4.30-5.90); RDW 14.3 % (11.5-15.5); WBC 7.8 k/uL (3.8-10.6)
[2020-09-02 10:52] LABS: Calcium 9.6 mg/dL (8.4-10.2); Potassium 4.4 mmol/L (3.5-5.1)
[2020-09-02] MEDS: MIDAZOLAM 2 MG/2 ML VIAL IV ONE ×2 (11:35→11:52)
[2020-09-02] MEDS ORDERED: fentaNYL (PF) 50 MCG/ML 2 ML AMP IV ONE (11:35)
[2020-09-02] MEDS ORDERED: LIDOCAINE 1% INJ 10MG/ML (20 ML MDV) SQ ONE (11:36)
[2020-09-02] MEDS ORDERED: BIVALIRUDIN BOLUS 250 MG/50 ML IV ONE (11:40)
[2020-09-02] MEDS ORDERED: BIVALIRUDIN 250 MG in SODIUM CHLORIDE 0.9% 37 ML IV ONE (11:40)
[2020-09-02] MEDS ORDERED: CLOPIDOGREL 75 MG TAB PO ONE (12:14)
[2020-09-02] MEDS ORDERED: NITROGLYCERIN 1000MCG/10ML SYRINGE INTRACORON ONE (12:17)
[2020-09-02] MEDS ORDERED: niCARdipine Syringe (1,000 mcg/10 mL) INTRACORON ONE (12:17)
[2020-09-02] MEDS ORDERED: IOPAMIDOL-370 125ML BTL INJ ONE (12:21)
[2020-09-02] MEDS ORDERED: SYMBICORT 160-4.5 MCG INHALER INHALATION PRN (12:35)
[2020-09-02] MEDS ORDERED: RX INFO: IV CONTRAST WAS GIVEN 1 EACH MISC MISCELLANE PRN (12:35)
[2020-09-02] MEDS ORDERED: ZOLPIDEM 5 MG TAB PO PRN (12:35)
[2020-09-02] MEDS ORDERED: MAG HYDROX/AL HYDROX/SIMETH 30 ML CUP PO PRN (12:35)
[2020-09-02] MEDS ORDERED: ATROPINE SULFATE 0.1 MG/ML 10ML SYRINGE IV PRN (12:35)
[2020-09-02] MEDS ORDERED: NITROGLYCERIN SL TABS 0.4 MG TAB SUBLINGUAL PRN ×2 (12:35)
[2020-09-02] MEDS ORDERED: ALBUTEROL NEBULIZED 2.5 MG/3 ML INHALATION PRN (12:35)
[2020-09-02] MEDS ORDERED: SODIUM CHLORIDE 0.9% 1,000 ML IV SCH (12:45)
[2020-09-02] MEDS: HYDROmorphone 0.5 MG/0.5 ML SYRINGE IVP PRN ×2 (12:52→16:14)
--- NOTE | 2020-09-02 13:17 | PTCA ---
PERCUTANEOUSTRANS CORORONARY ANGIOGRAPHY DATE OF SERVICE: 09/02/2020 PERFORMING PHYSICIAN: Gagandeep Montoya MD. PROCEDURE PERFORMED: 1. Atherectomy of the left circumflex coronary artery using the orbital atherectomy device from [employer]. 2. Successful stenting of the mid left circumflex using 3.5 x 18 mm Xience drug- eluting stent with an excellent angiographic result. 3. Successful stenting of the proximal left circumflex using 3.5 x 12 mm Xience drug- eluting stent with an excellent angiographic result. 4. Selective right common femoral artery angiogram. INDICATION: This is a pleasant 69-year-old gentleman who was diagnosed recently with severe cardiomyopathy and underwent a heart catheterization which revealed severe 2 vessel CAD involving the LAD and left circumflex. The patient underwent successful stenting of the LAD and he was brought today to undergo stenting of the left circumflex. APPROACH: Right common femoral artery. COMPLICATION: None. LEVEL OF SEDATION: Moderate with sedation length of 45 minutes. PROCEDURE DESCRIPTION: After obtaining an informed consent, the patient was brought to cardiac lab rep. The right common femoral artery was cannulated using micropuncture technique and a micropuncture wire passed easily then I placed a 6-Latvian sheath at the right common femoral artery. Anticoagulation was initiated using Angiomax. Subsequently, I did engage the left main using an XP35 guide. I did wire the left circumflex using the ViperWire. Atherectomy of the left circumflex was performed using the orbital atherectomy device from [employer] under 3 times with low speed and 1 time with high speed. After that, stenting of the mid left circumflex was performed using 3.5 x 18 and stenting of the proximal left circumflex was performed using 3.5 x 12 mm stent. Both the stents were deployed under its nominal pressure. The final angiogram showed excellent angiographic results and the procedure was completed without any complication. POSTPROCEDURE MANAGEMENT: 1. Dual anti-platelet therapy. 2. Risk factor modifications. 3. Follow up with the patient. MMODL / IJN: [id number] /
[2020-09-02 13:43] VITALS: RESP 16
[2020-09-03 03:20] VITALS: TEMP 97.5
[2020-09-03 07:17] VITALS: BP 99/59; PULSE 53
--- NOTE | 2020-09-03 08:19 | P.DS ---
Providers Date of admission: September 02 Attending physician: Gagandeep Montoya Consults: 09/02/20 12:35 Consult Physician Routine Consulting Provider: [facility] Consult Reason/Comments: Post Interventional patient Do you want consulting provider notified?: Already Contacted Primary care physician: Elaine Ghosh [facility] Course: The this is a 69-year-old gentleman who underwent yesterday an atherectomy and stenting of the left circumflex coronary artery. He was seen this morning. The right groin is soft and nontender and without any bruises. The patient's going to be discharged home on dual antiplatelet therapy along with high intensity statin. We are holding beta jacy because of the marginal blood pressure. Plan - Discharge Summary Discharge Rx Participant: No New Discharge Prescriptions: Continue Nitroglycerin Sl Tabs [Nitrostat] 0.4 mg SUBLINGUAL Q5M PRN PRN Reason: Chest Pain Clopidogrel [Plavix] 75 mg PO DAILY #90 tab Atorvastatin [Lipitor] 80 mg PO DAILY Albuterol Nebulized [Ventolin Nebulized] 2.5 mg INHALATION Q4H PRN PRN Reason: Shortness Of Breath Symbicort 2 puff INHALATION BID PRN PRN Reason: Shortness Of Breath Aspirin 325 mg PO DAILY #90 tab Discharge Medication List Nitroglycerin Sl Tabs [Nitrostat] 0.4 mg SUBLINGUAL Q5M PRN 05/10/17 [History] Clopidogrel [Plavix] 75 mg PO DAILY #90 tab 09/28/17 [Rx] Atorvastatin [Lipitor] 80 mg PO DAILY 05/12/20 [History] Albuterol Nebulized [Ventolin Nebulized] 2.5 mg INHALATION Q4H PRN 07/21/20 [History] Symbicort 2 puff INHALATION BID PRN 07/21/20 [History] Aspirin 325 mg PO DAILY #90 tab 08/08/20 [Rx] Follow up Appointment(s)/Referral(s): Gagandeep Montoya MD [STAFF PHYSICIAN] - 1 Week
[2020-09-03] MEDS ORDERED: CLOPIDOGREL 75 MG TAB PO SCH (09:00)
[2020-09-03] MEDS ORDERED: ATORVASTATIN 80 MG TAB PO SCH (09:00)
[2020-09-03] MEDS ORDERED: ASPIRIN 325 MG TAB PO SCH (09:00)
[2020-09-03 13:01] LABS: Basophils % (A) 1 %; Eosinophils # (A) 0.4 k/uL (0-0.7); Eosinophils % (A) 6 %; HCT 45.8 % (39.0-53.0); HGB 14.4 gm/dL (13.0-17.5); Hypochromasia Slight; Lymphocytes # (A) 1.7 k/uL (1.0-4.8); Lymphocytes % (A) 25 %; MCH 27.1 pg (25.0-35.0); MCHC 31.4 g/dL (31.0-37.0); MCV 86.1 fL (80.0-100.0); Mean Platelet Volume 7.9; Monocytes # (A) 0.4 k/uL (0-1.0); Monocytes % (A) 5 %; Neutrophils # (A) 4.2 k/uL (1.3-7.7); Neutrophils % (A) 62 %; Platelet Count 249 k/uL (150-450); RBC 5.31 m/uL (4.30-5.90); RDW 14.3 % (11.5-15.5); WBC 6.8 k/uL (3.8-10.6)
[2020-09-03 13:22] VITALS: BMI 31.6
[2020-09-03 13:28] LABS: Anion Gap 10 mmol/L; Blood Urea Nitrogen 18 mg/dL (9-20); Carbon Dioxide 25 mmol/L (22-30); Chloride 102 mmol/L (98-107); Glucose 134 mg/dL (74-99); Potassium 4.6 mmol/L (3.5-5.1); Sodium 137 mmol/L (137-145)
[2020-09-03 13:29] LABS: African American GFR (CKD) 83 (>60 ml/min/1.73 sqM); Calcium 9.6 mg/dL (8.4-10.2); Non-African American GFR(CKD) 72 (>60 ml/min/1.73 sqM)
[2020-09-03 16:36] LABS: African American GFR (CKD) 78.4 (60.0-200.0); Anion Gap 6.3 mmol/L (4.00-12.00); BUN/Creat Ratio 16.36 Ratio (12.00-20.00); Calcium 9.4 mg/dL (8.7-10.3); Carbon Dioxide 26.7 mmol/L (21.6-31.8); Non-African American GFR(CKD) 67.7 (60.0-200.0); Potassium 4.7 mmol/L (3.5-5.5)
[2020-09-03 17:08] LABS: Basophils # (A) 0.06 X 10*3/uL (0.00-0.10); Basophils % (A) 0.9 %; Eosinophils # (A) 0.34 X 10*3/uL (0.04-0.35); Eosinophils % (A) 4.9 %; HCT 44.2 % (39.6-50.0); HGB 13.1 g/dL (13.0-17.0); Lymphocytes # (A) 1.44 X 10*3/uL (0.90-5.00); Lymphocytes % (A) 20.8 %; MCH 26.4 pg (27.0-32.0); MCHC 29.6 g/dL (32.0-37.0); MCV 89.1 fL (80.0-97.0); Mean Platelet Volume 10.8 fL (9.5-12.2); Monocytes # (A) 0.65 X 10*3/uL (0.20-1.00); Monocytes % (A) 9.4 %; Neutrophils # (A) 4.42 X 10*3/uL (1.80-7.70); Neutrophils % (A) 63.7 %; Platelet Count 230 X 10*3/uL (140-440); RBC 4.96 X 10*6/uL (4.40-5.60); WBC 6.93 X 10*3/uL (4.50-10.00)
== END 2020-09-03 13:50 | disposition home or self-care (01) ==
LOC: CATHCVL 08:53 → 6NMEDSUR 12:20 → CATHCVL 09-03 13:50
PROVIDERS: ATTEND Internal Medicine Interventional Cardiology
DX: I25.10 Atherosclerotic heart disease of native coronary artery without angina pectoris (principal); I25.5 Ischemic cardiomyopathy; Z95.5 Presence of coronary angioplasty implant and graft; I10 Essential (primary) hypertension; I25.2 Old myocardial infarction; I70.213 Atherosclerosis of native arteries of extremities with intermittent claudication, bilateral legs; E66.9 Obesity, unspecified; E78.2 Mixed hyperlipidemia; F17.200 Nicotine dependence, unspecified, uncomplicated; Z98.62 Peripheral vascular angioplasty status; Z79.899 Other long term (current) drug therapy; Z79.02 Long term (current) use of antithrombotics/antiplatelets; Z79.82 Long term (current) use of aspirin; Z86.73 Personal history of transient ischemic attack (TIA), and cerebral infarction without residual deficits; Z68.31 Body mass index [BMI] 31.0-31.9, adult
CPT/HCPCS: 94640; 94760; 80048 ×2; 82565; 85025 ×2; C9602; C1725; C1887; C1894; C1769 ×3; C1753; C1724; C1874; J2250; J2001; J3010; J0583; J1170; Q9967

== ENCOUNTER 2020-10-07 06:33 | Day surgery (SDC) | payer MEDICARE, BC ==
[2020-10-05 09:25] VITALS: BMI 30.4
[~2020-10-07 06:33] MED LIST changes: -ALPRAZolam 0.5 MG TAB PO PRN; +ASPIRIN 325 MG TAB PO PRN; -ASPIRIN 325 MG TAB PO STA; -ATORVASTATIN 80 MG TAB PO STA; -HEPARIN SODIUM,PORCINE 10,000 UNIT in SODIUM CHLORIDE 0.9% 1,000 ML IRRIGATION PRN; -HEPARIN SODIUM,PORCINE 2,500 UNIT in SODIUM CHLORIDE 0.9% 250 ML IRRIGATION PRN; -NITROGLYCERIN SL TABS 0.4 MG TAB SUBLINGUAL PRN; -SODIUM CHLORIDE 0.9% 1,000 ML in EMPTY BAG 1 BAG IV ONE
[2020-10-07] MEDS ORDERED: SODIUM CHLORIDE 0.9% 1,000 ML IV ONE (06:48)
[2020-10-07 07:11] VITALS: RESP 16; TEMP 98.1
[2020-10-07 07:19] LABS: Basophils % (A) 0 %; Eosinophils # (A) 0.3 k/uL (0-0.7); Eosinophils % (A) 4 %; HCT 44.7 % (39.0-53.0); HGB 14.9 gm/dL (13.0-17.5); Lymphocytes # (A) 1.7 k/uL (1.0-4.8); Lymphocytes % (A) 24 %; MCHC 33.3 g/dL (31.0-37.0); MCV 84.1 fL (80.0-100.0); Mean Platelet Volume 7.8; Monocytes # (A) 0.5 k/uL (0-1.0); Monocytes % (A) 7 %; Neutrophils # (A) 4.4 k/uL (1.3-7.7); Neutrophils % (A) 63 %; Platelet Count 251 k/uL (150-450); RBC 5.32 m/uL (4.30-5.90); RDW 13.9 % (11.5-15.5); WBC 7.1 k/uL (3.8-10.6)
[2020-10-07 07:35] LABS: Calcium 9.7 mg/dL (8.4-10.2); Potassium 4.4 mmol/L (3.5-5.1)
[2020-10-07] MEDS ORDERED: MIDAZOLAM 2 MG/2 ML VIAL IV ONE (07:55)
[2020-10-07] MEDS ORDERED: LIDOCAINE 1% INJ 10MG/ML (20 ML MDV) SQ ONE (07:58)
[2020-10-07] MEDS ORDERED: IOPAMIDOL-250 100ML BTL INTRAARTER ONE (08:07)
[2020-10-07] MEDS ORDERED: SODIUM CHLORIDE 0.9% 1,000 ML in EMPTY BAG 1 BAG IV SCH (08:30)
--- NOTE | 2020-10-07 09:05 | IR ---
EXAMINATION TYPE: IR angio abdominal w runoff DATE OF EXAM: 10/07/2020 COMPARISON: NONE HISTORY: Fluoroscopy time. Fluoroscopy was provided to the referring clinician.
--- NOTE | 2020-10-07 09:13 | AN ---
ANGIOGRAPHY REPORT DATE OF SERVICE: October 07, 2020. PERFORMING PHYSICIAN: Gagandeep Montoya MD. PROCEDURE PERFORMED: 1. An abdominal aortogram. 2. Bilateral lower extremities runoff. 3. An ultrasound guided access of the right common femoral artery. INDICATION: This is a 69-year-old gentleman with peripheral arterial disease and prior angioplasty of bilateral SFA continues to have bilateral lower extremities intermittent claudication. The intermittent claudication is interfering with his daily activities. Because of that, he was advised to undergo today an abdominal aortogram and bilateral lower extremities runoff. APPROACH: Right common femoral artery. COMPLICATION: None. LEVEL OF SEDATION: Moderate with sedation length of 10 minutes. PROCEDURE DESCRIPTION: After obtaining an informed consent, the patient was brought to the cardiac pharmaceutical laboratory technician. The right common femoral artery was cannulated using micropuncture technique under ultrasound guidance, the micropuncture wire passed easily then I placed a 5-Kittitian sheath there. I did an abdominal aortogram and bilateral lower extremities runoff using 5-Kittitian pigtail catheter which was initially placed at the level of the renal arteries then it was pulled into above the bifurcation of the aorta to right and left common iliac arteries. The procedure was completed without any complication. SELECTIVE PERIPHERAL ANGIOGRAM: 1. The aorta appeared to be angiographically normal. 2. Common Iliac Arteries: Both appear to have mild disease only. 3. Internal Iliac Arteries: Both appear to be patent. 4. External Iliac Arteries: The right external iliac artery appeared to have mild disease only and the left external iliac artery appeared to be stented and the stent is patent. 5. Common Femoral Arteries: Both appeared to have mild disease only. 6. Profunda: Both appeared to be patent. 7. SFA: Both SFA appeared to be occluded, which seems to be in-stent occlusion. 8. Popliteal: Both popliteal appeared to be occluded. 9. Sbbrw-wiz-Mrut: There is one big anterior tibial below the knee on the right side and on the left side there are 3-vessels runoff. CONCLUSION: 1. Mild aortoiliac disease with patent stent in the left external iliac artery. 2. Severe femoropopliteal disease bilaterally with occluded bilateral SFA and bilateral popliteals. 3. One vessel runoff below the knee on the right side and 3-vessels runoff below the knee on the left side. POSTPROCEDURE MANAGEMENT: 1. Discussed with the patient the option between percutaneous versus surgical revascularization. 2. Continue IV hydration for now and discharge in about 5 hours. 3. Follow up with the patient in the office. MMODL / IJN: [id number] /
[2020-10-07 18:36] VITALS: BP 143/80; PULSE 62
== END 2020-10-07 15:05 | disposition home or self-care (01) ==
LOC: CATHCVL 06:33
PROVIDERS: ATTEND Internal Medicine Interventional Cardiology
DX: I70.213 Atherosclerosis of native arteries of extremities with intermittent claudication, bilateral legs (principal); I25.10 Atherosclerotic heart disease of native coronary artery without angina pectoris; I25.2 Old myocardial infarction; E78.2 Mixed hyperlipidemia; Z79.82 Long term (current) use of aspirin; Z79.899 Other long term (current) drug therapy; Z79.02 Long term (current) use of antithrombotics/antiplatelets; F17.210 Nicotine dependence, cigarettes, uncomplicated; Z95.5 Presence of coronary angioplasty implant and graft; Z86.73 Personal history of transient ischemic attack (TIA), and cerebral infarction without residual deficits; I25.5 Ischemic cardiomyopathy
CPT/HCPCS: 36200; 75625; 75716; 80048; 85025; C1769 ×4; C1894; J2250; J2001; Q9966

== ENCOUNTER → 2020-12-11 | Outpatient (CLI) | payer MEDICARE, BC ==
--- NOTE | 2020-12-11 20:14 | US ---
EXAMINATION TYPE: US thyroid st tissue head/neck DATE OF EXAM: 12/11/2020 COMPARISON: NONE CLINICAL HISTORY: R59.1 Lymphadenopathy. Palpable area lateral left neck inferior to ear Left neck: 2 hypoechoic vascular areas measuring 1.8 x 1.2 x 1.8cm and 1.2 x 0.9 x 1.3cm IMPRESSION: Findings consistent with lymphadenopathy at the site of patient's clinical abnormality, limited scan performed
== END | disposition home or self-care (01) ==
LOC: RADUSWWP 14:58
PROVIDERS: ATTEND Surgery
DX: R59.1 Generalized enlarged lymph nodes (principal)
CPT/HCPCS: 76536

== ENCOUNTER → 2021-02-04 | Outpatient (CLI) | payer MEDICARE, BC ==
--- NOTE | 2021-02-04 10:02 | CT ---
EXAMINATION TYPE: CT soft tissue neck w con DATE OF EXAM: 02/04/2021 COMPARISON: None HISTORY: Swelling/mass/lump left side neck CT DLP: 654 mGycm CONTRAST: CT scan of the neck is performed with IV Contrast, patient injected with 100 mL of Isovue 300. Contrast enhanced CT of the neck was performed from the skull base through the lung apices. AIRWAY: The supraglottic, glottic, and subglottic portions of the airway appear patent and free of mass. SALIVARY GLANDS: The submandibular are free of mass or inflammatory process. Noted adjacent to the l ower pole of the left parotid gland are 2 soft tissue nodules measuring 1.5 cm and 1.2 cm respectivel y in short axis. A smaller 8 mm nodule is seen adjacent to the right parotid gland. These are felt to reflect lymph nodes. Lesions of other etiology are not excluded and strict clinical correlation is a dvised. THYROID GLAND: No nodules or masses seen. LYMPH NODES: No adenopathy seen greater than 1cm. LUNG APICES: No nodule or mass is seen. OTHER: Vascular structures are patent. No significant degenerative change of the cervical spine. N o abscess seen. IMPRESSION: Findings suggest probable periparotid lymph nodes. Lesions of other etiology not excluded.
== END | disposition home or self-care (01) ==
LOC: RADCTMAIN 07:53
PROVIDERS: ATTEND Otolaryngology
DX: R22.1 Localized swelling, mass and lump, neck (principal)
CPT/HCPCS: 82565; 84520; 70491; 36415; Q9967

== ENCOUNTER 2021-02-16 12:56 | Day surgery (SDC) | payer MEDICARE, BC ==
[2021-02-16 13:15] VITALS: BP 155/81; PULSE 87; RESP 16
--- NOTE | 2021-02-16 14:37 | US ---
ULTRASOUND GUIDED CORE BIOPSY LEFT NECK MASS: CLINICAL HISTORY: Large left neck mass FINDINGS: The procedure was explained to the patient. The risks, complications, benefits and alternatives were discussed and any questions were answered. Informed consent was obtained. Patient was placed supin e on the ultrasound table and prepped and draped in the usual sterile fashion. Utilizing a 18-gauge core biopsy needle to samples were obtained from the requested large left neck mass Patient was stable throughout the procedure. Pathology is pending. All elements of maximal barrier technique were utilized. IMPRESSION: 1. Successful ultrasound guided biopsy left neck mass.
== END 2021-02-16 14:00 | disposition home or self-care (01) ==
LOC: RADPROMAIN 12:56
PROVIDERS: ATTEND Otolaryngology
DX: R59.0 Localized enlarged lymph nodes (principal)
CPT/HCPCS: 38505; 76942; 88305

== ENCOUNTER 2021-04-07 11:31 | Day surgery (SDC) | payer MEDICARE, BC ==
[2021-04-05 12:51] VITALS: BMI 31.9
[~2021-04-07 11:31] MED LIST changes: +ALPRAZolam 0.5 MG TAB PO PRN; +HEPARIN SODIUM,PORCINE 10,000 UNIT in SODIUM CHLORIDE 0.9% 1,000 ML IRRIGATION PRN; +HEPARIN SODIUM,PORCINE 2,500 UNIT in SODIUM CHLORIDE 0.9% 250 ML IRRIGATION PRN; +SODIUM CHLORIDE 0.9% 1,000 ML in EMPTY BAG 1 BAG IV ONE; +ZOLPIDEM 5 MG TAB PO PRN
[2021-04-07] MEDS ORDERED: SODIUM CHLORIDE 0.9% 1,000 ML IV ONE (12:00)
[2021-04-07 12:09] VITALS: RESP 16
[2021-04-07 12:13] LABS: Basophils # (A) 0.1 k/uL (0-0.2); Basophils % (A) 1 %; Eosinophils # (A) 0.3 k/uL (0-0.7); Eosinophils % (A) 3 %; HCT 47.2 % (39.0-53.0); HGB 15.2 gm/dL (13.0-17.5); Lymphocytes % (A) 25 %; MCH 27.7 pg (25.0-35.0); MCHC 32.1 g/dL (31.0-37.0); MCV 86.3 fL (80.0-100.0); Mean Platelet Volume 8.2; Monocytes # (A) 0.5 k/uL (0-1.0); Monocytes % (A) 6 %; Neutrophils % (A) 63 %; Platelet Count 315 k/uL (150-450); RBC 5.47 m/uL (4.30-5.90); RDW 14.4 % (11.5-15.5); WBC 7.9 k/uL (3.8-10.6)
[2021-04-07 12:27] LABS: Calcium 10.1 mg/dL (8.4-10.2); Potassium 4.7 mmol/L (3.5-5.1)
[2021-04-07] MEDS ORDERED: SODIUM CHLORIDE 0.9% 500 ML 500 ML with niCARdipine 6.25 MG, NITROGLYCERIN-D5W PMX 0.05... IV ONE ×8 (13:00→16:00)
[2021-04-07] MEDS ORDERED: MIDAZOLAM 2 MG/2 ML VIAL IV ONE ×2 (13:30→15:20)
[2021-04-07] MEDS: fentaNYL (PF) 50 MCG/ML 2 ML AMP IV ONE ×2 (13:30→14:18)
[2021-04-07] MEDS ORDERED: LIDOCAINE 1% INJ 10MG/ML (20 ML MDV) SQ ONE (13:33)
[2021-04-07] MEDS ORDERED: HEPARIN SODIUM 1,000 UN/ML (10ML VL) IV ONE (13:39)
[2021-04-07] MEDS: MIDAZOLAM 2 MG/2 ML VIAL IV ONE ×3 (14:23→16:00)
[2021-04-07] MEDS ORDERED: HYDROmorphone 0.5 MG/0.5 ML SYRINGE IVP ONE ×2 (16:00→16:05)
[2021-04-07] MEDS ORDERED: CLOPIDOGREL 75 MG TAB PO ONE (17:15)
[2021-04-07] MEDS ORDERED: HYDROmorphone 1 MG/ML 1 ML SYRINGE IVP ONE (17:15)
[2021-04-07] MEDS ORDERED: IOPAMIDOL-250 100ML BTL IV ONE (17:16)
[2021-04-07] MEDS ORDERED: NITROGLYCERIN SL TABS 0.4 MG TAB SUBLINGUAL PRN (17:22)
[2021-04-07] MEDS ORDERED: SODIUM CHLORIDE 0.9% 1,000 ML in EMPTY BAG 1 BAG IV SCH (17:30)
--- NOTE | 2021-04-07 21:02 | AN ---
ANGIOGRAPHY REPORT DATE OF SERVICE: April 07, 2021. PERFORMING PHYSICIAN: Gagandeep Montoya MD. PROCEDURE PERFORMED: 1. Atherectomy of the left SFA using the orbital atherectomy device and using 1.5 mm paresh. 2. Intravascular ultrasound (IVUS) of the left SFA and left popliteal. 3. Successful stenting of the left SFA proximally as well as in the midportion using proximally Zilver PTX drug-coated stent which was 8 x 80 mm and in the midportion using 6 x 39 mm balloon expandable stent with excellent angiographic results. 4. Balloon angioplasty of the left SFA and left popliteal. 5. Left lower extremity angiogram. 6. Right common femoral artery angiogram. 7. Ultrasound-guided access of the right common femoral artery. INDICATIONS: Limiting intermittent claudication in this 71-year-old gentleman with peripheral arterial disease, known occluded left SFA. APPROACH: Right common femoral artery and left posterior tibial artery. COMPLICATION: None. LEVEL OF SEDATION: Moderate with sedation length of 222 minutes. The procedure was long and complex. PROCEDURE DESCRIPTION: After obtaining an informed consent, the patient was brought to the cardiac laborer orchard. The right common femoral artery was cannulated using micropuncture technique under ultrasound guidance, the micropuncture wire passed easily. Then I placed a 55 cm 6- Maltese Raabe sheath at the right common femoral artery. I did select the left common femoral artery using 0.035 stiff Glidewire with the backup support of 5-Maltese RIM catheter. Subsequently, the long sheath was advanced over the wire and the catheter to the left common femoral artery. At that point, anticoagulation was initiated using heparin with continuous ACT monitoring throughout the procedure. Subsequently, I did selective left common femoral artery angiogram to identify the takeoff of the SFA from the common femoral artery. After multiple attempts using 014 and 018 and 035 wire, I could not cross the STAMPING OPERATOR of the left SFA in antegrade technique. At that point, I decided to access the posterior tibial artery and I placed a slender 5/6-Maltese sheath at the left dorsalis pedis artery and that was performed under ultrasound guidance and after that, I did started continuous infusion of verapamil and heparin and nitroglycerins via the side-arm of the sheath. With a retrograde technique, I was able to cross the STAMPING OPERATOR of the left SFA using 0.035 stiff Glidewire. After that, I did exchange my 035 stiff Glidewire into 014 wire. Intravascular ultrasound showed that I was in the true lumen all the way. The very proximal segment of the left SFA, which is a de Aiden lesion, I decided to atherectomy my I used 1.5 mm paresh and did atherectomy. After that, I did balloon angioplasty of the left SFA using 5 mm and subsequently 6 mm balloon. The SFA angiographically was looking good except for the very mid to distal portion of it. There was a tight area inside the superior stent. I did balloon angioplasty of that segment using 6 mm Chocolate balloon with inadequate angiographic results. At that point, I decided to stent the segment using balloon expandable stent. I placed a 6 x 39 mm balloon expandable stent and the stent was deployed under 30 atmospheres because the lesion was extremely tight and not giving up. Under 30 atmospheres, I was able to open the lesion up. The following angiogram showed excellent angiographic results. I did selective left zlggh-rhp-oses angiogram which showed that the AT was not opacified, but the last time the AT was opacified was in September. I think this is a chronic occlusion more than acute or complication of the procedure. POSTPROCEDURE MANAGEMENT: 1. Dual anti-platelet therapy. 2. Aggressive cholesterol control. 3. Risk factor modifications. 4. Follow up with the patient. MMODL / IJN: [id number] /
[2021-04-07] MEDS ORDERED: ATROPINE SULFATE 0.1 MG/ML 10ML SYRINGE ONE (21:27)
[2021-04-07] MEDS ORDERED: HYDROcodone/APAP 5-325MG 1 EACH TAB PO PRN (23:15)
[2021-04-08] MEDS ORDERED: CLOPIDOGREL 75 MG TAB PO SCH (09:00)
[2021-04-08] MEDS ORDERED: lisinopriL 5 MG TAB PO SCH (09:00)
[2021-04-08] MEDS ORDERED: SPIRONOLACTONE 25 MG TAB PO SCH (09:00)
[2021-04-08] MEDS ORDERED: atenoloL 25 MG TAB PO SCH (09:00)
[2021-04-08] MEDS ORDERED: ASPIRIN 81 MG PO SCH (09:00)
--- NOTE | 2021-04-08 09:28 | IR ---
EXAMINATION TYPE: IR stent intravas non coronary DATE OF EXAM: 04/07/2021 COMPARISON: NONE HISTORY: Fluoroscopy time. Fluoroscopy was provided to the referring clinician.
[2021-04-08 10:00] LABS: Basophils % (A) 0 %; Eosinophils # (A) 0.2 k/uL (0-0.7); Eosinophils % (A) 2 %; Lymphocytes % (A) 10 %; MCH 27.8 pg (25.0-35.0); MCHC 31.8 g/dL (31.0-37.0); MCV 87.3 fL (80.0-100.0); Mean Platelet Volume 8.4; Monocytes # (A) 0.5 k/uL (0-1.0); Monocytes % (A) 5 %; Neutrophils # (A) 7.9 k/uL (1.3-7.7); Neutrophils % (A) 82 %; Platelet Count 272 k/uL (150-450); RBC 5.03 m/uL (4.30-5.90); RDW 14.5 % (11.5-15.5); WBC 9.7 k/uL (3.8-10.6)
[2021-04-08 10:18] VITALS: BP 176/81; PULSE 60; TEMP 98.6
[2021-04-08 10:25] LABS: African American GFR (CKD) >90 (>60 ml/min/1.73 sqM); Anion Gap 7 mmol/L; Blood Urea Nitrogen 15 mg/dL (9-20); Calcium 9.4 mg/dL (8.4-10.2); Carbon Dioxide 26 mmol/L (22-30); Chloride 104 mmol/L (98-107); Glucose 120 mg/dL (74-99); Non-African American GFR(CKD) 86 (>60 ml/min/1.73 sqM); Potassium 4.8 mmol/L (3.5-5.1); Sodium 137 mmol/L (137-145)
--- NOTE | 2021-04-08 10:51 | DS ---
DISCHARGE SUMMARY DATE OF ADMISSION: April 07, 2021 DISCHARGE DATE: April 08, 2021 BRIEF HISTORY: This is a 70-year-old gentleman who underwent yesterday and extensive study and complex procedure to open the left SFA with good angiographic results by the end and without any complication. The patient was seen this morning. He is going to be discharged on dual anti-platelet therapy. He has some issue with taking statin in the past and I will re-address that once I see him in the office. MMNELDA / CHIKIS: [id number] /
== END 2021-04-08 11:05 | disposition home or self-care (01) ==
LOC: CATHCVL 11:31 → 3SCARD 17:23 → CATHCVL 04-08 11:05
PROVIDERS: ATTEND Internal Medicine Interventional Cardiology
DX: I70.213 Atherosclerosis of native arteries of extremities with intermittent claudication, bilateral legs (principal); I65.23 Occlusion and stenosis of bilateral carotid arteries; I10 Essential (primary) hypertension; F17.210 Nicotine dependence, cigarettes, uncomplicated; I08.1 Rheumatic disorders of both mitral and tricuspid valves; I25.10 Atherosclerotic heart disease of native coronary artery without angina pectoris; Z95.5 Presence of coronary angioplasty implant and graft; I25.2 Old myocardial infarction; Z86.73 Personal history of transient ischemic attack (TIA), and cerebral infarction without residual deficits; E78.2 Mixed hyperlipidemia; I25.5 Ischemic cardiomyopathy; Z79.899 Other long term (current) drug therapy; Z79.82 Long term (current) use of aspirin
CPT/HCPCS: 94760; 37227; 37252; 80048 ×2; 85025 ×2; 87635; C1894 ×3; C1769 ×9; C1714; C1876; C1725 ×5; C1887; C1753; C1874; C2623; J2250; J2001; J3010; J1644 ×2; J1170 ×2; Q9966

== ENCOUNTER 2021-12-06 10:48 | Day surgery (SDC) | payer MEDICARE, BC ==
[2021-12-02 15:59] VITALS: BMI 31.9
[~2021-12-06 10:48] MED LIST changes: -ALPRAZolam 0.5 MG TAB PO PRN; -HEPARIN SODIUM,PORCINE 10,000 UNIT in SODIUM CHLORIDE 0.9% 1,000 ML IRRIGATION PRN; -HEPARIN SODIUM,PORCINE 2,500 UNIT in SODIUM CHLORIDE 0.9% 250 ML IRRIGATION PRN; -ZOLPIDEM 5 MG TAB PO PRN
[2021-12-06] MEDS ORDERED: SODIUM CHLORIDE 0.9% 1,000 ML IV ONE (11:06)
[2021-12-06 11:40] LABS: Basophils # (A) 0.1 k/uL (0-0.2); Basophils % (A) 1 %; Eosinophils # (A) 0.3 k/uL (0-0.7); Eosinophils % (A) 4 %; HCT 45.9 % (39.0-53.0); HGB 14.8 gm/dL (13.0-17.5); Hypochromasia Slight; Lymphocytes % (A) 24 %; MCH 28.3 pg (25.0-35.0); MCHC 32.2 g/dL (31.0-37.0); MCV 87.8 fL (80.0-100.0); Mean Platelet Volume 8.3; Monocytes # (A) 0.5 k/uL (0-1.0); Monocytes % (A) 6 %; Neutrophils # (A) 5.3 k/uL (1.3-7.7); Neutrophils % (A) 63 %; Platelet Count 319 k/uL (150-450); RBC 5.23 m/uL (4.30-5.90); RDW 14.2 % (11.5-15.5); WBC 8.5 k/uL (3.8-10.6)
[2021-12-06 11:48] LABS: Calcium 9.4 mg/dL (8.4-10.2); Potassium 4.6 mmol/L (3.5-5.1)
[2021-12-06] MEDS ORDERED: MIDAZOLAM 2 MG/2 ML VIAL IV ONE (12:19)
[2021-12-06] MEDS ORDERED: LIDOCAINE 1% INJ 10MG/ML (5 ML VIAL-PF) SQ ONE (12:21)
[2021-12-06] MEDS ORDERED: FUROSEMIDE 10 MG/ML 4 ML VIAL ONE (12:32)
[2021-12-06] MEDS ORDERED: NALOXONE 0.4 MG/ML 1 ML VIAL IVP PRN (12:36)
[2021-12-06] MEDS ORDERED: IOPAMIDOL-250 100ML BTL INTRAARTER ONE (12:36)
[2021-12-06] MEDS ORDERED: FUROSEMIDE 10 MG/ML 4 ML VIAL IV ONE (12:36)
--- NOTE | 2021-12-06 12:40 | P.PCN ---
Date of Procedure: 12/06/21 Operative Findings: AN ABDOMINAL AORTOGRAM AND BILATERAL LOWER EXTREMITIES RUNOFF PERFORMING PHYSICIAN: Gagandeep Montoya MD PROCEDURE PERFORMED: 1. An abdominal aortogram 2. Bilateral lower extremities runoff INDICATION: Severe bilateral lower extremities discomfort concerning for a critical limb ischemia. An arterial Study was performed and revealed occluded bilateral SFA COMPLICATION: No complication LEVEL OF SEDATION: Moderate was sedation length of 12 minutes APPROACH: Right common femoral artery PROCEDURE DESCRIPTION: After obtaining informed consent and explaining the procedure benefits, risks, and complications, the patient was brought to the cardiac dental laboratory technician apprentice. The right groin was prepped and draped in sterile fashion. The right common femoral artery was cannulated using micropuncture technique, under ultrasound guidance. A micropuncture wire was advanced, and the micropuncture sheath was advanced over the wire, then the micropuncture sheath was exchanged over an 0.35 wire into a 5-Barbadian sheath dilator assembly then the wire and dilator were removed and sheath was flushed. We did an abdominal aortogram and bilateral lower extremities runoff using 5- Barbadian pigtail catheter using a power injection. The catheter was initially placed at the level of the renal arteries, and it was pulled into above the bifurcation of the aorta into right and left common iliac arteries. The procedure was completed and there was no complications. SELECTIVE PERIPHERAL ANGIOGRAM: The abdominal aorta: Is calcified was mild disease only. The common iliac arteries: Are calcified was mild disease only. The external iliac arteries: Are calcified was mild disease only. The internal iliac arteries: Are patent The common femoral arteries: Appears to have mild disease only Superficial femoral arteries: Both SFA are occluded on long segment extending from the ostium all the way to the popliteal Popliteal arteries: Both are occluded Below the knees: The anterior TPL is open on the right side. On the left side the eighth the and peroneal are patent. CONCLUSION: Occluded bilateral SFA Occluded bilateral popliteal
[2021-12-06] MEDS ORDERED: SODIUM CHLORIDE 0.9% 1,000 ML in EMPTY BAG 1 BAG IV SCH (12:45)
--- NOTE | 2021-12-06 13:07 | IR ---
Fluoroscopy HISTORY: Pain in left leg 1.3 minutes fluoroscopy time supplied to the referring clinician. 161 intraoperative C-arm images do cument the procedure. See dictated report from cardiology.
[2021-12-06 14:25] VITALS: TEMP 97.8
[2021-12-06 16:02] VITALS: RESP 14
[2021-12-06] MEDS ORDERED: ACETAMINOPHEN TAB 325 MG TAB PO PRN (16:14)
[2021-12-06 16:56] VITALS: BP 117/74; PULSE 54
== END 2021-12-06 19:58 | disposition home or self-care (01) ==
LOC: CATHCVL 10:48 → 6NMEDSUR 12:32 → CATHCVL 19:58
PROVIDERS: ATTEND Internal Medicine Interventional Cardiology
DX: I70.213 Atherosclerosis of native arteries of extremities with intermittent claudication, bilateral legs (principal); I25.10 Atherosclerotic heart disease of native coronary artery without angina pectoris; I25.5 Ischemic cardiomyopathy; I10 Essential (primary) hypertension; I25.2 Old myocardial infarction; E78.2 Mixed hyperlipidemia; I65.23 Occlusion and stenosis of bilateral carotid arteries; Z20.822 Contact with and (suspected) exposure to COVID-19; Z95.5 Presence of coronary angioplasty implant and graft; Z98.62 Peripheral vascular angioplasty status; Z86.73 Personal history of transient ischemic attack (TIA), and cerebral infarction without residual deficits; Z98.890 Other specified postprocedural states; Z79.02 Long term (current) use of antithrombotics/antiplatelets; Z79.51 Long term (current) use of inhaled steroids; Z79.899 Other long term (current) drug therapy; Z79.82 Long term (current) use of aspirin
CPT/HCPCS: 36200; 75716; 76937; 80048; 85025; 87635; C1769 ×3; J2250; J1940; J2001; Q9966; 75625

== ENCOUNTER → 2022-06-30 | Outpatient (CLI) | payer MEDICARE, BC ==
--- NOTE | 2022-06-30 22:53 | MR ---
EXAMINATION TYPE: MR shoulder RT wo con DATE OF EXAM: 06/30/2022 COMPARISON: None. HISTORY: Right shoulder pain with limited range of motion. TECHNIQUE: Multiplanar, multisequence imaging of the right shoulder is performed without contrast. FINDINGS: Rotator Cuff: Some increased signal distal supraspinatus tendon. Focal insertional tear involving the anterior fibers of the articular surface supraspinatus tendon measures 5 mm sagittal image 23 x 8 mm coronal image 9. Rotator cuff muscle bulk is maintained. Infraspinatus tendon intact. Acromioclavicular Joint: Moderate to severe narrowing with mild spurring. Some mass effect on underly ing fat plane noted. Glenohumeral Joint: Small joint effusion. No significant spurring. Labrum: The superior labrum is markedly blunted/not well seen. No thickening of the middle glenohumer al ligament clearly identified. Biceps Tendon: The long head of biceps is not well identified in normal location within bicipital katerine ove. It could be small caliber normal location axial image 12. It is difficult to demonstrate more pr oximally. Cannot exclude dislocation. Bone marrow signal: No focal abnormal marrow signal is appreciated. Other: No additional significant abnormality is appreciated. IMPRESSION: Complex case with tendinosis and partial tearing of the distal supraspinatus tendon. Ther e is moderate to severe AC joint arthropathy. Suspect underlying impingement. Probable superior elva l tear. Poor visualization of the long head of biceps tendon.
== END | disposition home or self-care (01) ==
LOC: RADMRIMAIN 11:25
PROVIDERS: ATTEND Orthopaedic Surgery
DX: M19.011 Primary osteoarthritis, right shoulder (principal); M75.111 Incomplete rotator cuff tear or rupture of right shoulder, not specified as traumatic

== ENCOUNTER → 2023-07-18 | Outpatient (CLI) | payer MEDICARE, BC ==
[2023-07-18 20:00] LABS: HCT 47.8 % (39.6-50.0); HGB 14.6 g/dL (13.0-17.0); MCH 26.4 pg (27.0-32.0); MCHC 30.5 g/dL (32.0-37.0); MCV 86.6 FL (80.0-97.0); Mean Platelet Volume 10.9 FL (9.5-12.2); NRBC Per 100 WBC 0 X 10*3/uL (0.00-0.01); Platelet Count 307 X 10*3/uL (140-440); RBC 5.52 X 10*6/uL (4.40-5.60); WBC 9.62 X 10*3/uL (4.50-10.00)
[2023-07-18 20:20] LABS: Carbon Dioxide 27.1 mmol/L (21.6-31.8); Chloride 102 mmol/L (96-109); Potassium 4.8 mmol/L (3.5-5.5); Sodium 139 mmol/L (135-145)
== END | disposition home or self-care (01) ==
LOC: LABPAT 13:59
PROVIDERS: ATTEND Internal Medicine Clinical Cardiac Electrophysiology
DX: Z01.812 Encounter for preprocedural laboratory examination (principal); I25.5 Ischemic cardiomyopathy; I47.29 Other ventricular tachycardia
CPT/HCPCS: 36415; 80051; 82565; 84520; 85027

== ENCOUNTER 2023-07-20 10:44 | Day surgery (SDC) | payer MEDICARE, BC ==
[2023-07-18 11:47] VITALS: BMI 29.6
[~2023-07-20 10:44] MED LIST changes: -ALPRAZolam 0.25 MG TAB PO PRN; -ASPIRIN 325 MG TAB PO PRN; +HYDROmorphone 0.5 MG/0.5 ML SYRINGE IVP PRN; +LACTATED RINGERS 1,000 ML IV SCH; +MIDAZOLAM 2 MG/2 ML VIAL IV PRN; +ONDANSETRON 4 MG/2 ML VIAL IVP ONE; -SODIUM CHLORIDE 0.9% 1,000 ML in EMPTY BAG 1 BAG IV ONE; +ceFAZolin 1 GM in SODIUM CHLORIDE 0.9% IRRIG BTL 250 ML IRRIGATION PRN
[2023-07-20] MEDS: SODIUM CHLORIDE 0.9% 1,000 ML IV SCH (11:53)
[2023-07-20] MEDS ORDERED: diphenhydrAMINE 50 MG/ML 1 ML VIAL ONE (15:36)
[2023-07-20] MEDS ORDERED: PROPOFOL 10 MG/ML 20 ML VIAL IV ONE (15:36)
[2023-07-20] MEDS ORDERED: fentaNYL (PF) 50 MCG/ML 2 ML AMP ONE (15:36)
[2023-07-20] MEDS ORDERED: MIDAZOLAM 2 MG/2 ML VIAL ONE (15:36)
[2023-07-20] MEDS ORDERED: LIDOCAINE 1% INJ 10MG/ML (20 ML MDV) ONE ×2 (15:59)
[2023-07-20] MEDS ORDERED: LIDOCAINE 1% INJ 10MG/ML (30 ML VIAL-PF) SQ ONE (16:16)
--- NOTE | 2023-07-20 17:34 | P.EPPROC ---
- EP Procedure Note Electrophysiology Procedure Note: Indication for the procedure Ischemic cardio myopathy Coronary stenting greater than 3-6 months back, nonsustained VT, left ventricular ejection fraction 40% anterior wall infarct Impression Noninducibility of ventricular tachycardia or ventricular fibrillation at EP study on her off Isuprel in this patient with underlying ischemic adenopathy spontaneous nonsustained VT with a left ventricular ejection fraction of 40% with anterior wall infarct status post coronary stenting Normal sinus node function normal AV node function normal AH and HV intervals Details Patient was brought to the EP lab in a fasting state. Written informed consent was obtained prior to the procedure. The sheaths were placed in the right femoral vein and the IVs diagnostic catheters were positioned in the high right atrium, His bundle area right ventricular septum and right ventricular apex Sinus cycle length 1146 ms, TX interval 155 ms, QRS 101 ms and QT 425 ms AH 84 ms and HV 56 ms Sinus recovery times a 600, 504 100 ms were 915 ms 1315 ms and 1164 ms AV node Wenckebach block 370 ms, VA Wenckebach block greater than 600 ms Burst stimulation in the right ventricle is septum performed no VT induced Ventricle extra stimulation after triple extrastimuli from the RV septum No VT induced Burst stimulation and ventricular extra stimulation after triple extrastimuli from the RV apex No VT was induced On Isuprel burst stimulation was performed without induction of any VT Clicks stimulation was performed upper cripple extra stimuli without induction of any VT Catheters were removed and patient was transferred back to telemetry
[2023-07-20] MEDS ORDERED: METOPROLOL SUCCINATE (ER) 25 MG TAB.ER.24H PO STA ×2 (17:36→17:45)
[2023-07-20] MEDS ORDERED: ACETAMINOPHEN TAB 325 MG TAB PO PRN (17:39)
[2023-07-20] MEDS ORDERED: ACETAMINOPHEN IV (For NPO) 1,000 MG in EMPTY BAG 1 BAG IVPB ONE (17:39)
[2023-07-20] MEDS ORDERED: METOPROLOL SUCCINATE (ER) 50 MG TAB.ER.24H PO STA (17:45)
[2023-07-21] MEDS: SODIUM CHLORIDE 0.9% 1,000 ML IV SCH (00:51)
[2023-07-21 08:15] VITALS: BP 121/81; PULSE 57; RESP 17; TEMP 97.6
[2023-07-21] MEDS: METOPROLOL SUCCINATE (ER) 25 MG TAB.ER.24H PO SCH ×2 (08:30→09:48)
[2023-07-21] MEDS ORDERED: ASPIRIN 81 MG PO SCH (09:00)
[2023-07-21] MEDS ORDERED: SPIRONOLACTONE 25 MG TAB PO SCH (09:00)
[2023-07-21] MEDS ORDERED: CLOPIDOGREL 75 MG TAB PO SCH (09:00)
[2023-07-21] MEDS ORDERED: ATORVASTATIN 80 MG TAB PO SCH (09:00)
--- NOTE | 2023-07-21 09:29 | P.DS ---
Providers Date of admission: 07/20/23 Attending physician: Jaden Eubanks Primary care physician: Stated None Hospital Course: The patient is a 72-year-old male with follows in the office with Dr. Montoya. He underwent EP study for nonsustained ventricular tachycardia yesterday with Dr. Eubanks. Unable to induce any ventricular arrhythmia. Patient tolerated procedure well. Interviewed and examined resting comfortably in bed. He denies any chest pain or difficulty breathing. He is comfortable lying flat. He has some mild tenderness at his right groin site but no hematoma or bruit. GENERAL: Well-appearing, well-nourished and in no acute distress. NECK: Supple without JVD or thyromegaly. LUNGS: Breath sounds clear to auscultation bilaterally. Respiration equal and unlabored. No wheezes, rales or rhonchi. HEART: Regular rate and rhythm without murmurs, rubs or gallops. S1 and S2 heard. EXTREMITIES: Normal range of motion, no edema. No clubbing or cyanosis. Peripheral pulses intact and strong. Right groin site is mildly tender but no hematoma or bruit noted. TELEMETRY: Sinus rhythm overnight IMPRESSION: Ischemic cardiomyopathy, EF 40% Coronary artery disease with prior stenting Nonsustained ventricular tachycardia PLAN: Discharge patient on Toprol-XL 100 mg daily Outpatient transition to [facility] Follow-up with primary traffic rate clerk Dr. Landeros in one week I am dictating on behalf of Dr Jaden Eubanks's history/physical and assessment/plan. Plan - Discharge Summary Discharge Rx Participant: No New Discharge Prescriptions: New Metoprolol Succinate (ER) [Toprol XL] 100 mg PO DAILY #90 tab Discontinued Metoprolol Succinate (ER) [Toprol Xl] 50 mg PO DAILY atenoloL [Tenormin] 25 mg PO DAILY No Action Clopidogrel [Plavix] 75 mg PO DAILY #90 tab Atorvastatin Calcium [Lipitor] 80 mg PO DAILY Vit C/E/Zn/Coppr/Lutein/Zeaxan [Preservision Areds 2 Softgel] 1 each PO DAILY Budesonide/Glycopyr/Formoterol [Breztri Aerosphere Inhaler] 1 puff INHALATION DIRECTED Spironolactone 25 mg PO DAILY Aspirin [Adult Low Dose Aspirin EC] 81 mg PO DAILY lisinopriL 2.5 mg PO DAILY Fluticasone/Umeclidin/Vilanter [Trelegy Ellipta 100-62.5-25] 1 inhalation INHALATION DIRECTED Discharge Medication List Clopidogrel [Plavix] 75 mg PO DAILY #90 tab 09/28/17 [Rx] Aspirin [Adult Low Dose Aspirin EC] 81 mg PO DAILY 04/05/21 [History] Spironolactone 25 mg PO DAILY 04/05/21 [History] Atorvastatin Calcium [Lipitor] 80 mg PO DAILY 12/02/21 [History] lisinopriL 2.5 mg PO DAILY 05/30/23 [History] Budesonide/Glycopyr/Formoterol [Breztri Aerosphere Inhaler] 1 puff INHALATION DIRECTED 07/18/23 [History] Fluticasone/Umeclidin/Vilanter [Trelegy Ellipta 100-62.5-25] 1 inhalation INHA LATION DIRECTED 07/18/23 [History] Vit C/E/Zn/Coppr/Lutein/Zeaxan [Preservision Areds 2 Softgel] 1 each PO DAILY 07/18/23 [History] Metoprolol Succinate (ER) [Toprol XL] 100 mg PO DAILY #90 tab 07/20/23 [Rx] Follow up Appointment(s)/Referral(s): Gagandeep Montoya MD [STAFF PHYSICIAN] - 1 Week Activity/Diet/Wound Care/Special Instructions: Post EP study - Ablation instructions 1. Keep access sites dry for 2 days. 2. No heavy lifting or straining for 2 days. 3. Avoid bending the hips repeatedly for 2 days. 4. You may go up and down stairs slowly Call if the following is noted 1. Bleeding, increasing swelling or pain at the access sites. 2. Increasing chest discomfort, especially upon taking a deep breath. 3. Increasing shortness of breath, at rest or with exertion. 4. Undue cough / phlegm 5. Difficulty or pain while swallowing. 6. Pain or change in color in the extremities. 7. Fever, chills, rigors. 8. Increasing headache or neurologic symptoms. 9. Dizziness, fainting, palpitations Increase metoprolol succinate to 100 mg daily Do not take atenolol Continue current medications Discharge Disposition: HOME SELF-CARE
== END 2023-07-21 11:42 | disposition home or self-care (01) ==
LOC: CATHEP 10:44 → 6NMEDSUR 17:29 → CATHEP 07-21 11:42
PROVIDERS: ATTEND Internal Medicine Clinical Cardiac Electrophysiology
DX: I47.20 Ventricular tachycardia, unspecified (principal); I25.10 Atherosclerotic heart disease of native coronary artery without angina pectoris; I25.5 Ischemic cardiomyopathy; Z79.02 Long term (current) use of antithrombotics/antiplatelets; Z79.82 Long term (current) use of aspirin; Z79.899 Other long term (current) drug therapy; Z95.5 Presence of coronary angioplasty implant and graft
CPT/HCPCS: 93623; 93620; 86900; 86901; 86850; C1894; C1769; C1760; C1730 ×2; J2001

== ENCOUNTER → 2023-10-12 | Outpatient (CLI) | payer MEDICARE, BC ==
--- NOTE | 2023-10-12 12:37 | CTL ---
EXAMINATION TYPE: CT Low Dose Lung DATE OF EXAM: 10/12/2023 6:59 AM CLINICAL INDICATION:Male, 72 years old with history of Z12.2 SCREENING LUNG CA F17.210 CURRENT SMOKER ; personal history of nicotine dependence , history of tobacco use. COMPARISON: None. TECHNIQUE: Multiple axial non-contrast scans were obtained from approximately the lung apices through the upper abdomen. Coronal and sagittal reformatted images were obtained. Low dose technique was uti lized. CT DLP: 139.2 mGycm, Automated exposure control for dose reduction was used. CT Contrast: Contrast used: None Oral contrast used: None FINDINGS: ======== Lack of intravenous contrast and low dose technique limits the evaluation of the vascular and soft ti ssue structures. LUNGS: Patchy bilateral fibrosis is seen small, tiny circular pattern. I favor this may represent ear ly end-stage lung changes. No evidence of focal consolidation, pneumothorax or pleural effusion. Nodules: RUL: None. RML: None. RLL: None. DARIEL: None. LLL: None. AIRWAY: Patent and unremarkable. HEART: Size within normal limits. MEDIASTINUM: No gross evidence of adenopathy. VASCULATURE: No aortic aneurysm. MUSCULOSKELETAL: No acute osseous abnormalities SOFT TISSUES/LYMPH NODES: Unremarkable. LOWER NECK: No significant findings. UPPER ABDOMEN: No significant findings. IMPRESSION: 1. No clinically significant pulmonary nodules. CT LUNG RAD AND CT CHEST RECOMMENDATION: Lung-Rad 1 Negative: Continue annual screening with LDCT in 12 months. S Modifier (other clinically significant findings): [id number] sized areas of patchy fibrotic change may represent early end-stage lung disease. Recommend smoking cessation (if current smoker), or continuation of smoking cessation (if prior smoke r). Annual screening for lung cancer with low-dose computed tomography is recommended in adults ages 55 to 77 years who have a 30 pack-year smoking history and currently smoke or have quit within the pa st 15 years. Screening should be discontinued once a person has not smoked for 15 years or develops a health problem that substantially limits life expectancy or the ability or willingness to have curat chito lung surgery.
== END | disposition home or self-care (01) ==
LOC: RADCTMAIN 06:31
PROVIDERS: ATTEND Family Medicine
DX: Z12.2 Encounter for screening for malignant neoplasm of respiratory organs (principal); F17.210 Nicotine dependence, cigarettes, uncomplicated
CPT/HCPCS: 71271

== ENCOUNTER 2023-11-02 07:01 | Day surgery (SDC) | payer MEDICARE, BC ==
[2023-10-31 13:55] VITALS: BMI 31.1
[2023-11-02] MEDS: LACTATED RINGERS 1,000 ML IV ONE (07:16)
[2023-11-02] MEDS ORDERED: LACTATED RINGERS 1,000 ML IV SCH (07:16)
[2023-11-02 07:44] VITALS: TEMP 96.8
[2023-11-02] MEDS ORDERED: PROPOFOL 10 MG/ML 20 ML VIAL IV ONE (08:03)
[2023-11-02] MEDS ORDERED: GLUCAGON 1 MG/ML VIAL ONE (08:03)
--- NOTE | 2023-11-02 08:05 | P.GSHP ---
History of Present Illness H&P Date: 11/02/23 Chief Complaint: screening colonoscopy is a 73-year-old male presents today for screening colonoscopy. Patient denies any significant GI complaints. Past Medical History Past Medical History: Coronary Artery Disease (CAD), Cancer, Chest Pain / Angina, COPD, CVA/TIA, Hyperlipidemia, Hypertension, Myocardial Infarction (MD), Sleep Apnea/CPAP/BIPAP, Vascular Disorder Additional Past Medical History / Comment(s): AAA, Vertigo, basal cell skin cancers, multiple TIA's affected vision, Hx kidney stones, sleep apnea-no machine., See Cardiology H & P Last Myocardial Infarction Date:: 2010 History of Any Multi-Drug Resistant Organisms: None Reported Past Surgical History: Back Surgery, EPS, Heart Catheterization With Stent, Hernia Repair, Orthopedic Surgery, Tonsillectomy Additional Past Surgical History / Comment(s): Lt carotid endarterectomy, skin cancer removal, lithotripsy, colonoscopy, right inguinal hernia, not sure how many cardiac stents he has, bilateral cataracts, right lung biopsy, stents in emerita leg-unsure of how many, left femoral popliteal arthrectomy, right shoulder surg., Back surgery x2. Past Anesthesia/Blood Transfusion Reactions: No Reported Reaction Additional Past Anesthesia/Blood Transfusion Reaction / Comment(s): . Date of Last Stent Placement:: 09/02/2020 Smoking Status: Current every day smoker - Past Family History Sister(s) Family Medical History: Fibromyalgia Father Family Medical History: Cancer Additional Family Medical History / Comment(s): Rectal Cancer, Mother Family Medical History: CVA/TIA Additional Family Medical History / Comment(s): CVA at age 40. Medications and Allergies Home Medications Medication Instructions Recorded Confirmed Type Clopidogrel [Plavix] 75 mg PO DAILY #90 tab 09/28/17 10/31/23 Rx Aspirin [Adult Low Dose Aspirin EC] 81 mg PO DAILY 04/05/21 10/31/23 History Spironolactone 25 mg PO DAILY 04/05/21 10/31/23 History Atorvastatin Calcium [Lipitor] 80 mg PO DAILY 12/02/21 10/31/23 History lisinopriL 2.5 mg PO DAILY 05/30/23 10/31/23 History Metoprolol Succinate (ER) [Toprol 100 mg PO DAILY #90 tab 07/20/23 10/31/23 Rx XL] Allergies Allergy/AdvReac Type Severity Reaction Status Date / Time No Known Allergies Allergy Verified 11/02/23 07:41 Surgical - Exam Vital Signs Temp Pulse Resp BP Pulse Ox 96.8 F L 76 18 118/73 94 L 11/02/23 07:30 11/02/23 07:30 11/02/23 07:30 11/02/23 07:30 11/02/23 07:30 - General well developed, well nourished, no distress - Eyes PERRL - ENT normal pinna - Neck no masses - Respiratory normal expansion - Cardiovascular Rhythm: regular - Abdomen Abdomen: soft, non tender Assessment and Plan Assessment: we'll perform screening colonoscopy.
--- NOTE | 2023-11-02 08:31 | P.OP ---
Date of Procedure: 11/02/23 Preoperative Diagnosis: screening colonoscopy Postoperative Diagnosis: diverticulosis Colon polyps Procedure(s) Performed: colonoscopy Anesthesia: MAC Surgeon: Hussein Mansfield Pathology: other (sigmoid colon polyp, rectal polyp) Condition: stable Disposition: PACU Description of Procedure: the patient's placed on the endoscopy table in the lateral position. He received IV sedation. Digital rectal exam is performed. This revealed no abnormalities. The flexible colonoscope was then placed patient anus passed throughout the entire colon. The ileocecal valve was visualized. The cecum, ascending and transverse colon appeared normal. In the descending andsigmoid colonwas extensive diverticulosis. In the sigmoid colon there is pedunculated polyp polyp. This removed with the snare and hold forcep. Scope was then brought back the rectum another polyp seen this removed with snare. Scope with drawn for patient.
[2023-11-02 09:13] VITALS: BP 126/68; PULSE 64; RESP 17
== END 2023-11-02 09:07 | disposition home or self-care (01) ==
LOC: ORWHC2ENDO 07:01
PROVIDERS: ATTEND Surgery
DX: Z12.11 Encounter for screening for malignant neoplasm of colon (principal); D12.8 Benign neoplasm of rectum; D12.5 Benign neoplasm of sigmoid colon; K57.30 Diverticulosis of large intestine without perforation or abscess without bleeding; I25.10 Atherosclerotic heart disease of native coronary artery without angina pectoris; J44.9 Chronic obstructive pulmonary disease, unspecified; E78.5 Hyperlipidemia, unspecified; I25.2 Old myocardial infarction; G47.33 Obstructive sleep apnea (adult) (pediatric); I10 Essential (primary) hypertension; F17.200 Nicotine dependence, unspecified, uncomplicated; Z86.73 Personal history of transient ischemic attack (TIA), and cerebral infarction without residual deficits; Z90.49 Acquired absence of other specified parts of digestive tract; Z95.5 Presence of coronary angioplasty implant and graft; Z98.890 Other specified postprocedural states; Z98.41 Cataract extraction status, right eye; Z98.42 Cataract extraction status, left eye; Z79.899 Other long term (current) drug therapy; Z80.0 Family history of malignant neoplasm of digestive organs; Z82.3 Family history of stroke; Z79.02 Long term (current) use of antithrombotics/antiplatelets; Z79.82 Long term (current) use of aspirin
CPT/HCPCS: 88305; 45385; J1610; J2704

== ENCOUNTER → 2024-01-23 | Outpatient (CLI) | payer MEDICARE, BC ==
[~2024-01-23] MED LIST changes: -HYDROmorphone 0.5 MG/0.5 ML SYRINGE IVP PRN; -LACTATED RINGERS 1,000 ML IV SCH; -MIDAZOLAM 2 MG/2 ML VIAL IV PRN; -ONDANSETRON 4 MG/2 ML VIAL IVP ONE; +REGADENOSON 0.4 MG/5 ML SYRINGE IV PRN; -ceFAZolin 1 GM in SODIUM CHLORIDE 0.9% IRRIG BTL 250 ML IRRIGATION PRN
--- NOTE | 2024-01-23 13:25 | CA ---
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 Medications: Meds past 24 hrs: Pretest Chest Pain: STRESS TEST Lexiscan Protocol Exercise Duration (min:sec): 01:[address] Depressions (mm): Angina Score: Malcolm Score: Resting HR (bpm): 55 Peak HR (bpm): 94 Resting BP (mmHg): 100 / 52 Peak BP (mmHg): 154 / 103 MPHR: 146 Target HR: 124 % MPHR: 64 METS: 1.0 Total Dose: Peak Dose: Atropine: Double Product: 05489 BP Response: Stress Termination: Infusion complete Stress Symptoms: No chest pain or symptoms Stress Summary: ECG ANALYSIS Resting ECG: Stress ECG: CONCLUSIONS At baseline EKG showed normal sinus rhythm, normal axis, no significant ST or T wave abnormalities. Patient recieved IV infusion of Lexiscan 0.4mg and at peak infusion EKG showed no significant change from baseline. Conclusions: 1. Normal EKG response to Lexiscan infusion 2. Nuclear imaging to be reported separately. Dr. Macho Macias DO (Electronically Signed) Final Date: 23 January 2024 13:24
== END | disposition home or self-care (01) ==
LOC: RADNMMAIN 08:13
PROVIDERS: ATTEND Family Medicine
DX: I20.89 Other forms of angina pectoris (principal); I50.22 Chronic systolic (congestive) heart failure; I25.5 Ischemic cardiomyopathy; R53.83 Other fatigue
CPT/HCPCS: 93017; 78452; A9500; J2785

== ENCOUNTER 2024-06-11 09:16 | Inpatient (IN) | payer MEDICARE, BC ==
[2024-06-11] MEDS: NITROGLYCERIN SL TABS 0.4 MG TAB SUBLINGUAL STA (09:29)
[2024-06-11] MEDS ORDERED: NALOXONE 0.4 MG/ML 1 ML VIAL IV PRN (09:31)
[2024-06-11] MEDS: ASPIRIN 81 MG PO STA (09:34)
[2024-06-11] MEDS: ATORVASTATIN 80 MG TAB PO STA (09:34)
[2024-06-11] MEDS: HEPARIN SODIUM 1,000 UN/ML (10ML VL) IV ONE (09:34)
--- NOTE | 2024-06-11 09:38 | ED ---
General Adult HPI - General Chief complaint: Chest Pain Stated complaint: chest pain Time Seen by Provider: 06/11/24 09:28 Source: patient, RN notes reviewed, old records reviewed Mode of arrival: ambulatory Limitations: no limitations - History of Present Illness Initial comments: 73-year-old male presenting with anterior chest pain which began just prior to arrival. Remote history of CAD. Patient stating that his pain is similar to a previous VA. Associated nausea. - Related Data Home Medications Medication Instructions Recorded Confirmed Aspirin [Adult Low Dose Aspirin EC] 81 mg PO DAILY 04/05/21 10/31/23 Spironolactone 25 mg PO DAILY 04/05/21 10/31/23 Atorvastatin Calcium [Lipitor] 80 mg PO DAILY 12/02/21 10/31/23 lisinopriL 2.5 mg PO DAILY 05/30/23 10/31/23 Previous Rx's Medication Instructions Recorded Clopidogrel [Plavix] 75 mg PO DAILY #90 tab 09/28/17 Metoprolol Succinate (ER) [Toprol 100 mg PO DAILY #90 tab 07/20/23 XL] Allergies Allergy/AdvReac Type Severity Reaction Status Date / Time No Known Allergies Allergy Verified 06/11/24 09:20 Review of Systems ROS Statement: Those systems with pertinent positive or pertinent negative responses have been documented in the HPI. ROS Other: All systems not noted in ROS Statement are negative. Past Medical History Past Medical History: Coronary Artery Disease (CAD), Cancer, Chest Pain / Angina, COPD, CVA/TIA, Hyperlipidemia, Hypertension, Myocardial Infarction (VA), Sleep Apnea/CPAP/BIPAP, Vascular Disorder Additional Past Medical History / Comment(s): AAA, Vertigo, basal cell skin cancers, multiple TIA's affected vision, Hx kidney stones, sleep apnea-no machine., See Cardiology H & P Last Myocardial Infarction Date:: 2010 History of Any Multi-Drug Resistant Organisms: None Reported Past Surgical History: Back Surgery, Heart Catheterization With Stent, Hernia Repair, Orthopedic Surgery, Tonsillectomy Additional Past Surgical History / Comment(s): Lt carotid endarterectomy, skin cancer removal, lithotripsy, colonoscopy, right inguinal hernia, not sure how many cardiac stents he has, bilateral cataracts, right lung biopsy, stents in emerita leg-unsure of how many, left femoral popliteal arthrectomy, right shoulder surg., Back surgery x2. Past Anesthesia/Blood Transfusion Reactions: No Reported Reaction Additional Past Anesthesia/Blood Transfusion Reaction / Comment(s): . Date of Last Stent Placement:: 09/02/2020 Past Psychological History: No Psychological Hx Reported Smoking Status: Current every day smoker Past Alcohol Use History: None Reported Past Drug Use History: None Reported - Past Family History Sister(s) Family Medical History: Fibromyalgia Father Family Medical History: Cancer Additional Family Medical History / Comment(s): Rectal Cancer, Mother Family Medical History: CVA/TIA Additional Family Medical History / Comment(s): CVA at age 40. General Exam Limitations: no limitations General appearance: alert, in no apparent distress Head exam: Present: atraumatic, normocephalic Eye exam: Present: normal appearance, PERRL ENT exam: Present: normal exam Neck exam: Present: normal inspection Respiratory exam: Present: normal lung sounds bilaterally. Absent: respiratory distress, wheezes Cardiovascular Exam: Present: regular rate, normal rhythm GI/Abdominal exam: Present: soft. Absent: distended, tenderness, guarding Extremities exam: Present: normal inspection, normal capillary refill Neurological exam: Present: alert, oriented X3, CN II-XII intact. Absent: motor sensory deficit Psychiatric exam: Present: normal affect, normal mood Skin exam: Present: warm, dry, intact. Absent: cyanosis, diaphoretic Course Vital Signs 06/11/24 06/11/24 06/11/24 09:17 09:29 09:37 Temperature 98 F Pulse Rate 94 99 Respiratory 20 20 Rate Blood Pressure 139/91 182/110 157/104 O2 Sat by Pulse 92 L 98 Oximetry Medical Decision Making - Medical Decision Making Was pt. sent in by a medical professional or institution (, PA, [employer] [employer], urgent care, hospital, or senior care...) When possible be specific @ -No Did you speak to anyone other than the patient for history (EMS, parent, family, police, friend...)? What history was obtained from this source @ -No Did you review nursing and triage notes (agree or disagree)? Why? @ -I reviewed and agree with nursing and triage notes Were old charts reviewed (outside hosp., previous admission, EMS record, old EKG, old radiological studies, urgent care reports/EKG's, senior care records)? Report findings @ -No old charts were reviewed Differential Chest Pain: Stable Angina, Unstable Angina, STEMI, NSTEMI Aortic Dissection, Pneumothorax, Musculoskeletal, Esophageal Spasm GERD, Cholecystitis, Pancreatitis, Zoster, this is not meant to be an all-inclusive list. EKG interpreted by me (3pts min.). @Sinus rhythm with ST segment elevation in the anterior leads with reciprocal change in the inferior consistent with acute VA. Rate of 91, TX interval 175, QRS duration 86, QTc 406 X-rays interpreted by me (1pt min.). @ -Single view chest x-ray ordered, results pending CT interpreted by me (1pt min.). @ -None done U/S interpreted by me (1pt. min.). @ -None done What testing was considered but not performed or refused? (CT, X-rays, U/S, labs)? Why? @ -None What meds were considered but not given or refused? Why? @ -None Did you discuss the management of the patient with other professionals (professionals i.e. , PA, [employer], lab, RT, psych nurse, social media project manager, medical education manager, teacher, job placement officer, disease case manager rn)? Give summary @ -Dr. Yost who is able to see the patient in the emergency department covering for cardiology and Dr. Gale will admit. Was smoking cessation discussed for >3mins.? @ -No Was critical care preformed (if so, how long)? @ -Yes, 35 minutes Were there social determinants of health that impacted care today? How? (Homelessness, low income, unemployed, alcoholism, drug addiction, transportation, low edu. Level, literacy, decrease access to med. care, custodial, rehab)? @ -No Was there de-escalation of care discussed even if they declined (Discuss DNR or withdrawal of care, Hospice)? DNR status @ -No What co-morbidities impacted this encounter? (DM, HTN, Smoking, COPD, CAD, Cancer, CVA, ARF, Chemo, Hep., AIDS, mental health diagnosis, sleep apnea, morbid obesity)? @ -CAD Was patient admitted / discharged? Hospital course, mention meds given and route, prescriptions, significant lab abnormalities, going to OR and other pertinent info. @ -[73-year-old male presenting with chest pain which began just prior to arrival. He has remote history of CAD is uncertain of when his last heart cath was but does believe he has cardiac stents. Patient has ST segment elevation in the anterior leads consistent with acute VA. Helpdesk Administrator is activated and the patient is taken urgently to the Helpdesk Administrator for intervention. He is evaluated by Dr. Yots in the emergency department covering for cardiology. All laboratory testing is pending at the time of this dictation. He is given aspirin, heparin, Lipitor. Undiagnosed new problem with uncertain prognosis? @ -No Drug Therapy requiring intensive monitoring for toxicity (Heparin, Nitro, Insulin, Cardizem)? @ -No Were any procedures done? @ -No Diagnosis/symptom? @ -STEMI Acute, or Chronic, or Acute on Chronic? @ -Acute Uncomplicated (without systemic symptoms) or Complicated (systemic symptoms)? @ -Complicated Side effects of treatment? @ -No Exacerbation, Progression, or Severe Exacerbation? @ -No Poses a threat to life or bodily function? How? (Chest pain, USA, VA, pneumonia, PE, COPD, DKA, ARF, appy, cholecystitis, CVA, Diverticulitis, Homicidal, Suicidal, threat to staff... and all critical care pts) @ -Yes, STEMI, cardiogenic shock, arrhythmia Critical Care Time Critical Care Time: Yes Total Critical Care Time: 35 Disposition Clinical Impression: ST elevation myocardial infarction (STEMI) Disposition: ADMITTED IP TO THIS HOSP Condition: Serious Is patient prescribed a controlled substance at d/c from ED?: No Referrals: Wenceslao Gale MD [Primary Care Provider] - 1-2 days Time of Disposition: 09:38
[2024-06-11 09:46] LABS: Basophils # (A) 0.1 k/uL (0-0.2); Basophils % (A) 1 %; Eosinophils # (A) 0.2 k/uL (0-0.7); Eosinophils % (A) 3 %; HCT 48.5 % (39.0-53.0); Hypochromasia Slight; Lymphocytes # (A) 2.6 k/uL (1.0-4.8); Lymphocytes % (A) 33 %; MCH 26.8 pg (25.0-35.0); MCV 86.5 fL (80.0-100.0); Mean Platelet Volume 8.6; Monocytes # (A) 0.5 k/uL (0-1.0); Monocytes % (A) 6 %; Neutrophils # (A) 4.3 k/uL (1.3-7.7); Neutrophils % (A) 54 %; Platelet Count 263 k/uL (150-450); RBC 5.61 m/uL (4.30-5.90)
[2024-06-11 09:57] LABS: ALT 21 U/L (4-49); AST 31 U/L (17-59); African American GFR (CKD) 84 (>60 ml/min/1.73 sqM); Albumin 4.3 g/dL (3.5-5.0); Alkaline Phosphatase 95 U/L (38-126); Anion Gap 11 mmol/L; Blood Urea Nitrogen 14 mg/dL (9-20); Calcium 9.5 mg/dL (8.4-10.2); Carbon Dioxide 24 mmol/L (22-30); Chloride 103 mmol/L (98-107); Glucose 126 mg/dL (74-99); INR 1.1 (<1.2); Non-African American GFR(CKD) 72 (>60 ml/min/1.73 sqM); Potassium 4.2 mmol/L (3.5-5.1); Prothrombin Time 11.7 sec (10.0-12.5); Sodium 138 mmol/L (137-145); Total Bilirubin 0.7 mg/dL (0.2-1.3); Total Protein 8.7 g/dL (6.3-8.2)
[2024-06-11] MEDS: VERAPAMIL SYRINGE (5 MG/10 ML) INTRAARTER ONE (10:04)
[2024-06-11] MEDS: LIDOCAINE 1% INJ 10MG/ML (20 ML MDV) SQ ONE (10:04)
[2024-06-11] MEDS: MIDAZOLAM 2 MG/2 ML VIAL IVP ONE (10:05)
[2024-06-11] MEDS: METOPROLOL TARTRATE 5 MG/5 ML VIAL IVP ONE (10:05)
[2024-06-11] MEDS: LIDOCAINE 2% SYG (PF) 100 MG/5 ML MISCELLANE ONE (10:06)
[2024-06-11] MEDS: HEPARIN SODIUM 1,000 UN/ML (10ML VL) IVP ONE (10:15)
--- NOTE | 2024-06-11 10:34 | P.CRDCN ---
History of Present Illness History of present illness: HISTORY OF PRESENT ILLNESS: This is a 73-year-old male with a past medical history significant for artery disease with previous stenting, peripheral vascular disease with previous lower extremity intervention, carotid stenosis with previous endarterectomy, hypertension, hyperlipidemia, and nicotine dependence. Patient follows in the office with Dr. Montoya. We have been asked to see the patient in consultation for STEMI. Patient examined at the bedside. Patient presented to the hospital for chief complaint of chest discomfort. Patient states the pain is in the middle of his chest and has been ongoing for about 45 minutes. The patient was found to have ST elevation in lead I and V2V6. DIAGNOSTICS: - EKG reveals sinus mechanism with ST elevation in lead I and V2V6. - Chest xray not available at the time of this dictation - Laboratory data: WBC 8.0. Hemoglobin 15.0. Platelet count 263. Sodium 138. Potassium 4.2. BUN 14. Creatinine 1.02. Opponent negative x 1 - Current home cardiac medication list is not updated at the time of examination - Most recent echocardiogram obtained in thousand 18 revealed ejection fraction 35 to 40%, trace MR, mild global hypokinesis of LV, and mild LVH - Cardiac catheterization history: August 2020 with arthrectomy of left circu mflex coronary artery, successful stenting of mid left circumflex and proximal left circumflex. REVIEW OF SYSTEMS: At the time of my exam: CONSTITUTIONAL: Denies fever or chills. HEENT: Denies blurred vision, vision changes, or eye pain. Denies hemoptysis CARDIOVASCULAR: Denies chest pain. Denies orthopnea. Denies PND. Denies palpitations RESPIRATORY: Denies shortness of breath. GASTROINTESTINAL: Denies abdominal pain. Denies nausea or vomiting. HEMATOLOGIC: Denies bleeding disorders. GENITOURINARY: Denies any blood in urine. SKIN: Denies pruitis. Denies rash. PHYSICAL EXAM: VITAL SIGNS: Reviewed. GENERAL: Well-developed in no acute distress. HEENT: Head is normocephalic. Pupils are equal, round. Sclerae anicteric. Mucous membranes of the mouth are moist. Neck supple. No JVD or thyromegaly LUNGS: Respirations even and unlabored. Lungs essentially clear to auscultation bilaterally. HEART: Regular rate and rhythm. S1 and S2 heard. ABDOMEN: Soft. Nondistended. Nontender. EXTREMITIES: Normal range of motion. No clubbing or cyanosis. Peripheral pulses intact. No lower extremity edema NEUROLOGIC: Awake and alert. Oriented x 3. ASSESSMENT: STEMI Coronary artery disease with previous stenting of the circumflex and LAD, last in 2020 History of ischemic cardiomyopathy 35 to 40% Peripheral vascular disease with previous lower extremity intervention due to occluded bilateral SFA, 2021 History of carotid stenosis with previous endarterectomy Hypertension Hyperlipidemia Nicotine dependence PLAN: STEMI alert was activated by the ER physician. Patient examined in the ER. Recommend urgent cardiac catheterization. Patient is agreeable Patient did receive aspirin, Lipitor, and heparin bolus in the emergency room Patient was taken to the Senior Systems Administrator in stable condition Further recommendations pending patient course Nurse practitioner note has been reviewed by physician. Signing provider agrees with the documented findings, assessment, and plan of care documented by SAFETY AND SECURITY OFFICER as a scribe. Past Medical History Past Medical History: Coronary Artery Disease (CAD), Cancer, Chest Pain / Angina, COPD, CVA/TIA, Hyperlipidemia, Hypertension, Myocardial Infarction ([place]), Sleep Apnea/CPAP/BIPAP, Vascular Disorder Additional Past Medical History / Comment(s): AAA, Vertigo, basal cell skin cancers, multiple TIA's affected vision, Hx kidney stones, sleep apnea-no machine., See Cardiology H & P Last Myocardial Infarction Date:: 2010 History of Any Multi-Drug Resistant Organisms: None Reported Past Surgical History: Back Surgery, Heart Catheterization With Stent, Hernia Repair, Orthopedic Surgery, Tonsillectomy Additional Past Surgical History / Comment(s): Lt carotid endarterectomy, skin cancer removal, lithotripsy, colonoscopy, right inguinal hernia, not sure how many cardiac stents he has, bilateral cataracts, right lung biopsy, stents in emerita leg-unsure of how many, left femoral popliteal arthrectomy, right shoulder surg., Back surgery x2. Past Anesthesia/Blood Transfusion Reactions: No Reported Reaction Additional Past Anesthesia/Blood Transfusion Reaction / Comment(s): . Date of Last Stent Placement:: 09/02/2020 Past Psychological History: No Psychological Hx Reported Smoking Status: Current every day smoker Past Alcohol Use History: None Reported Past Drug Use History: None Reported - Past Family History Sister(s) Family Medical History: Fibromyalgia Father Family Medical History: Cancer Additional Family Medical History / Comment(s): Rectal Cancer, Mother Family Medical History: CVA/TIA Additional Family Medical History / Comment(s): CVA at age 40. Medications and Allergies Home Medications Medication Instructions Recorded Confirmed Type Clopidogrel [Plavix] 75 mg PO DAILY #90 tab 09/28/17 10/31/23 Rx Aspirin [Adult Low Dose Aspirin EC] 81 mg PO DAILY 04/05/21 10/31/23 History Spironolactone 25 mg PO DAILY 04/05/21 10/31/23 History Atorvastatin Calcium [Lipitor] 80 mg PO DAILY 12/02/21 10/31/23 History lisinopriL 2.5 mg PO DAILY 05/30/23 10/31/23 History Metoprolol Succinate (ER) [Toprol 100 mg PO DAILY #90 tab 07/20/23 10/31/23 Rx XL] Allergies Allergy/AdvReac Type Severity Reaction Status Date / Time No Known Allergies Allergy Verified 06/11/24 09:20 Physical Exam Vitals: Vital Signs Temp Pulse Resp BP Pulse Ox 06/11/24 09:37 99 20 157/104 98 06/11/24 09:29 182/110 06/11/24 09:17 98 F 94 20 139/91 92 L Intake and Output 06/10/24 06/11/24 06/11/24 22:59 06:59 14:59 Other: Weight 90.718 kg Results 06/11/24 09:36 06/11/24 09:36 Cardiac Enzymes 06/11/24 06/11/24 Range/Units 09:36 09:36 AST 31 (17-59) U/L Troponin I <0.012 (0.000-0.034) ng/mL Coagulation 06/11/24 Range/Units 09:36 PT 11.7 (10.0-12.5) sec APTT 29.0 (22.0-30.0) sec CBC 06/11/24 Range/Units 09:36 WBC 8.0 (3.8-10.6) k/uL RBC 5.61 (4.30-5.90) m/uL Hgb 15.0 (13.0-17.5) gm/dL Hct 48.5 (39.0-53.0) % Plt Count 263 (150-450) k/uL Comprehensive Metabolic Panel 06/11/24 Range/Units 09:36 Sodium 138 (137-145) mmol/L Potassium 4.2 (3.5-5.1) mmol/L Chloride 103 (98-107) mmol/L Carbon Dioxide 24 (22-30) mmol/L BUN 14 (9-20) mg/dL Creatinine 1.02 (0.66-1.25) mg/dL Glucose 126 H (74-99) mg/dL Calcium 9.5 (8.4-10.2) mg/dL AST 31 (17-59) U/L ALT 21 (4-49) U/L Alkaline Phosphatase 95 (38-126) U/L Total Protein 8.7 H (6.3-8.2) g/dL Albumin 4.3 (3.5-5.0) g/dL Current Medications Generic Name Dose Route Start Last Admin Trade Name Freq PRN Reason Stop Dose Admin Naloxone HCl 0.2 mg 06/11/24 09:31 Naloxone 0.4 Mg/Ml 1 Ml Vial IV Q2M PRN Opioid Reversal Intake and Output 06/10/24 06/11/24 06/11/24 22:59 06:59 14:59 Other: Weight 90.718 kg Patient Weight 06/12/24 06:59 Weight 90.718 kg 06/11/24 09:36 06/11/24 09:36
--- NOTE | 2024-06-11 10:39 | XR ---
EXAMINATION TYPE: XR chest 1V portable DATE OF EXAM: 06/11/2024 COMPARISON: 08/24/2022 CLINICAL INDICATION: Male, 73 years old with history of chest pain; , TECHNIQUE: XR chest 1V portable views of the chest. FINDINGS: Diffuse interstitial pattern. No sizable pleural effusion or pneumothorax. Mild cardiomegaly. Atheros clerotic change aorta. Diffuse interstitial pattern is increased from prior exam. Diffuse osteopenia. Arthropathy of the shoulders. Degenerative change of the spine. IMPRESSION: 1. The findings are compatible with pulmonary fibrosis however, there is increasing interstitial matt evelyn which could represent superimposed mild venous congestion, interstitial pneumonitis or progressiv e pulmonary fibrosis.. [facility], , 06/11/2024 10:36 AM
[2024-06-11] MEDS: DEXTROSE 5% IN WATER 100 ML with AMIODARONE 150 MG IV ONE (10:55)
[2024-06-11] MEDS: IOPAMIDOL-370 100ML BTL INJ ONE ×2 (11:04→11:29)
[2024-06-11] MEDS: AMIODARONE 360 MG in DEXTROSE 5% IN WATER 200 ML IV ONE (11:05)
[2024-06-11] MEDS: SODIUM CHLORIDE 0.9% 500 ML 500 ML IV ONE ×2 (11:05→11:06)
[2024-06-11] MEDS: niCARdipine Syringe (1,000 mcg/10 mL) INTRACORON ONE (11:07)
[2024-06-11] MEDS: TICAGRELOR 90 MG TAB PO ONE (11:22)
[2024-06-11] MEDS: SODIUM CHLORIDE 0.9% 1,000 ML IV SCH (11:45)
[2024-06-11 12:08] LABS: Glucose,Whole Blood 102 mg/dL (70-110)
[2024-06-11] MEDS: AMIODARONE 450 MG in DEXTROSE 5% IN WATER 250 ML IV SCH (17:00)
[2024-06-11] MEDS ORDERED: ATROPINE SULFATE 0.1 MG/ML 10ML SYRINGE IV PRN (19:40)
[2024-06-11] MEDS ORDERED: ZOLPIDEM 5 MG TAB PO PRN (19:40)
[2024-06-11] MEDS: MAG HYDROX/AL HYDROX/SIMETH 30 ML CUP PO PRN (20:16)
[2024-06-11] MEDS: lisinopriL 5 MG TAB PO SCH (20:37)
[2024-06-11] MEDS: traZODone HCL 50 MG TAB PO PRN (20:37)
[2024-06-11] MEDS: TICAGRELOR 90 MG TAB PO SCH (20:37)
--- NOTE | 2024-06-11 23:49 | CC ---
CARDIAC CATHETERIZATION REPORT PROCEDURES PERFORMED: 1. Left heart catheterization and coronary angiography. 2. Percutaneous transluminal coronary angioplasty and stenting of totally occluded mid left anterior descending with a drug-eluting stent. 3. Percutaneous transluminal coronary angioplasty and stenting of circumflex marginal coronary artery with a drug-eluting stent. PERFORMED BY: Dr. Willow Yost. ANESTHESIA: Moderate conscious sedation time was 85 minutes. CLINICAL INFORMATION: Mr. Flaquito Lopez is a 73-year-old gentleman, a patient of Dr. Montoya, who is known to have CAD, underwent stenting of the proximal LAD and proximal circumflex performed in May 2021. He is a smoker, also has peripheral artery disease, had carotid intervention and bilateral SFA intervention by Dr. Montoya. He continues to smoke and came to the hospital with 45 minutes worth of chest pain suggestive of angina with a precordial ST elevation. He was advised prompt cardiac catheterization after evaluation in the emergency room. PROCEDURE NOTE: Under strict aseptic precautions and local anesthesia, using ultrasound guidance, I got access into the right radial artery, but could not advance the Glidewire beyond the axillary artery and therefore, I presume there is a stenosis in the right axillary artery. Therefore, I took the wire out, left the sheath in place and proceeded to perform from the left radial approach. Under strict aseptic precautions and local anesthesia, a 6-Icelandic introducer was placed in the left radial artery. I used a XB LAD 3.5 guide catheter to cannulate the left coronary artery and noted that there was a total occlusion of the mid LAD and a 95% stenosis of obtuse marginal branch of circumflex. I performed intervention of both of these vessels and then did selective coronary angiography of the right coronary artery and also checked LV pressures. Following this, I proceeded to perform intervention. The patient tolerated the procedure well. The TR band on both sides were applied. Good hemostasis was secured. Good saturation was noted in the fingers of both hands. The patient was sent to the ICU in a stable condition and details were discussed with the patient as well as his . CARDIAC CATHETERIZATION FINDINGS: The left ventricular end-diastolic pressure was 11 to 12 mmHg without any gradient across the aortic valve. CORONARY ANGIOGRAPHY FINDINGS: The right coronary artery is technically a codominant vessel or nondominant vessel, has mild diffuse disease of about 50% to 60% stenosis throughout with calcification, but no critical stenosis. Gives off an acute marginal branch and distally runs off as a posterolateral branch. No significant critical disease in the RCA, but moderate diffuse disease seen throughout in the nondominant or codominant RCA. Left main coronary artery is a very short vessel, immediately bifurcates into LAD and circumflex. No significant disease. Left anterior descending coronary artery: Good caliber vessel. The previous stented segment is open and gives off a diagonal branch and the vessel is totally occluded. The total occlusion in the midportion after septal and diagonal branch without antegrade flow. Left posterior circumflex coronary artery is a dominant vessel, gives off a high first obtuse marginal which has a 95% stenosis and the second obtuse marginal and distal posterolateral branches which have diffuse disease. First obtuse marginal therefore has a significant narrowing. FINAL IMPRESSION: This patient has normal filling pressures. A codominant or left dominant system with a total occlusion of mid LAD and 95% stenosis of the circumflex marginal. Previously stented proximal LAD and proximal circumflex were patent. RECOMMENDATIONS: I recommended PCI of LAD and that was performed expeditiously. PCI PROCEDURE DETAILS: I used a XB LAD 3.5 guide catheter to cannulate the left coronary artery in a run- through wire. I could not cross the total occlusion. I switched over to a long Whisper J wire with a super cross 45 degree catheter. With this combination, I crossed the total occlusion and kept the wire distally. I then advanced the other wire which was also a Whisper wire, but a short wire and I kept it in the distal LAD. I performed predilatation with a 2.5 caliber NC Trek balloon. Multiple inflations were given. There was not much outflow. Distally, I used a 2.0 caliber NC Trek balloon and gave multiple inflations almost to the apex. Eventually, the vessel opened up. I deployed a 2.5 caliber 18 mm long Xience stent at the mid LAD and proximal to it, a 2.75 caliber 18 mm long Xience stent. Distally, I placed a 2.25 caliber 12 mm long Xience stent. Excellent angiographic result with good flow was noted, but towards the apex, there was a total occlusion. Remarkably a number of septal branches opened up and the patient became pain-free with improvement in anterior ST elevation. Reperfusion was accomplished in 45 minutes. I then turned my attention to the circumflex. I used a short Whisper wire and using the same guide catheter crossed the lesion in the circumflex marginal. I pre-dilated the lesion with a 2.0 caliber NC Trek balloon and deployed a 2.5 caliber 12 mm long Xience stent with excellent angiographic result. The patient had excellent angiographic results. He received 180 mg of Brilinta and he will be on aspirin and Brilinta without interruption for 1 year. Results were discussed with the patient and . He was sent to the room in a stable condition. Excellent angiographic result was achieved. MMODL / IJN: [id number] /
[2024-06-12 06:11] LABS: Basophils % (A) 0 %; Eosinophils # (A) 0.1 k/uL (0-0.7); Eosinophils % (A) 1 %; HCT 46.2 % (39.0-53.0); HGB 14.1 gm/dL (13.0-17.5); Hypochromasia Moderate; Lymphocytes # (A) 1.5 k/uL (1.0-4.8); Lymphocytes % (A) 15 %; MCH 26.5 pg (25.0-35.0); MCHC 30.4 g/dL (31.0-37.0); MCV 87.1 fL (80.0-100.0); Mean Platelet Volume 8.1; Monocytes # (A) 0.6 k/uL (0-1.0); Monocytes % (A) 6 %; Neutrophils # (A) 7.8 k/uL (1.3-7.7); Neutrophils % (A) 76 %; Platelet Count 224 k/uL (150-450); RDW 14.9 % (11.5-15.5); WBC 10.3 k/uL (3.8-10.6)
[2024-06-12] MEDS: ONDANSETRON 4 MG/2 ML VIAL IVP PRN (06:24)
[2024-06-12 06:31] LABS: ALT 47 U/L (4-49); African American GFR (CKD) >90 (>60 ml/min/1.73 sqM); Albumin 3.6 g/dL (3.5-5.0); Anion Gap 4 mmol/L; Blood Urea Nitrogen 12 mg/dL (9-20); Calcium 8.8 mg/dL (8.4-10.2); Carbon Dioxide 22 mmol/L (22-30); Chloride 108 mmol/L (98-107); Glucose 110 mg/dL (74-99); Non-African American GFR(CKD) 86 (>60 ml/min/1.73 sqM); Sodium 134 mmol/L (137-145); Total Bilirubin 1.1 mg/dL (0.2-1.3); Total Protein 7.6 g/dL (6.3-8.2)
[2024-06-12 06:36] LABS: AST 302 U/L (17-59); Alkaline Phosphatase 79 U/L (38-126); Potassium 4.4 mmol/L (3.5-5.1)
--- NOTE | 2024-06-12 07:02 | CA ---
Transthoracic Echo Report Name: Flaquito Lopez Age: 73 Gender: M : 1950 Exam Date: 06/11/2024 13:25 Exam Location: [facility] Ht (in): 68 Wt (lb): 200 Ordering Physician: Alondra Yost MD ([id number]) Attending/Referring Phys: Sinter Machine Operator Charla Espitia, ANSON Procedure CPT: Indications: post stemi, evaluate lvf Cardiac Hx: Technical Quality: Fair Contrast 1: Definity Total Dose (mL): 2 Contrast 2: Total Dose (mL): MEASUREMENTS (Male / Female) Normal Values 2D ECHO LV Diastolic Diameter PLAX 5.4 cm 4.2 - 5.9 / 3.9 - 5.3 cm LV Systolic Diameter PLAX 4.5 cm IVS Diastolic Thickness 1.1 cm 0.6 - 1.0 / 0.6 - 0.9 cm LVPW Diastolic Thickness 1.2 cm 0.6 - 1.0 / 0.6 - 0.9 cm LV Relative Wall Thickness 0.4 RV Internal Dim ED PLAX 1.0 cm LA Systolic Diameter LX 4.3 cm 3.0 - 4.0 / 2.7 - 3.8 cm LA Volume 71.0 cm??? 18 - 58 / 22 - 52 cm??? LA Volume Index 33.6 cm???/m??? 16 - 28 cm???/m??? M-MODE Aortic Root Diameter MM 3.3 cm LA Systolic Diameter MM 4.1 cm LA Ao Ratio MM 1.2 AV Cusp Separation MM 1.8 cm DOPPLER MV Area PHT 3.2 cm??? Mitral E Point Velocity 49.2 cm/s Mitral A Point Velocity 77.3 cm/s Mitral E to A Ratio 0.6 MV Deceleration Time 240.3 ms TR Peak Velocity 301.9 cm/s TR Peak Gradient 36.5 mmHg FINDINGS Left Ventricle Left ventricular ejection fraction is estimated at 20-25% %. Anteroapical, anteroseptal and anterolateral akinesis.left ventricular cavity size normal. Mildly increased left ventricular wall thickness. Right Ventricle Normal right ventricular size and function. Mild pulmonary hypertension. Right Atrium Mild right atrial dilatation. Left Atrium Mildly increased left atrial diameter. Mildly increased left atrial volume. Mitral Valve Structurally normal mitral valve. mild mitral regurgitation. No mitral stenosis.mitral annular calcification. Aortic Valve Trileaflet aortic valve. No aortic stenosis. No aortic regurgitation.aortic valve sclerosis. Tricuspid Valve Structurally normal tricuspid valve. Mild tricuspid regurgitation. No tricuspid stenosis. Pulmonic Valve Pulmonic valve not well visualized. Pericardium No pericardial or pleural effusion. Aorta Normal size aortic root and proximal ascending aorta. CONCLUSIONS Technically difficult study. Definity ECHO contrast used for improved visualization of the endocardial borders (inadequate visualization of two or more contiguous segments). Severely impaired left ventricular systolic function with segmental wall motion abnormality Mild mitral and tricuspid regurgitation Previewed by: Dr. Aimee Burt MD (Electronically Signed) Final Date: 12 June 2024 07:01
[2024-06-12] MEDS: ASPIRIN 81 MG PO SCH (08:53)
[2024-06-12] MEDS: METOPROLOL SUCCINATE (ER) 100 MG TAB.ER.24H PO SCH (08:53)
[2024-06-12] MEDS: ATORVASTATIN 80 MG TAB PO SCH (08:53)
[2024-06-12] MEDS: SPIRONOLACTONE 25 MG TAB PO SCH (08:53)
[2024-06-12] MEDS: FUROSEMIDE 10 MG/ML 2 ML VIAL IV SCH (08:54)
[2024-06-12 10:41] VITALS: BMI 31.0
[2024-06-12] MEDS: AMIODARONE 200 MG TAB PO SCH (12:10)
--- NOTE | 2024-06-12 12:47 | PN ---
PROGRESS NOTE SUBJECTIVE: Mr. Lopez presented with acute anterior UT yesterday, underwent stenting of his LAD and circumflex. He is a vasculopath with bilateral SFA intervention and also has a right axillary artery stenosis and I could not go through. I went from left radial for the procedure. His ejection fraction is about 25%. He is in mild heart failure. I will place him on Lasix 20 mg q.12 hours and also some breathing treatments with DuoNeb. He is in sinus rhythm today. OBJECTIVE: NECK: JVD 1 cm. No carotid bruit. HEART: S1, S2 with a short systolic murmur. LUNGS: Reveal diminished air entry. Fine rales over both bases. ABDOMEN: Soft. LOWER EXTREMITIES: Revealed diminished pulses. Right radial site is clean and dry with a good pulse. The patient may require a LifeVest. We discussed this briefly. We will see how he does over the next 48 hours and we will move him to telemetry if he is more stable. MMANDREIL / IJN: [id number] /
[2024-06-12] MEDS: IPRATROPIUM-ALBUTEROL 3 ML NEB INHALATION SCH (12:52)
--- NOTE | 2024-06-12 18:49 | P.CNPUL ---
History of Present Illness Consult date: 06/12/24 Reason for consult: dyspnea History of present illness: This is a 73-year-old male patient with known history of coronary artery disease, peripheral vascular disease, carotid artery disease with previous endarterectomy, hypertension hyperlipidemia and chronic smoking. The patient continues to smoke around 1 pack of cigarettes a day. Noted the patient also has history of biopsy confirmed RB ILD and this interstitial lung disease related to chronic smoking. He does have chronic inflammatory changes with fibrosis and some limited bronchiectasis based on the previous CAT scan of the chest. The patient does not utilize oxygen. The patient does not utilize any maintenance respiratory medications. He does have chronic exertional dyspnea. He presented to hospital because of an acute chest pain. He was found to have an acute ST segment elevation myocardial infarction and the patient had ST segment elevation in lead I and leads V2 through V6. The patient had a immediate cardiac catheterization and stenting of the LAD x 2. The patient had normal filling pressures. Previously placed stents in the LAD were patent. Echocardiogram was also done and the patient was found to have impaired LV function with an ejection fraction of 20 to 25% and the patient had anteroapical, anteroseptal and anterolateral hypokinesis/akinesis. Patient is currently resting comfortably in the intensive care unit. Is currently on 3 days of oxygen by nasal cannula with a pulse ox of 94%. He did encounter ventricular arrhythmias at the time of his coronary intervention and the patient is currently on amiodarone drip at 0.5 mg/min. He is also on metoprolol 100 mg p.o. daily and lisinopril 5 mg p.o. daily and Lasix 20 mg IV every 12 hours. He remains on a combination of aspirin and Brilinta. The white cell count of 10.3 with a hemoglobin 14.1 and a platelet count of 224. Sodium is at 134, BUN is 12 with a creatinine of 0.8. His troponins were negative the time of admission. He is awake and alert and communicating. Denies having any chest pain for now. Review of Systems Constitutional: Reports as per HPI Eyes: denies as per HPI, denies blurred vision, denies bulging eye, denies decreased vision, denies diplopia, denies discharge, denies dry eye, denies irritation, denies itching, denies pain, denies photophobia, denies loss of peripheral vision, denies loss of vision, denies tunnel vision/blind spots Ears: deny: decreased hearing, ear discharge, earache, tinnitus Ears, nose, mouth and throat: Reports as per HPI Breasts: absent: as per HPI, gynecomastia Cardiovascular: Reports chest pain, Reports claudication, Reports decreased exercise tolerance, Reports dyspnea on exertion Respiratory: Reports cough, Reports dyspnea Gastrointestinal: Reports as per HPI Genitourinary: Reports as per HPI Musculoskeletal: Reports as per HPI Musculoskeletal: absent: ankle pain, ankle stiffness, ankle swelling, as per HPI, elbow pain, elbow stiffness, elbow swelling, foot pain, foot stiffness, foot swelling, hand pain, hand stiffness, hand swelling, hip pain, hip stiffness, hip swelling, knee pain, knee stiffness, knee swelling, shoulder jozef n, shoulder stiffness, shoulder swelling, wrist pain, wrist stiffness, wrist swelling Integumentary: Reports as per HPI Neurological: Reports as per HPI Psychiatric: Reports as per HPI Endocrine: Reports as per HPI Hematologic/Lymphatic: Reports as per HPI Allergic/Immunologic: Reports as per HPI Past Medical History Past Medical History: Coronary Artery Disease (CAD), Cancer, Chest Pain / Angina, Heart Failure, COPD, CVA/TIA, Eye Disorder, Hyperlipidemia, Hypertension, Myocardial Infarction (NM), Skin Disorder, Sleep Apnea/CPAP/BIPAP, Vascular Disorder Additional Past Medical History / Comment(s): AAA, Vertigo, basal cell skin cancers, multiple TIA's affected vision, Hx kidney stones, sleep apnea-no machine., See Cardiology H & P Last Myocardial Infarction Date:: 2010 History of Any Multi-Drug Resistant Organisms: None Reported Past Surgical History: Back Surgery, Cardiac Ablation, Heart Catheterization With Stent, Hernia Repair, Orthopedic Surgery, Tonsillectomy Additional Past Surgical History / Comment(s): Lt carotid endarterectomy, skin cancer removal, lithotripsy, colonoscopy, right inguinal hernia, not sure how many cardiac stents he has, bilateral cataracts, right lung biopsy, stents in emerita leg-unsure of how many, left femoral popliteal arthrectomy, right shoulder surg., Back surgery x2. Past Anesthesia/Blood Transfusion Reactions: No Reported Reaction Additional Past Anesthesia/Blood Transfusion Reaction / Comment(s): . Date of Last Stent Placement:: 09/02/2020 Past Psychological History: No Psychological Hx Reported Additional Psychological History / Comment(s): . Smoking Status: Current every day smoker Past Alcohol Use History: None Reported Additional Past Alcohol Use History / Comment(s): Started smoking at age 14, currently smokes about 6 cigarettes daily. Past Drug Use History: None Reported - Past Family History Sister(s) Family Medical History: Fibromyalgia Father Family Medical History: Cancer Additional Family Medical History / Comment(s): Rectal Cancer, Mother Family Medical History: CVA/TIA Additional Family Medical History / Comment(s): CVA at age 40. Medications and Allergies Home Medications Medication Instructions Recorded Confirmed Type Clopidogrel [Plavix] 75 mg PO DAILY #90 tab 09/28/17 06/11/24 Rx Aspirin [Adult Low Dose Aspirin EC] 81 mg PO DAILY 04/05/21 06/11/24 History Spironolactone 25 mg PO DAILY 04/05/21 06/11/24 History Atorvastatin Calcium [Lipitor] 80 mg PO DAILY 12/02/21 06/11/24 History Metoprolol Succinate (ER) [Toprol 100 mg PO DAILY #90 tab 07/20/23 06/11/24 Rx XL] lisinopriL [Zestril] 5 mg PO DAILY 06/11/24 06/11/24 History Allergies Allergy/AdvReac Type Severity Reaction Status Date / Time No Known Allergies Allergy Verified 06/11/24 14:09 Physical Exam Vitals: Vital Signs Temp Pulse Resp BP Pulse Ox FiO2 06/12/24 10:00 54 L 18 104/78 98 06/12/24 09:00 63 13 116/49 96 06/12/24 08:00 98.1 F 61 20 110/49 94 L 06/12/24 07:00 61 17 105/71 91 L 06/12/24 06:00 58 L 12 100/57 95 06/12/24 05:00 60 17 110/59 96 06/12/24 04:00 98.2 F 57 L 31 H 97 06/12/24 03:00 64 16 96/66 97 06/12/24 02:00 64 13 118/95 95 06/12/24 01:00 77 22 107/80 93 L 06/12/24 00:00 98.2 F 22 109/64 94 L 2 06/11/24 23:00 62 24 96/67 95 06/11/24 22:00 67 16 133/75 94 L 06/11/24 21:00 72 17 119/86 95 06/11/24 20:00 98.2 F 64 15 117/82 96 06/11/24 19:00 71 34 H 117/82 96 06/11/24 18:00 79 38 H 104/60 99 06/11/24 17:00 78 16 102/62 94 L 06/11/24 16:30 66 29 H 84/72 100 06/11/24 16:00 98.6 F 86 10 L 119/38 86 L 06/11/24 15:30 73 19 103/75 96 06/11/24 15:00 61 19 98/82 98 06/11/24 14:30 63 34 H 124/79 99 06/11/24 14:15 72 20 95/53 99 06/11/24 14:00 71 12 91/77 99 06/11/24 13:45 70 18 116/85 97 06/11/24 13:30 72 16 106/74 99 06/11/24 13:15 72 24 117/85 98 06/11/24 13:00 72 15 120/81 98 06/11/24 12:45 67 16 129/102 98 06/11/24 12:30 72 12 118/93 96 06/11/24 12:15 79 10 L 129/102 98 06/11/24 12:00 98.2 F 81 21 129/102 98 06/11/24 11:52 73 20 Intake and Output 06/11/24 06/12/24 06/12/24 22:59 06:59 14:59 Intake Total 840 723.893 95 Output Total 75 550 50 Balance 765 173.893 45 Intake: IV 600 525 95 Sodium Chloride 0.9% 1, 600 525 95 000 ml @ 75 mls/hr IV . [id number] [facility] Rx#:[id number] Intake, IV Titration 198.893 Amount Amiodarone 450 mg In 198.893 Dextrose 5% in Water 250 ml @ 0.5 MG/MIN 16.667 mls/hr IV .Q15H [facility] Rx#: [id number] Oral 240 Output: Urine 75 550 50 Other: Voiding Method Urinal Urinal Urinal Weight 92.6 kg The patient appeared well nourished and normally developed. Vital signs as documented. The patient is currently on 3 L O2 nasal cannula Head exam is unremarkable. No scleral icterus or corneal arcus noted. Neck is without jugular venous distension, thyromegaly, or carotid bruits. C arotid upstrokes are brisk bilaterally. Lungs are diminished bilaterally along with some few scattered expiratory wheeze Cardiac exam reveals the PMI to be normally sized and situated. Rhythm is regu lar. First and second heart sounds normal. No murmurs, rubs or gallops. Abdominal exam reveals normal bowel sounds, no masses, no organomegaly and no aortic enlargement. Extremities are nonedematous and both femoral and pedal pulses are diminished in lower extremities bilaterally Examination of the skin revealed no evidence of significant rashes, suspicious appearing nevi or other concerning lesions. Neurologically, the patient is awake and alert and the patient does not have any focal neurological deficit. Cranial nerves are essentially intact. Results - Laboratory Findings CBC and BMP: 06/12/24 05:52 06/12/24 05:52 PT/INR, D-dimer PT 11.7 sec (10.0-12.5) 06/11/24 09:36 INR 1.1 (<1.2) 06/11/24 09:36 Abnormal lab findings: Abnormal Labs 06/11/24 06/12/24 06/12/24 09:36 05:52 05:52 MCHC 30.4 L Neutrophils # 7.8 H Sodium 134 L Chloride 108 H Glucose 126 H 110 H AST 302 H Total Protein 8.7 H Assessment and Plan Plan: Acute ST segment elevation myocardial infarction, status post emergent cardiac catheterization and stenting of the LAD x 2, currently on aspirin and Brilinta. Ventricular arrhythmias/tachycardia identified at the time of cardiac madhu terization, currently in the middle drip at 0.5 mg/min and the current cardiac rhythm is sinus Known history of coronary artery disease Ischemic cardiomyopathy with systolic heart failure and ejection fraction of 20 to 25% Chronic interstitial lung disease and the patient has biopsy confirmed RB ILD, and this is an ILD related to his chronic smoking. The patient continues to smoke 1 pack of cigarettes a day COPD Acute hypoxic марина failure currently on 3 liters O2 by nasal cannula Obstructive sleep apnea, not receiving any CPAP therapy Hypertension Hyperlipidemia History of basal cell skin cancer Peripheral vascular disease with chronic claudication Kidney stones Abdominal aortic aneurysm Carotid artery disease with previous endarterectomy Previous history of TIA Plan Immediate smoking cessation the patient was counseled that regard Continue oxygen 3 L O2 t nasal cannula and titrate oxygen flow to maintain saturation above 90% Continue IV Lasix Continue metoprolol Continue lisinopril Statin and the patient is currently on Lipitor 80 mg p.o. daily Start the patient on Aldactone 25 mg p.o. daily Continue amiodarone drip and switch this patient to oral amiodarone Provide the patient an incentive spirometer Will keep the patient in ICU and will continue to monitor.
--- NOTE | 2024-06-12 20:16 | P.HPIM ---
History of Present Illness H&P Date: 06/12/24 Chief Complaint: STEMI Flaquito Lopez is a 73-year-old male with a past medical history significant for coronary artery disease with previous stenting, peripheral vascular disease, HTN, HLD, nicotine dependence who presented to the ED with substernal chest pain radiating into the LUE as well as shortness of breath. He states his symptoms started in the middle of the night woke him out of sleep and he drove himself to the hospital when he realized what was happening. 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 Review of Systems All systems: negative Constitutional: Denies chills, Denies fever Eyes: denies blurred vision, denies pain Ears, nose, mouth and throat: Denies headache, Denies sore throat Cardiovascular: Reports chest pain, Denies shortness of breath Respiratory: Denies cough Gastrointestinal: Denies abdominal pain, Denies diarrhea, Denies nausea, Denies vomiting Musculoskeletal: Denies myalgias Integumentary: Denies pruritus, Denies rash Neurological: Denies numbness, Denies weakness Psychiatric: Denies anxiety, Denies depression Endocrine: Denies fatigue, Denies weight change Past Medical History Past Medical History: Coronary Artery Disease (CAD), Cancer, Chest Pain / Angina, Heart Failure, COPD, CVA/TIA, Eye Disorder, Hyperlipidemia, Hypertension, Myocardial Infarction (VT), Skin Disorder, Sleep Apnea/CPAP/BIPAP, Vascular Disorder Additional Past Medical History / Comment(s): AAA, Vertigo, basal cell skin cancers, multiple TIA's affected vision, Hx kidney stones, sleep apnea-no machine., See Cardiology H & P Last Myocardial Infarction Date:: 2010 History of Any Multi-Drug Resistant Organisms: None Reported Past Surgical History: Back Surgery, Cardiac Ablation, Heart Catheterization With Stent, Hernia Repair, Orthopedic Surgery, Tonsillectomy Additional Past Surgical History / Comment(s): Lt carotid endarterectomy, skin cancer removal, lithotripsy, colonoscopy, right inguinal hernia, not sure how many cardiac stents he has, bilateral cataracts, right lung biopsy, stents in emerita leg-unsure of how many, left femoral popliteal arthrectomy, right shoulder surg., Back surgery x2. Past Anesthesia/Blood Transfusion Reactions: No Reported Reaction Additional Past Anesthesia/Blood Transfusion Reaction / Comment(s): . Date of Last Stent Placement:: 09/02/2020 Past Psychological History: No Psychological Hx Reported Additional Psychological History / Comment(s): . Smoking Status: Current every day smoker Past Alcohol Use History: None Reported Additional Past Alcohol Use History / Comment(s): Started smoking at age 14, currently smokes about 6 cigarettes daily. Past Drug Use History: None Reported - Past Family History Sister(s) Family Medical History: Fibromyalgia Father Family Medical History: Cancer Additional Family Medical History / Comment(s): Rectal Cancer, Mother Family Medical History: CVA/TIA Additional Family Medical History / Comment(s): CVA at age 40. Medications and Allergies Home Medications Medication Instructions Recorded Confirmed Type Clopidogrel [Plavix] 75 mg PO DAILY #90 tab 09/28/17 06/11/24 Rx Aspirin [Adult Low Dose Aspirin EC] 81 mg PO DAILY 04/05/21 06/11/24 History Spironolactone 25 mg PO DAILY 04/05/21 06/11/24 History Atorvastatin Calcium [Lipitor] 80 mg PO DAILY 12/02/21 06/11/24 History Metoprolol Succinate (ER) [Toprol 100 mg PO DAILY #90 tab 07/20/23 06/11/24 Rx XL] lisinopriL [Zestril] 5 mg PO DAILY 06/11/24 06/11/24 History Allergies Allergy/AdvReac Type Severity Reaction Status Date / Time No Known Allergies Allergy Verified 06/11/24 14:09 Physical Exam Vitals: Vital Signs Temp Pulse Resp BP Pulse Ox FiO2 06/12/24 19:57 57 L 06/12/24 16:00 50 L 20 105/66 94 L 06/12/24 15:00 53 L 21 0/0 94 L 06/12/24 14:00 55 L 11 L 95/56 94 L 06/12/24 13:00 56 L 21 97/75 94 L 06/12/24 12:00 98.2 F 60 25 H 108/69 93 L 06/12/24 11:00 59 L 22 95/60 95 06/12/24 10:00 54 L 18 104/78 98 06/12/24 09:00 63 13 116/49 96 06/12/24 08:00 98.1 F 61 20 110/49 94 L 06/12/24 07:00 61 17 105/71 91 L 06/12/24 06:00 58 L 12 100/57 95 06/12/24 05:00 60 17 110/59 96 06/12/24 04:00 98.2 F 57 L 31 H 97 06/12/24 03:00 64 16 96/66 97 06/12/24 02:00 64 13 118/95 95 06/12/24 01:00 77 22 107/80 93 L 06/12/24 00:00 98.2 F 22 109/64 94 L 2 06/11/24 23:00 62 24 96/67 95 06/11/24 22:00 67 16 133/75 94 L 06/11/24 21:00 72 17 119/86 95 Intake and Output 06/12/24 06/12/24 06/12/24 06:59 14:59 22:59 Intake Total 723.893 135 0 Output Total 550 1025 200 Balance 173.893 -890 -200 Intake: IV 525 135 0 Sodium Chloride 0.9% 1, 525 135 0 000 ml @ 75 mls/hr IV . [id number] [facility] Rx#:[id number] Intake, IV Titration 198.893 Amount Amiodarone 450 mg In 198.893 Dextrose 5% in Water 250 ml @ 0.5 MG/MIN 16.667 mls/hr IV .Q15H [facility] Rx#: [id number] Output: Urine 550 1025 200 Other: Voiding Method Urinal Urinal Urinal Weight 92.6 kg 92.6 kg Vitals reviewed General: well developed, well nourished NAD HEENT: Normocephalic, atraumatic, mucus membranes moist Neck: supple, no JVD, no thyromegaly CV: Regular rate and rhythm, pulses 2+ Lungs: Normal effort. No wheezes or rales Abd: soft, nontender, bowel sounds present Neuro: Alert and oriented x3, no focal deficitS kin: warm and dry Results CBC & Chem 7: 06/12/24 05:52 06/12/24 05:52 Labs: Abnormal Lab Results - Last 24 Hours (Table) 06/12/24 06/12/24 Range/Units 05:52 05:52 MCHC 30.4 L (31.0-37.0) g/dL Neutrophils # 7.8 H (1.3-7.7) k/uL Sodium 134 L (137-145) mmol/L Chloride 108 H (98-107) mmol/L Glucose 110 H (74-99) mg/dL AST 302 H (17-59) U/L Thrombosis Risk Factor Assmnt - Choose All That Apply Each Factor Represents 1 point: Abnormal pulmonary function (COPD), Acute VT, Medical pt on bed rest, Obesity (BMI >25) Other Risk Factors: No Other congenital or acquired thrombophilia - If yes, enter type in comment: No Thrombosis Risk Factor Assessment Total Risk Factor Score: 4 Thrombosis Risk Factor Assessment Level: Moderate Risk Assessment and Plan Plan: STEMI s/p PCI CAD PAD HTN HLD Continue with current ICU care per Cardiology and critical care. Closely monitor blood counts and renal function
[2024-06-13 06:46] LABS: HCT 41.3 % (39.0-53.0); HGB 13.4 gm/dL (13.0-17.5); Hypochromasia Slight; MCH 27.7 pg (25.0-35.0); MCHC 32.5 g/dL (31.0-37.0); MCV 85.4 fL (80.0-100.0); Mean Platelet Volume 8.7; Platelet Count 232 k/uL (150-450); RBC 4.84 m/uL (4.30-5.90); WBC 8.7 k/uL (3.8-10.6)
[2024-06-13 07:00] LABS: African American GFR (CKD) 76 (>60 ml/min/1.73 sqM); Anion Gap 1 mmol/L; Blood Urea Nitrogen 19 mg/dL (9-20); Calcium 8.7 mg/dL (8.4-10.2); Carbon Dioxide 30 mmol/L (22-30); Chloride 102 mmol/L (98-107); Glucose 87 mg/dL (74-99); Non-African American GFR(CKD) 66 (>60 ml/min/1.73 sqM); Potassium 4.4 mmol/L (3.5-5.1); Sodium 133 mmol/L (137-145)
--- NOTE | 2024-06-13 10:38 | P.PN ---
Subjective Progress Note Date: 06/13/24 PROGRESS NOTE The patient is a 73-year-old male who presented with evidence of an acute myocardial infarction and underwent coronary angiography by Dr. Yost and was found to have occluded LAD and significant disease in the left circumflex and underwent stenting of both vessels. He has a known history of severe peripheral vascular disease. He has a prior cardiomyopathy but worse on the most recent echocardiogram. His echocardiogram showed an ejection fraction of 20 to 25%. In January 2024 he was found to have a fixed apical defect with an ejection fraction of 34% on his nuclear scan. He is feeling well this morning, he denies any chest discomfort, dizziness or palpitations. He denies any nausea. He is in sinus mechanism. Hemodynamically stable. Medications: Amiodarone 200 mg twice a day, aspirin, Lasix 20 mg IV twice a day, lisinopril 5 mg daily, metoprolol succinate 100 mg daily, spironolactone 25 mg daily, Brilinta 90 mg twice a day, trazodone, atorvastatin 80 mg daily PHYSICAL EXAMINATION: Blood pressure 104/50 heart rate 50 LUNGS: Clear to auscultation HEART: Regular rate and rhythm, S1, S2. No S3. No systolic murmur ABDOMEN: Soft, nontender, no organomegaly EXTREMETIES: No edema LAB: Hemoglobin 13.4, potassium 4.4, BUN 19, creatinine 1.1 IMPRESSION: 1. Status post anterior myocardial infarction with stenting of the LAD and left circumflex 2. Severe ischemic cardiomyopathy 3. Severe peripheral vascular disease 4. Hyperlipidemia PLAN: 1. Change to oral diuretics 2. Add Farxiga 3. Decrease amiodarone 4. Increase physical activity 5. If stable transfer to telemetry 6. The patient may require a life vest Objective - Vital Signs Vital signs: Vital Signs Temp 98.1 F 06/13/24 08:00 Pulse 57 L 06/13/24 08:30 Resp 20 06/13/24 08:00 BP 108/48 06/13/24 08:00 Pulse Ox 97 06/13/24 08:20 FiO2 2 06/12/24 00:00 Intake & Output 06/12/24 06/13/24 06/13/24 18:59 06:59 18:59 Intake Total 135 Output Total 1225 1100 Balance -1090 -1100 Weight 92.6 kg 87.3 kg Intake: IV 135 Sodium Chloride 0.9% 1, 135 000 ml @ 75 mls/hr IV . [id number] [facility] Rx#:[id number] Output: Urine 1225 1100 Other: Voiding Method Urinal Urinal # Voids 2 - Labs CBC & Chem 7: 06/13/24 06:10 06/13/24 06:10 Labs: Abnormal Lab Results - Last 24 Hours (Table) 06/13/24 Range/Units 06:10 Sodium 133 L (137-145) mmol/L
[2024-06-13] MEDS: DAPAGLIFLOZIN PROPANEDIOL 10 MG TABLET PO SCH (13:16)
--- NOTE | 2024-06-13 13:53 | P.PN ---
Subjective Progress Note Date: 06/13/24 This is a 73-year-old male patient with known history of coronary artery disease, peripheral vascular disease, carotid artery disease with previous endarterectomy, hypertension hyperlipidemia and chronic smoking. The patient continues to smoke around 1 pack of cigarettes a day. Noted the patient also h as history of biopsy confirmed RB ILD and this interstitial lung disease related to chronic smoking. He does have chronic inflammatory changes with fibrosis and some limited bronchiectasis based on the previous CAT scan of the chest. The patient does not utilize oxygen. The patient does not utilize any maintenance respiratory medications. He does have chronic exertional dyspnea. He presented to hospital because of an acute chest pain. He was found to have an acute ST segment elevation myocardial infarction and the patient had ST segment elevation in lead I and leads V2 through V6. The patient had a immediate cardiac catheterization and stenting of the LAD x 2. The patient had normal filling pressures. Previously placed stents in the LAD were patent. Echocardiogram was also done and the patient was found to have impaired LV function with an ejection fraction of 20 to 25% and the patient had anteroapical, anteroseptal and anterolateral hypokinesis/akinesis. Patient is currently resting comfortably in the intensive care unit. Is currently on 3 days of oxygen by nasal cannula with a pulse ox of 94%. He did encounter ventricular arrhythmias at the time of his coronary intervention and the patient is currently on amiodarone drip at 0.5 mg/min. He is also on metoprolol 100 mg p.o. daily and lisinopril 5 mg p.o. daily and Lasix 20 mg IV every 12 hours. He remains on a combination of aspirin and Brilinta. The white cell count of 10.3 with a hemoglobin 14.1 and a platelet count of 224. Sodium is at 134, BUN is 12 with a creatinine of 0.8. His troponins were negative the time of admission. He is awake and alert and communicating. Denies having any chest pain for now. On 06/13/2024, the patient is being seen for a follow-up. He is free of any chest pain. Hemodynamically stable today has been no other significant events overnight. He remains on a combination of aspirin and Brilinta. He is also on amiodarone and he was switched to oral 200 mg p.o. on a daily basis. He is also on metoprolol milligrams p.o. daily, Zestril, Farxiga and Aldactone. He is on 2 L of oxygen by nasal cannula. No chest pain or shortness of breath. The white cell count is at 8.7 with a hemoglobin 15.4. Electrolytes are all within normal limits. Normal renal function. No other significant events overnight. Objective - Vital Signs Vital signs: Vital Signs Temp 98.1 F 06/13/24 08:00 Pulse 57 L 06/13/24 08:30 Resp 20 06/13/24 08:00 BP 108/48 06/13/24 08:00 Pulse Ox 97 06/13/24 08:20 FiO2 2 06/12/24 00:00 Intake & Output 06/12/24 06/13/24 06/13/24 18:59 06:59 18:59 Intake Total 135 Output Total 1225 1100 Balance -1090 -1100 Weight 92.6 kg 87.3 kg Intake: IV 135 Sodium Chloride 0.9% 1, 135 000 ml @ 75 mls/hr IV . [id number] [facility] Rx#:[id number] Output: Urine 1225 1100 Other: Voiding Method Urinal Urinal # Voids 2 - Exam The patient appeared well nourished and normally developed. Vital signs as documented. The patient is currently on 3 L O2 nasal cannula Head exam is unremarkable. No scleral icterus or corneal arcus noted. Neck is without jugular venous distension, thyromegaly, or carotid bruits. Carotid upstrokes are brisk bilaterally. Lungs are diminished bilaterally along with some few scattered expiratory wheeze Cardiac exam reveals the PMI to be normally sized and situated. Rhythm is regular. First and second heart sounds normal. No murmurs, rubs or gallops. Abdominal exam reveals normal bowel sounds, no masses, no organomegaly and no a ortic enlargement. Extremities are nonedematous and both femoral and pedal pulses are diminished in lower extremities bilaterally Examination of the skin revealed no evidence of significant rashes, suspicious appearing nevi or other concerning lesions. Neurologically, the patient is awake and alert and the patient does not have any focal neurological deficit. Cranial nerves are essentially intact. - Labs CBC & Chem 7: 06/13/24 06:10 06/13/24 06:10 Labs: Abnormal Lab Results - Last 24 Hours (Table) 11/28/24 Range/Units 06:10 Sodium 133 L (137-145) mmol/L Assessment and Plan Plan: Acute ST segment elevation myocardial infarction, status post emergent cardiac catheterization and stenting of the LAD x 2, currently on aspirin and Brilinta. The patient is hemodynamically stable and the patient is currently free of any chest pain Ventricular arrhythmias/tachycardia identified at the time of cardiac catheterization, currently in normal sinus rhythm and the patient is on a combination of metoprolol and amiodarone. Known history of coronary artery disease Ischemic cardiomyopathy with systolic heart failure and ejection fraction of 20 to 25% Chronic interstitial lung disease and the patient has biopsy confirmed RB ILD, and this is an ILD related to his chronic smoking. The patient continues to smoke 1 pack of cigarettes a day COPD Acute hypoxic марина failure currently on 3 liters O2 by nasal cannula Obstructive sleep apnea, not receiving any CPAP therapy Hypertension Hyperlipidemia History of basal cell skin cancer Peripheral vascular disease with chronic claudication Kidney stones Abdominal aortic aneurysm Carotid artery disease with previous endarterectomy Previous history of TIA Plan Immediate smoking cessation the patient was counseled that regard Continue oxygen 2 L O2 t nasal cannula and titrate oxygen flow to maintain satu ration above 90% Switch amiodarone to oral 200 mg p.o. daily. Continue metoprolol 100 mg p.o. daily. Continue lisinopril Statin and the patient is currently on Lipitor 80 mg p.o. daily Continue Aldactone 25 mg p.o. daily Continue Farxiga. Provide the patient an incentive spirometer The patient can be transferred to telemetry unit.
[2024-06-13] MEDS: FUROSEMIDE 20 MG TAB PO SCH (20:13)
--- NOTE | 2024-06-13 22:36 | P.PN ---
Subjective Flaquito Lopez is a 73-year-old male with a past medical history significant for coronary artery disease with previous stenting, peripheral vascular disease, HTN, HLD, nicotine dependence who presented to the ED with substernal chest pain radiating into the LUE as well as shortness of breath. He states his symptoms started in the middle of the night woke him out of sleep and he drove himself to the hospital when he realized what was happening. 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 06/13 Patient was seen in the ICU, he was sitting in chair looks comfortable, he denies chest pain or dyspnea or any other new complaint He status post left heart catheterization on 06/11 with PCI placed in the LAD. With evidence of echocardiogram showing cardiomyopathy 20 to 25%. Patient currently kept on small dose of IV Lasix 20 mg twice daily besides rest of cardiac medication on the top of it is dual antiplatelet therapy with aspirin and Brilinta, amiodarone, metoprolol and lisinopril Pulmonary also following the case for his chronic interstitial lung disease. Overall patient is doing well and he might be transferred out of the ICU today Objective - Vital Signs Vital signs: Vital Signs Temp 98.1 F 06/13/24 08:00 Pulse 57 L 06/13/24 08:30 Resp 20 06/13/24 08:00 BP 108/48 06/13/24 08:00 Pulse Ox 97 06/13/24 08:20 FiO2 2 06/12/24 00:00 Intake & Output 06/12/24 06/13/24 06/13/24 18:59 06:59 18:59 Intake Total 135 Output Total 1225 1100 Balance -1090 -1100 Weight 92.6 kg 87.3 kg Intake: IV 135 Sodium Chloride 0.9% 1, 135 000 ml @ 75 mls/hr IV . [id number] [facility] Rx#:[id number] Output: Urine 1225 1100 Other: Voiding Method Urinal Urinal # Voids 2 - Exam GENERAL: The patient is alert and oriented x3, not in any acute distress. Well developed, well nourished. HEENT: Pupils are round and equally reacting to light. EOMI. No scleral icterus. No conjunctival pallor. Normocephalic, atraumatic. No pharyngeal erythema. No thyromegaly. CARDIOVASCULAR: S1 and S2 present. No murmurs, rubs, or gallops. PULMONARY: Chest is clear to auscultation, no wheezing , no crackles. ABDOMEN: Soft, nontender, nondistended, normoactive bowel sounds. No palpable organomegaly. MUSCULOSKELETAL: No joint swelling or deformity. EXTREMITIES: No cyanosis, clubbing, or pedal edema. NEUROLOGICAL: Gross neurological examination did not reveal any focal deficits. SKIN: No rashes. no petechiae. - Labs CBC & Chem 7: 06/13/24 06:10 06/13/24 06:10 Labs: Abnormal Lab Results - Last 24 Hours (Table) 06/13/24 Range/Units 06:10 Sodium 133 L (137-145) mmol/L Assessment and Plan Assessment: Acute STEMI status post LHC on 06/11 and PCI to LAD and circumflex marginal coronary artery Cardiomyopathy with ejection fraction reduced to 20 to 25% Chronic interstitial lung disease Nicotine dependence Hypertension Hyperlipidemia Acute hypoxic respiratory failure, improved History of TIA Plan: Continue with IV Lasix 20 mg twice daily Continue with aspirin and Brilinta Continue with amiodarone, metoprolol and lisinopril Continue the statin Pulmonary and cardiac consult Labs and medication were reviewed.. Continue same treatment. Continue with symptomatic treatment. Resume home medication. Monitor labs and vitals. DVT and GI prophylaxis. Further recommendations as per clinical course of the patient DVT prophylaxis: Dual antiplatelet therapy GI Prophylaxis: Pepcid
[2024-06-14 06:23] LABS: African American GFR (CKD) 62 (>60 ml/min/1.73 sqM); Anion Gap 2 mmol/L; Blood Urea Nitrogen 26 mg/dL (9-20); Calcium 8.8 mg/dL (8.4-10.2); Carbon Dioxide 30 mmol/L (22-30); Chloride 102 mmol/L (98-107); Glucose 83 mg/dL (74-99); Non-African American GFR(CKD) 54 (>60 ml/min/1.73 sqM); Potassium 4.4 mmol/L (3.5-5.1); Sodium 134 mmol/L (137-145)
[2024-06-14] MEDS: AMIODARONE 200 MG TAB PO SCH (08:42)
--- NOTE | 2024-06-14 11:18 | P.PN ---
Subjective HISTORY OF PRESENT ILLNESS: 06/13/2024 The patient is a 73-year-old male who presented with evidence of an acute myocardial infarction and underwent coronary angiography by Dr. Yost and was found to have occluded LAD and significant disease in the left circumflex and underwent stenting of both vessels. He has a known history of severe peripheral vascular disease. He has a prior cardiomyopathy but worse on the most recent echocardiogram. His echocardiogram showed an ejection fraction of 20 to 25%. In January 2024 he was found to have a fixed apical defect with an ejection fraction of 34% on his nuclear scan. He is feeling well this morning, he denies any chest discomfort, dizziness or palpitations. He denies any nausea. He is in sinus mechanism. Hemodynamically stable. 06/14/2024 Patient examined this morning. Patient is sitting up in the chair. Patient currently denies chest pain or pressure. He denies shortness of breath. He has been up ambulating in his room without difficulty. Vital signs are stable. He is maintaining sinus mechanism. Blood pressure 121/73. PHYSICAL EXAM: VITAL SIGNS: Reviewed. GENERAL: Well-developed in no acute distress. NECK: Supple. No JVD or thyromegaly LUNGS: Respirations even and unlabored. Lungs with scattered rhonchi noted. HEART: Regular rate and rhythm. S1 and S2 heard. EXTREMITIES: Normal range of motion. No clubbing or cyanosis. Peripheral pulses intact. No lower extremity edema ASSESSMENT: 1. Status post anterior myocardial infarction with stenting of the LAD and left circumflex 2. Severe ischemic cardiomyopathy 3. Severe peripheral vascular disease 4. Hyperlipidemia PLAN: Continue dual antiplatelet therapy with aspirin and Brilinta for 12 months Continue high intensity statin. LDL goal less than 70. Continue additional cardiac medications Patient will require LifeVest at the time of discharge due to severe ischemic cardiomyopathy to prevent sudden cardiac Further recommendations pending patient course Nurse practitioner note has been reviewed by physician. Signing provider agrees with the documented findings, assessment, and plan of care documented by DIRECTOR OF AUDIOLOGY as a scribe. Objective - Vital Signs Vital signs: Vital Signs Temp 98.2 F 06/14/24 08:00 Pulse 51 L 06/14/24 10:13 Resp 18 06/14/24 08:00 BP 121/73 06/14/24 08:00 Pulse Ox 96 06/14/24 10:13 FiO2 2 06/12/24 00:00 Intake & Output 06/13/24 06/14/24 06/14/24 18:59 06:59 18:59 Intake Total 490 658 118 Output Total 900 200 Balance -410 458 118 Weight 54.1 kg Intake: Oral 490 658 118 Output: Urine 900 200 Other: Voiding Method Urinal Urinal Urinal # Voids 2 1 - Labs CBC & Chem 7: 06/13/24 06:10 06/14/24 05:26 Labs: Abnormal Lab Results - Last 24 Hours (Table) 06/14/24 Range/Units 05:26 Sodium 134 L (137-145) mmol/L BUN 26 H (9-20) mg/dL Creatinine 1.30 H (0.66-1.25) mg/dL
--- NOTE | 2024-06-14 16:53 | P.PN ---
Subjective Progress Note Date: 06/14/24 This is a 73-year-old male patient with known history of coronary artery disease, peripheral vascular disease, carotid artery disease with previous endarterectomy, hypertension hyperlipidemia and chronic smoking. The patient continues to smoke around 1 pack of cigarettes a day. Noted the patient also h as history of biopsy confirmed RB ILD and this interstitial lung disease related to chronic smoking. He does have chronic inflammatory changes with fibrosis and some limited bronchiectasis based on the previous CAT scan of the chest. The patient does not utilize oxygen. The patient does not utilize any maintenance respiratory medications. He does have chronic exertional dyspnea. He presented to hospital because of an acute chest pain. He was found to have an acute ST segment elevation myocardial infarction and the patient had ST segment elevation in lead I and leads V2 through V6. The patient had a immediate cardiac catheterization and stenting of the LAD x 2. The patient had normal filling pressures. Previously placed stents in the LAD were patent. Echocardiogram was also done and the patient was found to have impaired LV function with an ejection fraction of 20 to 25% and the patient had anteroapical, anteroseptal and anterolateral hypokinesis/akinesis. Patient is currently resting comfortably in the intensive care unit. Is currently on 3 days of oxygen by nasal cannula with a pulse ox of 94%. He did encounter ventricular arrhythmias at the time of his coronary intervention and the patient is currently on amiodarone drip at 0.5 mg/min. He is also on metoprolol 100 mg p.o. daily and lisinopril 5 mg p.o. daily and Lasix 20 mg IV every 12 hours. He remains on a combination of aspirin and Brilinta. The white cell count of 10.3 with a hemoglobin 14.1 and a platelet count of 224. Sodium is at 134, BUN is 12 with a creatinine of 0.8. His troponins were negative the time of admission. He is awake and alert and communicating. Denies having any chest pain for now. On 06/13/2024, the patient is being seen for a follow-up. He is free of any chest pain. Hemodynamically stable today has been no other significant events overnight. He remains on a combination of aspirin and Brilinta. He is also on amiodarone and he was switched to oral 200 mg p.o. on a daily basis. He is also on metoprolol milligrams p.o. daily, Zestril, Farxiga and Aldactone. He is on 2 L of oxygen by nasal cannula. No chest pain or shortness of breath. The white cell count is at 8.7 with a hemoglobin 15.4. Electrolytes are all within normal limits. Normal renal function. No other significant events overnight. On 06/14/2024, the patient is being seen for a follow-up. Patient is doing extremely well. The patient got transferred out of the intensive care unit yesterday. Denies having any chest pain. The patient remains hemodynamically stable. Free of any chest pain. Free of any shortness of breath. Vitals are stable. Hemodynamically stable. No cardiac arrhythmias. No new labs are available from today. The patient remains on a combination of aspirin and B rilinta. The patient is on amiodarone 200 mg p.o. daily. The patient is also on lisinopril 5 mg p.o. daily and Lipitor 80 mg p.o. current metoprolol XL 100 mg p.o. daily. He was also started on Aldactone 25 mg p.o. daily. He did have significant cardiomyopathy and the patient is also being considered for a LifeVest at the time of discharge. His baseline ejection fraction was in the order of 20 to 25%. Cardiology remains on the case. Objective - Vital Signs Vital signs: Vital Signs Temp 98.2 F 06/14/24 08:00 Pulse 54 L 06/14/24 11:29 Resp 17 06/14/24 11:29 BP 123/65 06/14/24 11:29 Pulse Ox 96 06/14/24 11: FiO2 2 06/12/24 00:00 Intake & Output 06/13/24 06/14/24 06/14/24 18:59 06:59 18:59 Intake Total 490 658 118 Output Total 900 200 Balance -410 458 118 Weight 54.1 kg Intake: Oral 490 658 118 Output: Urine 900 200 Other: Voiding Method Urinal Urinal Urinal # Voids 2 1 - Exam The patient appeared well nourished and normally developed. Vital signs as documented. The patient is currently on 3 L O2 nasal cannula Head exam is unremarkable. No scleral icterus or corneal arcus noted. Neck is without jugular venous distension, thyromegaly, or carotid bruits. Carotid upstrokes are brisk bilaterally. Lungs are diminished bilaterally along with some few scattered expiratory wheeze Cardiac exam reveals the PMI to be normally sized and situated. Rhythm is regular. First and second heart sounds normal. No murmurs, rubs or gallops. Abdominal exam reveals normal bowel sounds, no masses, no organomegaly and no aortic enlargement. Extremities are nonedematous and both femoral and pedal pulses are diminished in lower extremities bilaterally Examination of the skin revealed no evidence of significant rashes, suspicious appearing nevi or other concerning lesions. Neurologically, the patient is awake and alert and the patient does not have any focal neurological deficit. Cranial nerves are essentially intact. - Labs CBC & Chem 7: 06/13/24 06:10 06/14/24 05:26 Labs: Abnormal Lab Results - Last 24 Hours (Table) 06/14/24 Range/Units 05:26 Sodium 134 L (137-145) mmol/L BUN 26 H (9-20) mg/dL Creatinine 1.30 H (0.66-1.25) mg/dL Assessment and Plan Plan: Acute ST segment elevation myocardial infarction, status post emergent cardiac catheterization and stenting of the LAD x 2, currently on aspirin and Brilinta. The patient is hemodynamically stable and the patient is currently free of any chest pain and the patient remains hemodynamically stable Ventricular arrhythmias/tachycardia identified at the time of cardiac catheterization, currently in normal sinus rhythm and the patient is on a combination of metoprolol and amiodarone. coronary artery disease Ischemic cardiomyopathy with systolic heart failure and ejection fraction of 20 to 25% Chronic interstitial lung disease and the patient has biopsy confirmed RB ILD, and this is an ILD related to his chronic smoking. The patient continues to smoke 1 pack of cigarettes a day COPD Acute hypoxic марина failure currently on 3 liters O2 by nasal cannula Obstructive sleep apnea, not receiving any CPAP therapy Hypertension Hyperlipidemia History of basal cell skin cancer Peripheral vascular disease with chronic claudication Kidney stones Abdominal aortic aneurysm Carotid artery disease with previous endarterectomy Previous history of TIA Plan Immediate smoking cessation the patient was counseled that regard Patient is currently on room air oxygen Continue amiodarone to oral 200 mg p.o. daily. Continue metoprolol 100 mg p.o. daily. Continue lisinopril Statin and the patient is currently on Lipitor 80 mg p.o. daily Continue Aldactone 25 mg p.o. daily Continue Farxiga. Consider LifeVest as the patient has severe cardiomyopathy with an ejection fraction of 20 to 25%. LifeVest will be likely offered at the time of discharge. Patient is outside the intensive care unit for now. Cardiology on the case.
--- NOTE | 2024-06-14 17:37 | P.PN ---
Subjective Flaquito Lopez is a 73-year-old male with a past medical history significant for coronary artery disease with previous stenting, peripheral vascular disease, HTN, HLD, nicotine dependence who presented to the ED with substernal chest pain radiating into the LUE as well as shortness of breath. He states his symptoms started in the middle of the night woke him out of sleep and he drove himself to the hospital when he realized what was happening. 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 06/13 Patient was seen in the ICU, he was sitting in chair looks comfortable, he denies chest pain or dyspnea or any other new complaint He status post left heart catheterization on 06/11 with PCI placed in the LAD. With evidence of echocardiogram showing cardiomyopathy 20 to 25%. Patient currently kept on small dose of IV Lasix 20 mg twice daily besides rest of cardiac medication on the top of it is dual antiplatelet therapy with aspirin and Brilinta, amiodarone, metoprolol and lisinopril Pulmonary also following the case for his chronic interstitial lung disease. Overall patient is doing well and he might be transferred out of the ICU today 06/14 Patient with no chest pain, no dyspnea, no other new complaint, Is mildly bradycardic Pending LifeVest which is ordered to be delivered at bedside Creatinine increased up to 1.3 which is thought secondary to diuretics, we will switch his IV Lasix 20 mg twice daily to 20 mg p.o. daily. Monitor creatinine tomorrow Possible discharge in 24 to 48 hours Objective - Vital Signs Vital signs: Vital Signs Temp 97.8 F 06/14/24 16:00 Pulse 51 L 06/14/24 16:00 Resp 18 06/14/24 16:00 BP 119/74 06/14/24 16:00 Pulse Ox 96 06/14/24 16:00 FiO2 2 06/12/24 00:00 Intake & Output 06/13/24 06/14/24 06/14/24 18:59 06:59 18:59 Intake Total 490 658 476 Output Total 900 200 925 Balance -410 458 -449 Weight 54.1 kg Intake: Oral 490 658 476 Output: Urine 900 200 925 Other: Voiding Method Urinal Urinal Urinal # Voids 2 1 1 - Exam GENERAL: The patient is alert and oriented x3, not in any acute distress. Well developed, well nourished. HEENT: Pupils are round and equally reacting to light. EOMI. No scleral icterus. No conjunctival pallor. Normocephalic, atraumatic. No pharyngeal erythema. No thyromegaly. CARDIOVASCULAR: S1 and S2 present. No murmurs, rubs, or gallops. PULMONARY: Chest is clear to auscultation, no wheezing , no crackles. ABDOMEN: Soft, nontender, nondistended, normoactive bowel sounds. No palpable organomegaly. MUSCULOSKELETAL: No joint swelling or deformity. EXTREMITIES: No cyanosis, clubbing, or pedal edema. NEUROLOGICAL: Gross neurological examination did not reveal any focal deficits. SKIN: No rashes. no petechiae. - Labs CBC & Chem 7: 06/13/24 06:10 06/14/24 05:26 Labs: Abnormal Lab Results - Last 24 Hours (Table) 06/14/24 Range/Units 05:26 Sodium 134 L (137-145) mmol/L BUN 26 H (9-20) mg/dL Creatinine 1.30 H (0.66-1.25) mg/dL Assessment and Plan Assessment: Acute STEMI status post LHC on 06/11 and PCI to LAD and circumflex marginal coronary artery Cardiomyopathy with ejection fraction reduced to 20 to 25% Mild acute kidney injury, secondary to diuresis Chronic interstitial lung disease Nicotine dependence Hypertension Hyperlipidemia Acute hypoxic respiratory failure, improved History of TIA Plan: Continue switch IV Lasix to p.o. 20 mg daily Continue with aspirin and Brilinta Continue with amiodarone, metoprolol and lisinopril Continue the statin Pulmonary and cardiac consult Labs and medication were reviewed.. Continue same treatment. Continue with symptomatic treatment. Resume home medication. Monitor labs and vitals. DVT and GI prophylaxis. Further recommendations as per clinical course of the patient DVT prophylaxis: Dual antiplatelet therapy GI Prophylaxis: Pepcid
[2024-06-15 07:03] LABS: African American GFR (CKD) 69 (>60 ml/min/1.73 sqM); Anion Gap 8 mmol/L; Blood Urea Nitrogen 30 mg/dL (9-20); Calcium 9.2 mg/dL (8.4-10.2); Carbon Dioxide 26 mmol/L (22-30); Chloride 101 mmol/L (98-107); Glucose 98 mg/dL (74-99); Non-African American GFR(CKD) 60 (>60 ml/min/1.73 sqM); Potassium 4.3 mmol/L (3.5-5.1); Sodium 135 mmol/L (137-145)
[2024-06-15] MEDS: FUROSEMIDE 20 MG TAB PO SCH (08:50)
[2024-06-15 09:36] VITALS: TEMP 97.5
--- NOTE | 2024-06-15 11:05 | P.PN ---
Subjective HISTORY OF PRESENT ILLNESS: 06/13/2024 The patient is a 73-year-old male who presented with evidence of an acute myocardial infarction and underwent coronary angiography by Dr. Yost and was found to have occluded LAD and significant disease in the left circumflex and underwent stenting of both vessels. He has a known history of severe peripheral vascular disease. He has a prior cardiomyopathy but worse on the most recent echocardiogram. His echocardiogram showed an ejection fraction of 20 to 25%. In January 2024 he was found to have a fixed apical defect with an ejection fraction of 34% on his nuclear scan. He is feeling well this morning, he denies any chest discomfort, dizziness or palpitations. He denies any nausea. He is in sinus mechanism. Hemodynamically stable. 06/14/2024 Patient examined this morning. Patient is sitting up in the chair. Patient currently denies chest pain or pressure. He denies shortness of breath. He has been up ambulating in his room without difficulty. Vital signs are stable. He is maintaining sinus mechanism. Blood pressure 121/73. 06/15/2024 Patient examined this morning at the bedside. Patient currently denies chest pain or pressure. He denies shortness of breath. Vital signs are stable. Creatinine today improved to 1.1. He has received his LifeVest. He is hoping to be discharged home today. PHYSICAL EXAM: VITAL SIGNS: Reviewed. GENERAL: Well-developed in no acute distress. NECK: Supple. No JVD or thyromegaly LUNGS: Respirations even and unlabored. Lungs diminished bilaterally HEART: Regular rate and rhythm. S1 and S2 heard. EXTREMITIES: Normal range of motion. No clubbing or cyanosis. Peripheral pulses intact. No lower extremity edema ASSESSMENT: 1. Status post anterior myocardial infarction with stenting of the LAD and left circumflex 2. Severe ischemic cardiomyopathy 3. Severe peripheral vascular disease 4. Hyperlipidemia PLAN: Continue dual antiplatelet therapy with aspirin and Brilinta for 12 months Continue high intensity statin. LDL goal less than 70. Continue additional cardiac medications Patient received his LifeVest yesterday Patient is stable for discharge home today He is to follow-up postdischarge in the office with Dr. Montoya, his primary non cdl driver Nurse practitioner note has been reviewed by physician. Signing provider agrees with the documented findings, assessment, and plan of care documented by CHEMICAL WORKER as a scribe. Objective - Vital Signs Vital signs: Vital Signs Temp 97.5 F L 06/15/24 08:00 Pulse 56 L 06/15/24 08:32 Resp 18 06/15/24 08:00 BP 109/64 06/15/24 08:00 Pulse Ox 95 06/15/24 08:00 FiO2 2 06/12/24 00:00 Intake & Output 06/14/24 06/15/24 06/15/24 18:59 06:59 18:59 Intake Total 594 480 Output Total 925 600 175 Balance -331 -600 305 Weight 86.5 kg Intake: Oral 594 480 Output: Urine 925 600 175 Other: Voiding Method Urinal Urinal Urinal # Voids 1 1 1 - Labs CBC & Chem 7: 06/13/24 06:10 06/15/24 06:30 Labs: Abnormal Lab Results - Last 24 Hours (Table) 06/15/24 Range/Units 06:30 Sodium 135 L (137-145) mmol/L BUN 30 H (9-20) mg/dL
[2024-06-15 11:33] VITALS: BP 104/63; RESP 17
[2024-06-15 12:36] VITALS: PULSE 58
--- NOTE | 2024-06-15 14:07 | P.PN ---
Subjective Progress Note Date: 06/15/24 This is a 73-year-old male patient with known history of coronary artery disease, peripheral vascular disease, carotid artery disease with previous endarterectomy, hypertension hyperlipidemia and chronic smoking. The patient continues to smoke around 1 pack of cigarettes a day. Noted the patient also h as history of biopsy confirmed RB ILD and this interstitial lung disease related to chronic smoking. He does have chronic inflammatory changes with fibrosis and some limited bronchiectasis based on the previous CAT scan of the chest. The patient does not utilize oxygen. The patient does not utilize any maintenance respiratory medications. He does have chronic exertional dyspnea. He presented to hospital because of an acute chest pain. He was found to have an acute ST segment elevation myocardial infarction and the patient had ST segment elevation in lead I and leads V2 through V6. The patient had a immediate cardiac catheterization and stenting of the LAD x 2. The patient had normal filling pressures. Previously placed stents in the LAD were patent. Echocardiogram was also done and the patient was found to have impaired LV function with an ejection fraction of 20 to 25% and the patient had anteroapical, anteroseptal and anterolateral hypokinesis/akinesis. Patient is currently resting comfortably in the intensive care unit. Is currently on 3 days of oxygen by nasal cannula with a pulse ox of 94%. He did encounter ventricular arrhythmias at the time of his coronary intervention and the patient is currently on amiodarone drip at 0.5 mg/min. He is also on metoprolol 100 mg p.o. daily and lisinopril 5 mg p.o. daily and Lasix 20 mg IV every 12 hours. He remains on a combination of aspirin and Brilinta. The white cell count of 10.3 with a hemoglobin 14.1 and a platelet count of 224. Sodium is at 134, BUN is 12 with a creatinine of 0.8. His troponins were negative the time of admission. He is awake and alert and communicating. Denies having any chest pain for now. On 06/13/2024, the patient is being seen for a follow-up. He is free of any chest pain. Hemodynamically stable today has been no other significant events overnight. He remains on a combination of aspirin and Brilinta. He is also on amiodarone and he was switched to oral 200 mg p.o. on a daily basis. He is also on metoprolol milligrams p.o. daily, Zestril, Farxiga and Aldactone. He is on 2 L of oxygen by nasal cannula. No chest pain or shortness of breath. The white cell count is at 8.7 with a hemoglobin 15.4. Electrolytes are all within normal limits. Normal renal function. No other significant events overnight. On 06/14/2024, the patient is being seen for a follow-up. Patient is doing extremely well. The patient got transferred out of the intensive care unit yesterday. Denies having any chest pain. The patient remains hemodynamically stable. Free of any chest pain. Free of any shortness of breath. Vitals are stable. Hemodynamically stable. No cardiac arrhythmias. No new labs are available from today. The patient remains on a combination of aspirin and B rilinta. The patient is on amiodarone 200 mg p.o. daily. The patient is also on lisinopril 5 mg p.o. daily and Lipitor 80 mg p.o. current metoprolol XL 100 mg p.o. daily. He was also started on Aldactone 25 mg p.o. daily. He did have significant cardiomyopathy and the patient is also being considered for a LifeVest at the time of discharge. His baseline ejection fraction was in the order of 20 to 25%. Cardiology remains on the case. On 06/15/2024, patient is awake and alert and denies having any specific complaints. Remains on a combination of aspirin and Brilinta. Remains on amiodarone milligrams p.o. daily. Remains on metoprolol 100 mg p.o. daily. Remains on Aldactone and Lasix. He is on room air oxygen. No chest pain. Electrolytes are stable with a BUN of 38 and creatinine of 1.1 and sodium levels at 135. Being considered for LifeVest. Objective - Vital Signs Vital signs: Vital Signs Temp 97.5 F L 06/15/24 08:00 Pulse 56 L 06/15/24 08:32 Resp 18 06/15/24 08:00 BP 109/64 06/15/24 08:00 Pulse Ox 95 06/15/24 08:00 FiO2 2 06/12/24 00:00 Intake & Output 06/14/24 06/15/24 06/15/24 18:59 06:59 18:59 Intake Total 594 480 Output Total 925 600 175 Balance -331 -600 305 Weight 86.5 kg Intake: Oral 594 480 Output: Urine 925 600 175 Other: Voiding Method Urinal Urinal Urinal # Voids 1 1 1 - Exam The patient appeared well nourished and normally developed. Vital signs as documented. The patient is currently on room air oxygen Head exam is unremarkable. No scleral icterus or corneal arcus noted. Neck is without jugular venous distension, thyromegaly, or carotid bruits. Carotid upstrokes are brisk bilaterally. Lungs are diminished bilaterally along with some few scattered expiratory wheeze Cardiac exam reveals the PMI to be normally sized and situated. Rhythm is regular. First and second heart sounds normal. No murmurs, rubs or gallops. Abdominal exam reveals normal bowel sounds, no masses, no organomegaly and no aortic enlargement. Extremities are nonedematous and both femoral and pedal pulses are diminished in lower extremities bilaterally Examination of the skin revealed no evidence of significant rashes, suspicious appearing nevi or other concerning lesions. Neurologically, the patient is awake and alert and the patient does not have any focal neurological deficit. Cranial nerves are essentially intact. - Labs CBC & Chem 7: 06/13/24 06:10 06/15/24 06:30 Labs: Abnormal Lab Results - Last 24 Hours (Table) 06/15/24 Range/Units 06:30 Sodium 135 L (137-145) mmol/L BUN 30 H (9-20) mg/dL Assessment and Plan Plan: Acute ST segment elevation myocardial infarction, status post emergent cardiac catheterization and stenting of the LAD x 2, currently on aspirin and Brilinta. The patient is hemodynamically stable and the patient is currently free of any chest pain and the patient remains hemodynamically stable Ventricular arrhythmias/tachycardia identified at the time of cardiac catheterization, currently in normal sinus rhythm and the patient is on a combination of metoprolol and amiodarone. coronary artery disease Ischemic cardiomyopathy with systolic heart failure and ejection fraction of 20 to 25% Chronic interstitial lung disease and the patient has biopsy confirmed RB ILD, and this is an ILD related to his chronic smoking. The patient continues to smoke 1 pack of cigarettes a day COPD Acute hypoxic respiratory failure currently on room air oxygen Obstructive sleep apnea, not receiving any CPAP therapy Hypertension Hyperlipidemia History of basal cell skin cancer Peripheral vascular disease with chronic claudication Kidney stones Abdominal aortic aneurysm Carotid artery disease with previous endarterectomy Previous history of TIA Plan Immediate smoking cessation the patient was counseled that regard Patient is currently on room air oxygen Continue amiodarone to oral 200 mg p.o. daily. Continue metoprolol 100 mg p.o. daily. Continue lisinopril Statin and the patient is currently on Lipitor 80 mg p.o. daily Continue Aldactone 25 mg p.o. daily Continue Farxiga. Consider LifeVest as the patient has severe cardiomyopathy with an ejection fraction of 20 to 25%. LifeVest will be likely offered at the time of discharge. Cardiology on the case. Will sign off the case
== END 2024-06-15 14:05 | disposition home or self-care (01) | DRG 321 ==
LOC: EC 09:16 → 2SICU 09:33 → 3SCARD 06-13 14:53
PROVIDERS: ADMIT Family Medicine; ATTEND Family Medicine
PROC: 027137Z Dilation of Coronary Artery, Two Arteries with Four or More Drug-eluting Intraluminal Devices, Percutaneous Approach (ICD-10-PCS; principal; 2024-06-12)
PROC: B2111ZZ Fluoroscopy of Multiple Coronary Arteries using Low Osmolar Contrast (ICD-10-PCS; principal; 2024-06-12)
PROC: 4A023N7 Measurement of Cardiac Sampling and Pressure, Left Heart, Percutaneous Approach (ICD-10-PCS; principal; 2024-06-12)
DX: I21.02 ST elevation (STEMI) myocardial infarction involving left anterior descending coronary artery (principal); J96.01 Acute respiratory failure with hypoxia; J84.9 Interstitial pulmonary disease, unspecified; N17.9 Acute kidney failure, unspecified; F17.210 Nicotine dependence, cigarettes, uncomplicated; E78.5 Hyperlipidemia, unspecified; I11.0 Hypertensive heart disease with heart failure; I25.10 Atherosclerotic heart disease of native coronary artery without angina pectoris; I25.2 Old myocardial infarction; I25.5 Ischemic cardiomyopathy; G47.30 Sleep apnea, unspecified; I50.9 Heart failure, unspecified; I70.203 Unspecified atherosclerosis of native arteries of extremities, bilateral legs; J47.9 Bronchiectasis, uncomplicated; T50.2X5A Adverse effect of carbonic-anhydrase inhibitors, benzothiadiazides and other diuretics, initial encounter; Z79.02 Long term (current) use of antithrombotics/antiplatelets; Z79.82 Long term (current) use of aspirin; Z79.899 Other long term (current) drug therapy; Z80.0 Family history of malignant neoplasm of digestive organs; Z85.828 Personal history of other malignant neoplasm of skin; Z86.73 Personal history of transient ischemic attack (TIA), and cerebral infarction without residual deficits; Z87.442 Personal history of urinary calculi; Z95.5 Presence of coronary angioplasty implant and graft; Z71.3 Dietary counseling and surveillance
CPT/HCPCS: 71045; 80048; 80053; 83735; 84484; 85025; 85027; 85610; 85730; 93005; 93306; 93458; 94640; 96374; 96375; 99291

== ENCOUNTER → 2024-09-07 | Outpatient (CLI) | payer MEDICARE, BC ==
--- NOTE | 2024-09-07 10:04 | MR ---
EXAMINATION TYPE: MR brain wo/w con DATE OF EXAM: 09/07/2024 9:19 AM COMPARISON: CT 12/17/2018 CLINICAL INDICATION: Male, 73 years old with history of R42 DIZZINESS AND GIDDINESS, Dizziness, neck and left side head pain TECHNIQUE: Multiplanar, multiecho imaging on a 3.0 Yesenia magnet is performed through the brain. Stud y is performed within 24 hours of arrival to the hospital.Multiplanar, multiecho imaging on a 3.0 Katharine la magnet is performed through the knee. IV Contrast: 9 mL Gadobutrol (None, if empty) FINDINGS: The craniovertebral junction is normal. The pituitary is normal. Diffusion-weighted imaging is performed. No abnormal hyperintensity is present to suggest an acute i ntracranial infarct or acute ischemic change. There may be cavernous angioma or vascular malformation in the right parietal cortex. This has some m ild blooming artifact on gradient imaging this is hypointense on diffusion and isointense on inversio n recovery. Minimal enhancement may be present. No edema is adjacent. Scattered. Ventricular white matter hyperintensity on inversion recovery is present compatible with c hronic white matter ischemic changes. Ventricles and sulci are appropriate for the patient age. IMPRESSION: 1. 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 No vasogenic edema or suspicious enhancement is evident. 2. Chronic appearing periventricular white matter ischemic changes. [facility], , 09/07/2024 10:02 AM
== END | disposition home or self-care (01) ==
LOC: RADMRIMAIN 08:11
PROVIDERS: ATTEND Family Medicine
DX: I67.82 Cerebral ischemia (principal)
CPT/HCPCS: 70553; A9585

== ENCOUNTER 2024-11-28 12:54 | Day surgery (SDC) | payer MEDICARE, BC ==
[2024-11-25 12:10] VITALS: BMI 30.4
[~2024-11-28 12:54] MED LIST changes: +LACTATED RINGERS 1,000 ML IV SCH; -REGADENOSON 0.4 MG/5 ML SYRINGE IV PRN; +SODIUM CHLORIDE 0.9% 1,000 ML IV SCH
[2024-11-28 14:31] VITALS: RESP 16
[2024-11-28] MEDS ORDERED: PROPOFOL 10 MG/ML 20 ML VIAL IV ONE (14:38)
[2024-11-28] MEDS ORDERED: fentaNYL (PF) 50 MCG/ML 2 ML AMP ONE (14:38)
[2024-11-28] MEDS ORDERED: MIDAZOLAM 2 MG/2 ML VIAL ONE (14:38)
[2024-11-28 14:51] LABS: Basophils # (A) 0.06 10*3/uL (0.00-0.10); Basophils % (A) 0.9 %; Eosinophils # (A) 0.15 10*3/uL (0.04-0.35); Eosinophils % (A) 2.2 %; HCT 42.6 % (39.6-50.0); HGB 13.9 g/dL (13.0-17.0); Lymphocytes # (A) 1.94 10*3/uL (0.90-5.00); Lymphocytes % (A) 28.2 %; MCH 27.2 pg (27.0-32.0); MCHC 32.6 g/dL (32.0-37.0); MCV 83.4 fL (80.0-97.0); Mean Platelet Volume 10.1 fL (9.5-12.2); Monocytes # (A) 0.74 10*3/uL (0.20-1.00); Monocytes % (A) 10.8 %; Neutrophils # (A) 3.96 10*3/uL (1.80-7.70); Neutrophils % (A) 57.6 %; Platelet Count 259 10*3/uL (140-440); RBC 5.11 10*6/uL (4.40-5.60); RDW 13.9 % (11.5-14.5); WBC 6.87 10*3/uL (4.50-10.00)
[2024-11-28 15:07] LABS: African American GFR (CKD) 79 (>60 ml/min/1.73 sqM); Anion Gap 9 mmol/L; Blood Urea Nitrogen 18 mg/dL (9-20); Calcium 9.3 mg/dL (8.4-10.2); Carbon Dioxide 25 mmol/L (22-30); Chloride 103 mmol/L (98-107); Glucose 84 mg/dL (74-99); Non-African American GFR(CKD) 68 (>60 ml/min/1.73 sqM); Potassium 4.2 mmol/L (3.5-5.1); Sodium 137 mmol/L (137-145)
[2024-11-28] MEDS: ceFAZolin 2 GM in DEXTROSE 5% IN WATER 50 ML IVPB PRN (15:12)
[2024-11-28] MEDS: IV FLUID CONTINUATION 1,000 ML IV ONE (15:18)
[2024-11-28] MEDS: LIDOCAINE 1% INJ 10MG/ML (20 ML MDV) SQ ONE (15:19)
[2024-11-28] MEDS: ROPIVACAINE 5 MG/ML 30 ML VIAL MISCELLANE ONE (15:19)
[2024-11-28] MEDS: HEPARIN SODIUM,PORCINE (1 ML) 2,500 UNIT in SODIUM CHLORIDE 0.9% 250 ML IRRIGATION ONE (15:21)
[2024-11-28] MEDS: ceFAZolin 1,000 MG in SODIUM CHLORIDE 0.9% IRRIG BTL 250 ML IRRIGATION ONE (15:22)
--- NOTE | 2024-11-28 16:00 | P.EPPROC ---
- EP Procedure Note Electrophysiology Procedure Note: Diagnosis Cardiomyopathy, chronic, ischemic cardiomyopathy Congestive heart failure, systolic, class 2 heart failure On guideline directed medical treatment guideline directed old anterior wall OR, CAD Procedure: Single ICD implantation for management of risk of sudden cardiac Defibrillation level testing: Defibrillation successful at 10 J Upper extremity venogram, left Talent Development Analyst: Dr. Eubanks Result: Single chamber ICD implantation, RV ICD lead: Magdaleno 62 cm lead Pacing threshold 0.5 V at 0.5 ms, R waves 12 mV, pacing impedance 610 ohms High-voltage impedance 86 ohms ICD generator: Magdaleno [place], VR, ICD Procedure details: Patient was brought to the EP lab in a fasting state. Written informed consent was obtained prior to the procedure. Options, pros and cons, benefits and risks and complications discussed with patient in detail prior to the procedure (shared decision making document, from [facility]). Importance of continuing medical treatment emphasized. Alternatives discussed. Patient would like to proceed with ICD implant. Left upper extremity venogram performed. 15 mL IV dye injected in the left arm. Patent axillary/subclavian vein The left pectoral area was prepped and draped as a protocol. IV antibiotics administered 1% lidocaine was used for local anesthesia. A 4 cm incision was made parallel to the deltopectoral groove, about 1.5 cm medial to it. The incision was carried down to the level of the pectoralis muscle and the subfascial pocket was made. Hemostasis was assured. The axillary vein access was obtained. Appropriately sized venous sheath was placed. ICD lead implanted in the right ventricle and screwed in. ICD lead tested for threshold, sensing, impedances and tested with high output pacing for diaphragmatic stimulation Lead secured to the underlying transverse muscle after removing sheaths . Pocket irrigated with antibiotic solution Leads connected to the ICD generator. Wound closed in 3 layers and dressed per protocol ICD was interrogated and programmed. Appropriate pacing parameters, antitachycardia therapies with antitachycardia pacing cardioversion defibrillations programmed. Patient tolerated the procedure well without any acute complications. See scanned device report in EMR for lead details Defibrillation level testing Ventricular fibrillation was induced and successfully detected without any dropouts and successfully defibrillated with a 10 J shock Anode RV polarity, least sensitivity, charge time 1.6 seconds, high-voltage impedance 85 ohms, no post shock noise
[2024-11-28] MEDS ORDERED: ACETAMINOPHEN TAB 325 MG TAB PO PRN (16:04)
[2024-11-28] MEDS ORDERED: ACETAMINOPHEN IV (For NPO) 1,000 MG in EMPTY BAG 1 BAG IVPB ONE (16:15)
--- NOTE | 2024-11-28 17:51 | XR ---
EXAMINATION TYPE: XR chest 1V portable DATE OF EXAM: 11/28/2024 5:41 PM COMPARISON: Chest radiographs from 06/11/2024 TECHNIQUE: XR chest 1V portable Portable AP radiograph of the chest. CLINICAL INDICATION:Male, 74 years old with history of Lead placement check; FINDINGS: Lungs/Pleura: Diffuse interstitial density pattern. No pneumothorax or pleural effusion. Pulmonary vascularity: Unremarkable. Heart/mediastinum: Cardiomediastinal silhouette is enlarged and stable. Atherosclerotic calcificatio ns are seen in the aorta. Single-lead cardiac conduction device overlying the left hemithorax with le ad projecting over the right ventricle. Musculoskeletal: No acute osseous pathology. IMPRESSION: 1. Single cardiac lead overlies the right ventricle. 2. Similar diffuse interstitial prominence compatible with known pulmonary fibrosis. [facility], , 11/28/2024 5:49 PM
[2024-11-28 19:03] VITALS: BP 107/75
[2024-11-28 19:38] VITALS: PULSE 73; TEMP 98
[2024-11-28] MEDS: ceFAZolin 2 GM in DEXTROSE 5% IN WATER 50 ML IVPB SCH (19:52)
[2024-11-28] MEDS ORDERED: SACUBITRIL/VALSARTAN 24 MG-26 MG TABLET PO SCH (21:00)
[2024-11-29] MEDS ORDERED: ATORVASTATIN 80 MG TAB PO SCH (09:00)
[2024-11-29] MEDS ORDERED: SPIRONOLACTONE 25 MG TAB PO SCH (09:00)
[2024-11-29] MEDS ORDERED: ASPIRIN 81 MG PO SCH (09:00)
[2024-11-29] MEDS ORDERED: METOPROLOL SUCCINATE (ER) 50 MG TAB.ER.24H PO SCH (09:00)
[2024-11-29] MEDS ORDERED: AMIODARONE 100 MG TAB PO SCH (09:00)
[2024-11-29] MEDS ORDERED: CLOPIDOGREL 75 MG TAB PO SCH (09:00)
[2024-11-29] MEDS ORDERED: FUROSEMIDE 20 MG TAB PO SCH (09:00)
== END 2024-11-28 21:40 | disposition home or self-care (01) ==
LOC: CATHEP 12:54 → 6NMEDSUR 15:56 → CATHEP 21:40
PROVIDERS: ATTEND Internal Medicine Clinical Cardiac Electrophysiology
DX: I25.5 Ischemic cardiomyopathy (principal); I25.10 Atherosclerotic heart disease of native coronary artery without angina pectoris; I11.0 Hypertensive heart disease with heart failure; I50.22 Chronic systolic (congestive) heart failure; I25.2 Old myocardial infarction; Z79.02 Long term (current) use of antithrombotics/antiplatelets; Z79.82 Long term (current) use of aspirin; Z79.899 Other long term (current) drug therapy; Z95.5 Presence of coronary angioplasty implant and graft
CPT/HCPCS: 93641; 33249; 80048; 85025; 71045; C1722; C1892; C1769; C1777; J2250; J1644; J0690 ×2; J2003; J3010; J2795; J2704